=== PATIENT | male | born 1960 | race Caucasian/White ===

== ENCOUNTER → 2017-05-20 06:26 | Outpatient (CLI) | payer OTHER, SELFPAY ==
--- NOTE | 2017-05-20 11:21 | STRESSREP_ITS ---
Stress Test Report Exercise myocardial perfusion stress test. 56-year-old man with previous coronary artery disease from [place] [employer] physical. Medications simvastatin and aspirin. Stress test: Resting EKG demonstrates normal sinus rhythm with a rate of 72 bpm and premature ventricular complexes. Resting blood pressure is 140/88 mmHg. Patient exercised according to the regular Kit protocol total duration of 9 minutes completing stage III of the Kit protocol. The maximum heart rate attained was 137 bpm was 84% maximum predicted heart rate maximum workload attained was 10.1 metabolic equivalents. Patient maintained sinus rhythm throughout the recording with occasional premature atrial and ventricular complexes. There was one episode of ventricular couplet activity noted. At rest there were no ST or T-wave changes noted suggest ischemia at peak exercise upsloping ST changes only were noted with no meet the criteria for ischemia. The resting blood pressure was 140/88 with a peak blood pressure 164/78. No clinical angina was noted the test was terminated due to leg fatigue rate pressure product was 22,300. Myocardial perfusion protocol: 10.0 mCi of sestamibi was injected at rest. The patient exercised according to regular Kit protocol for 9 minutes attaining 84% of maximum predicted heart rate and a workload of 10.1 metabolic equivalents at peak exercise 35.0 mCi of technetium 99m sestamibi was injected stress images were obtained stress and rest images were reconstructed and compared in the short axis vertical long horizontal long axis. Gated images were not obtained. Perfusion SPECT analysis: Review of the stress images demonstrate a normal cardiac silhouette size. There is uniform uptake of tracer noted in all areas of the myocardium the septum anterior wall lateral inferior wall appeared to be well perfused. The resting images appear to demonstrate a similar patent. No obvious areas of reversibility are noted suggest ischemia. No clinical angina is noted. Conclusion: Normal exercise myocardial perfusion stress test at a high workload. No clinical angina noted. Good functional aerobic capacity.
== END ==
PROVIDERS: Family Provider Family Medicine; PCP Family Medicine; Visit Provider Internal Medicine Cardiovascular Disease
DX: I25.10 Atherosclerotic heart disease of native coronary artery without angina pectoris (principal); Z95.5 Presence of coronary angioplasty implant and graft
CPT/HCPCS: 78452; 93017; A9500; A4216

== ENCOUNTER → 2017-08-17 06:58 | Outpatient (CLI) | payer OTHER, SELFPAY ==
[2017-08-17 08:53] LABS: AST(SGOT) 23 U/L (15-37); Alanine Aminotransfer ALT/SGPT 37 U/L (16-61); Albumin, Serum 3.7 g/dL (3.2-5.0); Alkaline Phosphatase 78 U/L (45-117); Bilirubin, Direct 0.23 mg/dL (0.00-0.30); Cholesterol 142 mg/dL (200); Globulin 3.3 g/dL (2.2-4.2); High Density Lipoprotein 46 mg/dL; Triglycerides 115 mg/dL; Very Low Density Lipoprotein 23 mg/dL (5-40)
== END ==
PROVIDERS: Family Provider Family Medicine; PCP Family Medicine; Visit Provider Internal Medicine Cardiovascular Disease
DX: E78.5 Hyperlipidemia, unspecified (principal); I25.10 Atherosclerotic heart disease of native coronary artery without angina pectoris
CPT/HCPCS: 36415; 80061; 80076

== ENCOUNTER → 2018-07-26 11:30 | Outpatient (CLI) | payer OTHER, SELFPAY ==
[2017-08-13 15:56] VITALS: BMI 31.4
[2018-07-26 10:29] LABS: AST(SGOT) 27 U/L (15-37); Alanine Aminotransfer ALT/SGPT 41 U/L (16-61); Albumin, Serum 3.8 g/dL (3.2-5.0); Alkaline Phosphatase 85 U/L (45-117); Bilirubin, Direct 0.27 mg/dL (0.00-0.30); Cholesterol 148 mg/dL (200); Globulin 3.5 g/dL (2.2-4.2); High Density Lipoprotein 49 mg/dL; Protein, Total 7.3 g/dL (6.4-8.2); Triglycerides 95 mg/dL; Very Low Density Lipoprotein 19 mg/dL (5-40)
== END ==
PROVIDERS: Referring Provider Internal Medicine Cardiovascular Disease; Visit Provider Internal Medicine Cardiovascular Disease
DX: E78.5 Hyperlipidemia, unspecified (principal); I25.10 Atherosclerotic heart disease of native coronary artery without angina pectoris; Z98.61 Coronary angioplasty status
CPT/HCPCS: 36415; 80061; 80076

== ENCOUNTER → 2019-02-20 10:43 | Outpatient (CLI) | payer OTHER, SELFPAY ==
[2018-08-14 16:15] VITALS: BMI 30.9
--- NOTE | 2019-02-20 11:30 | MRI_ITS ---
PROCEDURE: MRI LOWER EXTREMITY RIGHT TIBIA/FIBULA REASON FOR EXAM: Medial mid calf pain status post injury. TECHNIQUE: Standardized fat and water weighted pulse sequences were obtained in all 3 orthogonal planes. COMPARISON: None. FINDINGS: Normal tibia and fibula, without a periosteal, cortical or cancellous marrow abnormality. There is a partial tear of the medial gastrocnemius musculotendinous junction (inversion recovery axial image 17) with mild adjacent fluid/hemorrhage and mild edema in the distal medial gastrocnemius muscle (inversion recovery coronal image 9). The distal Achilles tendon is intact (T2 sagittal images 10, 11). There is edema in the subcutis adipose space, greatest anteriorly. There is no solid, cystic or lipomatous mass lesion of the subcutis adipose space. MRI/Lower Ext/No Jt/w/o IMPRESSION: Partial tear of the medial gastrocnemius musculotendinous junction. Electronically Signed: Levar Mckeon MD at 12:50 EST Tel , Service support ,
--- NOTE | 2019-02-20 11:45 | RAD_ITS ---
STUDY: X-RAY - ORBITS REASON FOR EXAM: Male, 58 years old. History of metal in the eyes from previous work injury. TECHNIQUE: 2 view(s) of the orbits were obtained. COMPARISON: None. FINDINGS: Normal bilateral orbits without a metallic orbital foreign body. Normal visualized facial bones. Mucosal thickening of the left maxillary sinus. The soft tissue structures are unremarkable. RAD/Orbits for Foreign Body IMPRESSION: No demonstrated metallic orbital foreign body. The patient is cleared for an MRI examination. Electronically Signed: Douglas Ring, at 11:09 EST , Service support ,
== END ==
PROVIDERS: Family Provider Student in an Organized Health Care Education/Training Program; PCP Student in an Organized Health Care Education/Training Program; Referring Provider Emergency Medicine; Visit Provider Emergency Medicine
DX: S86.911A Strain of unspecified muscle(s) and tendon(s) at lower leg level, right leg, initial encounter (principal)
CPT/HCPCS: 70030; 73718

== ENCOUNTER → 2019-03-23 05:50 | Outpatient (CLI) | payer OTHER, SELFPAY ==
[2018-08-14 16:15] VITALS: BMI 30.9
--- NOTE | 2019-03-23 13:05 | STRESSREP ---
Stress Test Report Pharmacologic myocardial perfusion stress test. 58-year-old man with a history of previous right coronary angioplasty. Stress protocol: Resting EKG demonstrates normal sinus rhythm with a rate of 71 bpm occasional premature ventricular complex noted resting blood pressure is 136/86 mmHg. 0.4 mg of regadenoson was infused per usual protocol followed by Intravenous saline flush injection continuous EKG monitoring was performed. The maximum heart rate attained was 100 bpm which was 62% of maximum predicted heart rate the maximum workload was 1 metabolic equivalent. At rest there were no ST or T wave changes noted suggest abnormal flow reserve at peak infusion, nonspecific ST-T wave changes were noted with no meet the criteria for ischemia. The resting blood pressure was 136/86 with a final blood pressure 120/82. Myocardial perfusion protocol. 12.0 mCi of technetium 99m sestamibi was injected at rest. 0.4 mg of regadenoson was infused per usual protocol peak infusion 36.0 mCi of technetium 99m sestamibi was injected stress images were obtained stress and rest images were reconstructed and compared in the short axis vertical long horizontal long axis. Gated images was obtained PACS Perfusion SPECT analysis: Review of the stress images demonstrate a normal cardiac silhouette size. There is a small defect noted in the basal to mid inferior wall present on the stress and rest images to a similar extent. The above is suggestive of a basal inferior infarct noted no obvious areas of reversibility are noted. No ischemia is noted. Gated SPECT analysis: The gated ejection fraction is noted to be 67%. Conclusion: Normal pharmacologic myocardial perfusion stress test with evidence of basal inferior infarct. Preserved ejection fraction.
== END ==
PROVIDERS: Family Provider Student in an Organized Health Care Education/Training Program; PCP Student in an Organized Health Care Education/Training Program; Referring Provider Nurse Practitioner Family; Visit Provider Nurse Practitioner Family
DX: I25.10 Atherosclerotic heart disease of native coronary artery without angina pectoris (principal); E78.5 Hyperlipidemia, unspecified; Z98.61 Coronary angioplasty status
CPT/HCPCS: 78452; 93017; A9500; A4216; J2785

== ENCOUNTER 2019-11-13 03:54 | Emergency (ER) | payer BC, SELFPAY ==
[2019-08-20 14:52] VITALS: BMI 31.6
[2019-11-13 03:55] VITALS: BP 154/94; PULSE 61; RESP 18; TEMP 36.3; O2SAT 96; BMI 32.1
--- NOTE | 2019-11-13 04:05 | CT_ITS ---
STUDY: CT ABDOMEN AND PELVIS WITHOUT CONTRAST REASON FOR EXAM: Male, 59 years old patient with right-sided flank pain starting this morning. Past medical history of GERD, kidney stones and prior hernia repair. RADIATION DOSAGE (If Supplied By Facility): CTDIvol = ( 12.79 ) mGy, DLP = ( 690.23 ) mGycm TECHNIQUE: Transaxial images were obtained from the dome of the diaphragm to the symphysis pubis without oral contrast, and without intravenous contrast. Sagittal and coronal images were reconstructed. Individualized dose optimization techniques were used for this CT. COMPARISON: None. FINDINGS: There is a small calcified left lower lobe pulmonary nodule. Views of the bumpy pleural thickening at the right lung base and left lung base. No pleural effusions are visualized. The visualized portions of the heart are within normal limits. There is increased epicardial and pericardial fat. There are multiple calcified mediastinal and hilar lymph nodes. Normal liver. Normal gallbladder and extrahepatic biliary system. Normal spleen. Normal pancreas. Normal bilateral adrenal glands. There is mild right-sided hydronephrosis and hydroureter secondary to a distal ureteral calculus at the ureterovesical junction measuring up to 4 mm in greatest dimension. Normal left kidney. Normal visualized stomach. There is no evidence for dilated bowel, ascites or pneumoperitoneum. Small bowel has a grossly normal appearance. The descending colon is nondistended. Stool is visible in the ascending colon and transverse colon primarily. The appendix is visualized and appears normal. There is mild atherosclerotic calcification of the abdominal aorta and common iliac arteries, without a demonstrated aneurysm. Normal inferior vena cava. Normal retroperitoneum. Normal urinary bladder. Normal visualized prostate gland. There are multiple pelvic calcifications probably secondary to phleboliths. Normal abdominal wall. Normal osseous structures. CT/Abdomen/Pelvis without Cont IMPRESSION: Mild right-sided hydronephrosis and hydroureter secondary to distal ureteral calculus. Electronically Signed: Marlene Krueger MD at 6:27 EDT , Service support ,
[2019-11-13] MEDS: Ketorolac 30 MG/ML Syringe 15 MG IV (04:12)
[2019-11-13 04:13] LABS: Absolute Neutrophil Count 4.2 X10^3/uL (2.0-7.7); Basophil# 0.04 X10^3/uL; Basophil% 0.7 % (0-1); Eosinophil# 0.13 X10^3/uL; Eosinophils% 2.2 % (0-5); Hematocrit 47.8 % (40-54); Hemoglobin 15.6 g/dL (13.0-16.5); Lymphocyte % 18.5 % (19-41); Mean Corp Hgb Conc 32.6 g/dL (32-36); Mean Corpuscular Hgb 29.4 pg (27.0-32.0); Mean Corpuscular Volume 90.2 fL (80-94); Mean Platelet Vol. 9.3 fl (6.2-12.0); Monocyte# 0.44 X10^3/uL; Monocyte% 7.4 % (0-10); NRBC Flagged by Analyzer 0 % (0-5); Neutrophil # 4.22 X10^3/uL (2.7-7.7); Platelet Count 208 K/mm3 (150-450); RBC Distribution Width CV 13.7 % (11.6-14.6); RBC Distribution Width SD 44.7 fl (35.1-43.9); White Blood Count 5.9 K/mm3 (4.4-11.0)
[2019-11-13] MEDS: 0.9% Normal Saline 1,000 ML 125 ML IV (04:13)
--- NOTE | 2019-11-13 04:13 | ED.DCSUM_ITS ---
- ER Visit Summary Date of Service: 11/13/19 Chief Complaint: [Right flank pain] History of Present Illness: The patient is a 59 M [presents to the emergency department with right lower quadrant and flank pain that started around 1:30 AM. Patient states the pain initially was mild but then became severe and rated about a 9 out of 10 at its worst. Currently states his pain is down to about a 2 although he does feel some pressure in the lower abdomen. Patient states that about 30 years ago he had a kidney stone. He denies any fevers or recent illness. He did have some mild nausea associated with the pain. Patient did feel like he needed to urinate but then only was able to get a small amount of urine out. He denies any blood in his stool. Patient has history of coronary artery disease, high cholesterol, pulmonary fibrosis, asthma, and history of kidney stones. Patient has had prior hernia repair.] Physical Examination: [HEENT-PERRLA, EOMI. Cranial nerves II through XII grossly intact. TMs clear. Mucous membranes moist. No adenopathy. Cardiovascular-regular rate and rhythm without murmur or ectopy Lungs-clear to auscultation, chest wall stable without crepitus or subcu emphysema Abdomen-normoactive bowel sounds, soft. Patient has tenderness palpation over right lower quadrant with some guarding. There is no rebound, rigidity, or peritoneal signs. No CVA tenderness on exam. Extremities-intact ?4, normal range of motion, normal pulses, atraumatic] Test Results: [CBC with differential was unremarkable. Chemistries unremarkable. Urinalysis showed 10-25 RBCs without signs of infection. CT scan of the abdomen pelvis without contrast interpreted by myself as ureteral calcification at the right UVJ with mild hydroureter and hydronephrosis. Stone measures approximately 4.9 mm however official report from radiology pending.] Emergency Department Course and Treatment: [She was medicated with Toradol 15 mg IV. Patient continues to be quite comfortable.] Treatment Plan: [We will be given urine strainers. Patient given a prescription for [place] for pain.] Disposition: [Discharged home in stable condition. Patient advised to follow-up with urology within next 3 to 5 days. Patient advised to return if worsening pain, fever, vomiting, or condition should worsen anyway.] Impression: [Right-sided ureteral lithiasis with colic] This note was generated with [employer] dictation software. It may contain incorrect words, spelling, and punctuation that were not noted in review of the chart prior to signing ED Disposition - Plan for ED Patient: Referrals: Kal Vazquez DO [Primary Care Provider] -
[2019-11-13 04:18] LABS: Squamous Epithelial Cells - UA 0 SEEN /hpf (0-5)
[2019-11-13 04:19] LABS: Color, Urine Yellow (Yellow); Glucose, Dipstick Normal (Normal); Ketone-Dipstick 5 mg/dl (Negative); Leukocyte Esterase-Dipstick 25 /ul (Negative); Nitrite-Dipstick Negative (Negative); Occult Blood-Urine 250 /ul (Negative); Protein-Dipstick 30 mg/dl (Negative); Urine Bilirubin Dipstick Negative (Negative); Urine Clarity Sl. Cloudy (Clear); Urine Urobilinogen Normal (Normal)
[2019-11-13 04:23] LABS: Anion Gap 4 (5-15); BUN 13 mg/dL (7-18); BUN/Creat Ratio 12.6 RATIO (10-20); Calcium,Total 8.3 mg/dL (8.5-10.1); Chloride 108 mmol/L (98-107); Creatinine, Serum 1.03 mg/dL (0.70-1.30); EST Glomerular Filtration Rate 78 mL/min (>60); Est Glom Filt Rate - Afr Amer 95 mL/min (>60); Estimated Creatinine Clearance 66.34 ml/min; Glucose 131 mg/dL (74-106); Potassium 3.4 mmol/L (3.5-5.1); Sodium Level 140 mmol/L (136-145)
[2019-11-13 04:27] LABS: Red Blood Cells-Urine 10-25 SEEN /hpf (0-5)
[2019-11-13 04:28] LABS: Mucous, Urine RARE /hpf (<or=2+); White Blood Cells 0-5 SEEN /hpf (0-5)
[2019-11-13 04:29] LABS: Bacteria 1+ /hpf (None Seen)
--- NOTE | 2019-11-13 04:44 | ED.DEP ---
ED Disposition - Plan for ED Patient: Instructions: ED Renal Stone w Colic Prescriptions: Hydrocodone Bitart/Apap 5-325 [[place] 5MG-325MG] 1 tab PO Q4H PRN PRN 2 Days #14 tab PRN Reason: Pain Prescription Printed Ondansetron [Zofran Odt] 4 mg PO Q8H PRN PRN #10 tab PRN Reason: Nausea Prescription Printed Referrals: Kal Vazquez DO [Primary Care Provider] - Sergey Martin MD [STAFF PHYSICIAN] - 3-5 Days
[2019-11-13 06:26] VITALS: RESP 16
== END 2019-11-13 06:46 | disposition home or self-care (01) ==
LOC: ED 04:45
PROVIDERS: Emergency Provider Emergency Medicine; PCP Student in an Organized Health Care Education/Training Program
DX: N13.2 Hydronephrosis with renal and ureteral calculous obstruction (principal); I25.10 Atherosclerotic heart disease of native coronary artery without angina pectoris; E78.00 Pure hypercholesterolemia, unspecified; J45.909 Unspecified asthma, uncomplicated; K21.9 Gastro-esophageal reflux disease without esophagitis; Z87.442 Personal history of urinary calculi
CPT/HCPCS: 74176; 80048; 81001; 85025; 96361; 96374; 99283; J7030; A4216

== ENCOUNTER → 2021-03-23 06:11 | Outpatient (CLI) | payer BC, SELFPAY ==
--- NOTE | 2021-03-23 17:08 | STRESSREP ---
Stress Test Report Pharmacologic myocardial perfusion stress test. 60-year-old man with a history of known coronary artery disease status post stenting of the right coronary artery. Medications aspirin, simvastatin, omeprazole. Stress protocol: Resting EKG demonstrates sinus rhythm with a rate of 65 bpm with a blood pressure of 160/90 mmHg. 0.4 mg of regadenoson was infused per usual protocol followed by rapid intravenous saline flush injection continuous EKG monitoring was performed. Patient maintained sinus rhythm throughout the recording with occasional premature ventricular complexes some of which were interpolated. The maximum heart rate was 96 bpm which was 60% of maximum predicted heart rate and the maximum workload was 1 metabolic equivalent. The peak blood pressure was 160/[address] or T wave changes were noted to suggest abnormal flow reserve. Myocardial perfusion protocol. 14.1 mCi of technetium 99m sestamibi was injected at rest. 0.4 mg of regadenoson was infused per usual protocol. At peak infusion 43.8 mCi of technetium 99m sestamibi was injected stress images were obtained stress and rest images were reconstructed and compared in the short axis vertical long and horizontal long axis. Gated images were also obtained. Perfusion SPECT analysis: Review of the images demonstrate normal uptake of tracer noted in all areas except for the basal inferior wall. The resting images demonstrate a similar pattern. The rest of the cooper appear to be normally perfused. The above is suggestive of a previous basal inferior infarct with no ischemia noted. Gated SPECT analysis: The gated ejection fraction is 67%. Conclusion: Pharmacologic myocardial perfusion stress test with evidence of previous basal inferior infarct. Preserved ejection fraction.
== END ==
PROVIDERS: PCP Student in an Organized Health Care Education/Training Program; Referring Provider Internal Medicine Cardiovascular Disease; Visit Provider Internal Medicine Cardiovascular Disease
DX: I25.10 Atherosclerotic heart disease of native coronary artery without angina pectoris (principal); Z95.5 Presence of coronary angioplasty implant and graft
CPT/HCPCS: 78452; 93017; A9500; A4216; J2785

== ENCOUNTER → 2023-04-05 | Outpatient (CLI) | payer BC, SELFPAY ==
--- NOTE | 2023-04-05 15:14 | STRESSREP ---
Stress Test Report Pharmacologic myocardial perfusion stress test. 62-year-old man with a history of coronary artery disease. Stress test for [employer] physical. Resting EKG demonstrates sinus rhythm with a rate of 61 bpm. Resting blood pressure is 158/90 mmHg. 0.4 mg of regadenoson was infused per usual protocol followed by rapid intravenous saline flush injection. Continuous EKG monitoring was performed. The maximum heart rate was 89 bpm which was 56% of max impacted heart rate the maximum workload was 1 metabolic equivalent. Occasional premature ventricular complexes were noted. At rest there were no ST or T wave changes noted to suggest ischemia and at peak infusion nonspecific ST changes were noted which did not meet the criteria for ischemia. No clinical angina is noted. The final blood pressure was 134/70 mmHg. Myocardial perfusion protocol. 14.2 mCi of technetium 99m sestamibi was injected at rest. 0.4 mg of regadenoson was infused per usual protocol. At peak infusion 45.0 mCi of technetium 99m sestamibi was injected stress images were obtained stress and rest images were reconstructed and compared in the short axis vertical long and horizontal long axis. Gated images were also obtained. Perfusion SPECT analysis: Review of the stress images demonstrate normal uptake of tracer noted in all areas of the myocardium. There is a small area of basal inferior infarct present. The resting images similar demonstrated normal uptake of tracer noted in all areas of the myocardium. A small basal inferior infarct is present. No areas of reversibility are noted to suggest ischemia. Gated SPECT analysis: The gated ejection fraction is 57%. Conclusion: Normal pharmacologic myocardial perfusion stress test. Preserved ejection fraction.
== END | disposition home or self-care (01) ==
LOC: CVS 06:30
PROVIDERS: PCP Student in an Organized Health Care Education/Training Program; Referring Provider Internal Medicine Cardiovascular Disease; Visit Provider Internal Medicine Cardiovascular Disease
DX: I25.10 Atherosclerotic heart disease of native coronary artery without angina pectoris (principal); Z95.5 Presence of coronary angioplasty implant and graft
CPT/HCPCS: 78452; 93017; A9500; A4216; J2785

== ENCOUNTER 2024-04-24 16:21 | Emergency (ER) | payer BC, SELFPAY ==
[2024-04-24] VITALS (8 sets, daily range): BP systolic 136–163; BP diastolic 58–102; PULSE 68–96; RESP 18–24; TEMP 36.9–37; O2SAT 95–98; BMI 33.4
--- NOTE | 2024-04-24 16:25 | EKG12_ITS ---
Test Reason : ARRYTH Blood Pressure : */* mmHG Vent. Rate : 76 BPM Atrial Rate : 76 BPM P-R Int : 152 ms QRS Dur : 88 ms QT Int : 362 ms P-R-T Axes : * -7 -1 degrees QTcB Int : 407 ms Sinus rhythm with frequent Premature ventricular complexes in a pattern of bigeminy Inferior infarct (cited on or before 27-Jul-1999) Abnormal ECG Confirmed by Otilio Collado ([id number]), field map editor ELIOT RAZA ([id number]) on 04/27/2024 10:23:43 AM Referred By: MARION/SALVADOR Confirmed By: Otilio Collado
--- NOTE | 2024-04-24 16:39 | EX.ED.DYSGE1 ---
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 He is not sure why they did an EKG. He has no symptoms and denies chest pain, shortness of breath, palpitations, lightheadedness, syncope, nausea vomiting or abdominal pain. He had a heart attack around 1998 and had stents placed. He denies cardiac events since then. He is on aspirin and a statin. He is a patient of Dr. Oh and reports having a normal echocardiogram in February 2024. 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 HLD (hyperlipidemia) Home Medications ?Medication ?Instructions ?Recorded ?Last Taken ?Type ascorbic acid (vitamin C) 1,000 mg 1,000 mg PO DAILY 03/15/16 Unknown History tablet aspirin 81 mg tablet,delayed 81 mg PO DAILY 03/15/16 Unknown History release multivitamin with folic acid 400 1 tab PO DAILY 03/15/16 Unknown History mcg tablet omeprazole 20 mg capsule,delayed 20 mg PO DAILY 03/15/16 Unknown History release albuterol sulfate 90 mcg/actuation 2 puff inhalation Q2H PRN PRN 08/09/17 Unknown History aerosol inhaler Asthma 30 days ##9 montelukast 10 mg tablet 10 mg PO QDAY 08/09/17 Unknown History (Singulair) simvastatin 40 mg tablet 40 mg PO QHS #90 tabs 07/17/19 Unknown Rx nitroglycerin 0.4 mg sublingual 0.4 mg sublingual Q5-15M PRN chest 09/11/22 Unknown Rx tablet (Nitrostat) pain #25 tabs budesonide 180 mcg/actuation 2 inh inhalation BID 04/09/24 Unknown History breath activated powder inhaler (Pulmicort Flexhaler) cholecalciferol (vitamin D3) 25 1,000 unit PO DAILY 04/24/24 Unknown History mcg (1,000 unit) capsule (Vitamin D3) Allergy/AdvReac Type Severity Reaction Status Date / Time No Known Allergies Allergy Verified 04/24/24 16:22 Family History Father CAD (coronary artery disease) Mother Breast cancer Surgical History History of left heart catheterization (03/30/99) History of coronary artery stent placement (02/27/99) History of herniorrhaphy Social History Smoking Status: Never smoker alcohol intake: never substance use type: does not use caffeine: Yes Type: tea Number of servings: 1 what type of physical activity do you participate in: other seatbelt use: always do you feel safe at home: Yes ROS <ANTONIO May - Last Filed: 04/24/24 17:25> ROS ED ROS Narrative Constitutional: Negative for fever, chills, malaise. CVS: Negative for palpitations, chest pain, syncope. Respiratory: Negative for shortness of breath, cough. GI: Negative for abdominal pain, nausea, vomiting. EXAM <ANTONIO May - Last Filed: 04/24/24 17:25> Physical Exam Narrative Exam Narrative: CONST: Patient sitting in no acute distress. EYES: Normal inspection. NECK: Normal inspection. RESP: No respiratory distress, CTAB. CVS: Regular rate and rhythm, no murmur, no gallop. SKIN: Color normal, no rash, warm, dry, intact. EXTREMITIES: Normal appearance, no pedal edema. NEURO: Alert and answering questions appropriately. PSYCH: Normal affect. Const Vital Signs: 04/24/24 16:22 04/24/24 16:22 04/24/24 16:25 Temperature 98.4 F Temperature Source Oral Pulse Rate 83 73 Respiratory Rate 18 20 H Respiratory Effort Normal Blood Pressure 163/102 H 136/102 H Blood Pressure Mean 122 113 Pulse Ox 96 98 Oxygen Delivery Method Room Air Room Air 04/24/24 16:26 04/24/24 16:30 04/24/24 16:33 Temperature Temperature Source Pulse Rate 68 92 78 Respiratory Rate 19 H 24 H 20 H Respiratory Effort Blood Pressure 158/77 H 158/77 H Blood Pressure Mean 102 104 Pulse Ox 95 Oxygen Delivery Method Room Air 04/24/24 16:51 04/24/24 17:00 04/24/24 17:15 Temperature Temperature Source Pulse Rate 77 95 96 Respiratory Rate 21 H 21 H 24 H Respiratory Effort Blood Pressure 136/88 H Blood Pressure Mean 102 Pulse Ox 97 Oxygen Delivery Method Room Air <Toi Celeste MD - Last Filed: 04/24/24 17:27> Physical Exam Const Vital Signs: 04/24/24 16:22 04/24/24 16:22 04/24/24 16:25 Temperature 98.4 F Temperature Source Oral Pulse Rate 83 73 Respiratory Rate 18 20 H Respiratory Effort Normal Blood Pressure 163/102 H 136/102 H Blood Pressure Mean 122 113 Pulse Ox 96 98 Oxygen Delivery Method Room Air Room Air 04/24/24 16:26 04/24/24 16:30 04/24/24 16:33 Temperature Temperature Source Pulse Rate 68 92 78 Respiratory Rate 19 H 24 H 20 H Respiratory Effort Blood Pressure 158/77 H 158/77 H Blood Pressure Mean 102 104 Pulse Ox 95 Oxygen Delivery Method Room Air 04/24/24 16:51 04/24/24 17:00 04/24/24 17:15 Temperature Temperature Source Pulse Rate 77 95 96 Respiratory Rate 21 H 21 H 24 H Respiratory Effort Blood Pressure 136/88 H Blood Pressure Mean 102 Pulse Ox 97 Oxygen Delivery Method Room Air [facility] <ANTONIO May - Last Filed: 04/24/24 17:25> [facility] Narrative Medical decision making narrative: Consults: Cardiology Differential: Arrhythmia, electrolyte abnormality 63 male was sent in for an EKG showing PVCs in pattern of bigeminy. He is completely asymptomatic. He is hemodynamically stable. I consulted Dr. Collado in cardiology who recommended checking the patient's electrolytes and magnesium and replete them if needed. He states no medication is needed for his asymptomatic PVCs but did recommend the patient follow-up with the cardiology office as they may do an outpatient Holter monitor. Patient's blood work is all in the normal range and he was discharged in stable condition. Lab Data Attestation: I reviewed the patient's lab results. Labs: Laboratory Results - last 24 hr 04/24/24 16:44 WBC 8.3 RBC 5.34 Hgb 16.1 Hct 47.5 MCV 89.0 MCH 30.1 MCHC 33.9 RDW Std Deviation 43.0 RDW Coeff of Arian 13.3 Plt Count 242 MPV 9.4 Immature Gran % (Auto) 0.400 Neut % (Auto) 66.0 Lymph % (Auto) 21.4 [place] % (Auto) 8.2 Eos % (Auto) 3.4 Baso % (Auto) 0.6 Absolute Neuts (auto) 5.5 Absolute Lymphs (auto) 1.77 Nucleated RBC % 0 Sodium 140 Potassium 3.8 Chloride 110 H Carbon Dioxide 25.0 Anion Gap 4 L BUN 18 Creatinine 0.81 Estim Creat Clear Calc 95.57 Est GFR (MDRD) Af Amer 123 Est GFR (MDRD) Non-Af 102 BUN/Creatinine Ratio 22.2 H Glucose 97 Calcium 9.4 Magnesium 2.0 EKG Initial EKG: Attestation: I personally reviewed and interpreted this EKG as follows: Interpretation: Sinus Rhythm Comments: Sinus rhythm with PVCs and pattern of bigeminy, 76 bpm Normal intervals, no acute ischemic changes <Toi Celeste MD - Last Filed: 04/24/24 17:27> [facility] Lab Data Labs: Laboratory Results - last 24 hr 04/24/24 16:44 WBC 8.3 RBC 5.34 Hgb 16.1 Hct 47.5 MCV 89.0 MCH 30.1 MCHC 33.9 RDW Std Deviation 43.0 RDW Coeff of Arian 13.3 Plt Count 242 MPV 9.4 Immature Gran % (Auto) 0.400 Neut % (Auto) 66.0 Lymph % (Auto) 21.4 [place] % (Auto) 8.2 Eos % (Auto) 3.4 Baso % (Auto) 0.6 Absolute Neuts (auto) 5.5 Absolute Lymphs (auto) 1.77 Nucleated RBC % 0 Sodium 140 Potassium 3.8 Chloride 110 H Carbon Dioxide 25.0 Anion Gap 4 L BUN 18 Creatinine 0.81 Estim Creat Clear Calc 95.57 Est GFR (MDRD) Af Amer 123 Est GFR (MDRD) Non-Af 102 BUN/Creatinine Ratio 22.2 H Glucose 97 Calcium 9.4 Magnesium 2.0 Management Discussion w/another healthcare provider: [employer] (Dr. Otilio Collado, cardiology) Treatment and Re-Evaluation :: Dr. Celeste: I have personally performed a face to face assessment of the patient and have reviewed the BIGG Note. I performed a substantive portion of the visit including all aspects of the following. My serra findings include: History is patient was having his annual DOT examination. They performed EKG and noticed PVCs. He arrives via EMS for asymptomatic PVCs. Denies chest pain, shortness of breath, or other symptoms. Exam is GCS 15. ABCs intact. Cardiovascular examination reveals bigeminy. Lungs clear to auscultation bilaterally. Abdomen soft with positive bowel sounds. Medical Decision Making: Check EKG. EKG interpreted by myself independently shows bigeminy. Discussed with Dr. Collado. Check labs. I reviewed the CBC which is grossly unremarkable, potassium and magnesium normal. Patient will be discharged to follow-up with cardiology for possible Holter monitoring. Discharge. Other additions or changes: [None] Discharge Plan Triage Chief Complaint: Chest Other ED Midlevel Provider: Sally Villasenor ED Provider: Toi Celeste Dx/Rx/DC Orders Clinical Impression: Asymptomatic PVCs, Bigeminal rhythm Instructions: PVCs Prescriptions: No Action albuterol sulfate 90 mcg/actuation HFA aerosol inhaler 2 puff INHALATION Q2H PRN PRN (Reason: Asthma) 30 Days Qty: 9 Patient Comments: montelukast [Singulair] 10 mg tablet 10 mg PO QDAY nitroglycerin [Nitrostat] 0.4 mg tablet, sublingual 0.4 mg SUBLINGUAL Q5-15M PRN (Reason: chest pain) Qty: 25 6RF Pulmicort Flexhaler 180 mcg/actuation aerosol powdr breath activated 2 inh inhalation BID ascorbic acid (vitamin C) 1,000 MG tablet 1,000 mg PO DAILY aspirin 81 MG tablet,delayed release (DR/EC) 81 mg PO DAILY omeprazole 20 MG capsule 20 mg PO DAILY Patient Comments: REFLUX multivitamin with folic acid 1 TABLET tablet 1 tab PO DAILY cholecalciferol (vitamin D3) [Vitamin D3] 25 mcg (1,000 unit) capsule 1,000 unit PO DAILY simvastatin 40 mg tablet 40 mg PO QHS Qty: 90 3RF Primary Care Provider: Kal Vazquez Referrals: García Oh MD [Med Staff - Active Staff] - Kal Vazquez DO [Primary Care Provider] - Activity Restrictions/Additional Instructions: Follow up with cardiology as they may order a holter monitor. Print Language: Macedonian Disposition Disposition: Home, Self Care
[2024-04-24 17:00] LABS: Absolute Lymphocyte Count 1.77 X10^3/uL (0.83-4.51); Absolute Neutrophil Count 5.5 X10^3/uL (2.0-7.7); Basophil# 0.05 X10^3/uL; Basophil% 0.6 % (0-1); Eosinophil# 0.28 X10^3/uL; Eosinophils% 3.4 % (0-5); Hematocrit 47.5 % (40-54); Hemoglobin 16.1 g/dL (13.0-16.5); Lymphocyte # 1.77 X10^3/ul (0.83-4.51); Lymphocyte % 21.4 % (19-41); Mean Corp Hgb Conc 33.9 g/dL (32-36); Mean Corpuscular Hgb 30.1 pg (27.0-32.0); Mean Platelet Vol. 9.4 fl (6.2-12.0); Monocyte# 0.68 X10^3/uL; Monocyte% 8.2 % (0-10); NRBC Flagged by Analyzer 0 % (0-5); Neutrophil # 5.46 X10^3/uL (2.7-7.7); Platelet Count 242 K/mm3 (150-450); RBC Distribution Width CV 13.3 % (11.6-14.6); Red Blood Count 5.34 M/mm3 (4.6-6.2); White Blood Count 8.3 K/mm3 (4.4-11.0)
[2024-04-24 17:17] LABS: Anion Gap 4 (5-15); BUN 18 mg/dL (7-18); BUN/Creat Ratio 22.2 RATIO (10-20); Calcium,Total 9.4 mg/dL (8.5-10.1); Chloride 110 mmol/L (98-107); Creatinine, Serum 0.81 mg/dL (0.70-1.30); EST Glomerular Filtration Rate 102 mL/min (>60); Est Glom Filt Rate - Afr Amer 123 mL/min (>60); Estimated Creatinine Clearance 95.57 ml/min; Glucose 97 mg/dL (74-106); Potassium 3.8 mmol/L (3.5-5.1); Sodium Level 140 mmol/L (136-145)
== END 2024-04-24 17:30 | disposition home or self-care (01) ==
PROVIDERS: Physician Assistant; Emergency Provider Emergency Medicine; PCP Student in an Organized Health Care Education/Training Program; Visit Provider Emergency Medicine
DX: I49.3 Ventricular premature depolarization (principal); I25.10 Atherosclerotic heart disease of native coronary artery without angina pectoris; E78.5 Hyperlipidemia, unspecified; Z79.82 Long term (current) use of aspirin; I25.2 Old myocardial infarction; Z95.5 Presence of coronary angioplasty implant and graft; R00.8 Other abnormalities of heart beat
CPT/HCPCS: 80048; 83735; 85025; 93005; 99285; A4216

== ENCOUNTER → 2024-05-07 | Outpatient (CLI) | payer BC, SELFPAY ==
--- NOTE | 2024-05-07 17:33 | STRESSREP ---
Stress Test Report Exercise myocardial perfusion stress test. 63-year-old man with a history of premature ventricular complexes. Stress protocol: Resting EKG demonstrates sinus bradycardia with a rate of 54 bpm resting blood pressure is 130/90 mmHg. The patient exercised according to the regular Kit protocol for a total duration of 7 minutes and 30 seconds attaining a maximum heart rate of 133 bpm which was 85% of maximum predicted heart rate; the maximum workload was 10.1 metabolic equivalents. At rest there were no ST or T wave changes noted to suggest ischemia and at peak exercise upsloping ST changes only were noted which did not meet the criteria for ischemia. No clinical angina was noted the test was terminated due to the target heart rate being achieved/fatigue. The peak blood pressure was 174/94 mmHg. Rate-pressure product was 18,000. Myocardial perfusion protocol. 10.9 mCi of technetium 99m sestamibi was injected at rest. The patient exercised according to regular Kit protocol for total duration of 7-1/2 minutes and at peak exercise 34.7 mCi of technetium 99m sestamibi was injected stress images were obtained stress and rest images were reconstructed in comparing the short axis vertical long and horizontal long axis. Gated images were also obtained. Perfusion SPECT analysis: Review of the stress images demonstrate normal uptake of tracer noted in all areas of the myocardium. The resting images similarly demonstrate normal uptake of tracer noted in all areas of the myocardium. No areas of reversibility are noted to suggest ischemia no previous infarct was noted. Gated SPECT analysis: The gated ejection fraction is 58%. Conclusion: Normal exercise myocardial perfusion stress test at a high workload Preserved ejection fraction.
== END | disposition home or self-care (01) ==
LOC: CVS 06:19
PROVIDERS: PCP Student in an Organized Health Care Education/Training Program; Referring Provider Physician Assistant Medical; Visit Provider Physician Assistant Medical
DX: I49.3 Ventricular premature depolarization (principal); Z95.5 Presence of coronary angioplasty implant and graft
CPT/HCPCS: 78452; 93017; A9500; A4216

== ENCOUNTER → 2025-04-14 | Outpatient (CLI) | payer BC, SELFPAY ==
--- OUTSIDE RECORDS SUMMARY | 2025-04-14 09:11 | XMS RPT_ITS | CCD ---
Author Organization [facility] Care Team Providers Care Roto Mixer Operator Name Role Phone Kal Vazquez DO Primary Care Provider Dr. Kal Vazquez Primary Care Provider Dr. Kal Vazquez Referring Provider Liang LOPEZ, MED Sainz Attending Provider Dr. García Oh Attending Provider Dr. García Oh Referring Provider Dr. García Oh Other Provider Kal Vazquez DO Primary Care Provider Kal Vazquez DO Primary Care Provider Lackey RECORD CLERK.STENCIL TYPIST, Nani Ewing Unavailable [facility] RECORD CLERK.Yana JACOB Unavailable [facility] RECORD CLERK.Susan JACOB Unavailable Dr. Kal Vazquez DO Primary Care Physician Dr. Kal Vazquez DO Referring Provider Dr. America Agustin DC Attending Physician Kal Vazquez Referring Unavailable Kal Vazquez Primary Care Unavailable America Agustin Attending Unavailable Kal Vazquez Primary Care Unavailable Elena Mireles Attending Unavail able Kal Vazquez Referring Unavailable García Oh Attending Unavailable Kal Vazquez Primary Care Unavailable Kal Vazquez Referring Unavailable Toi Celeste Attending Unavailable Kal Vazquez Primary Care Unavailable Elena Mireles Attending Unavail able Elena Mireles Referring Unavail able Vazquez, Kal Primary Care Unavailable Vazquez, Kal Referring Unavailable Vazquez, Kal Primary Care Unavailable America Agustin Attending Unavailable García Oh Attending Unavailable Elena Mireles Consulting Unavail able Elena Mireles Referring Unavail able Vazquez, Kal Primary Care Unavailable VAZQUEZ, KAL L Primary Care Unavailable SILVIANO MEJIA Referring Unavailable VAZQUEZ, KAL L Primary Care Unavailable SILVIANO MEJIA Attending Unavailable VAZQUEZ, KAL L Referring Unavailable VAZQUEZ, KAL L Referring Unavailable VAZQUEZ, KAL L Primary Care Unavailable VAZQUEZ, KAL L Referring Unavailable VAZQUEZ, KAL L Primary Care Unavailable VAZQUEZ, KAL L Attending Unavailable VAZQUEZ, KAL L Primary Care Unavailable Medications Current Medications Medication Drug Class(es) Dates Sig (Normalized) Sig (Original) [id number] 200 actuat albuterol 0.09 mg/actuat metered dose inhaler (20 sources) beta2-Adrenergic Agonist Start: 08-17-2024 take 2 puff(s) by inhalation every four hours as needed albuterol HFA (PROAIR HFA) 90 mcg/actuation inhaler Inhale 2 puffs as instructed every 4 hours as needed. 18 g 5 08/17/2024 Active Start: 03-22-2021 End: 08-14-2024 take 2 puff(s) by inhalation every four hours as needed albuterol HFA (PROAIR HFA) 90 mcg/actuation inhaler Inhale 2 Puffs as instructed every 4 hours as needed. 18 g 5 08/08/2023 08/14/2024 Discontinued Start: 08-09-2017 Albuterol Sulf ate 90 mcg/actuation HFA aerosol inhaler Active 2 NMA INHALATION EVERY 2 HOURS NEEDED as needed for Asthma August 09, 2017 12:00am Complies with drug therapy Start: 08-09-2017 take 1 puff(s) by in halation every two hours as needed Albuterol Sulfate Active 2 PUFF INHALATION EVERY 2 HOURS NEEDED 01 12August 08, 2017 11:00pm Comment on above: Inhale 2 Puffs as in structed every 4 hours as needed. amoxicillin 875 mg / clavulanate 125 mg oral tablet (1 source) Penicillin-class Antibacterial Start: 3 End: 3 take 1 tablet by mouth twice daily amoxicillin-clavula luis eduardo acid (AUGMENTIN) 875-125 mg per tablet Indications: Acute upper respiratory infection , Other acute sinusitis Take 1 tablet by mouth twice daily for 10 days. 20 tablet 0 06/05/2022 06/15/2022 Active Comment on above: Take 1 tablet by mariaelena twice daily for 10 days. ascorbic acid 1000 mg oral tablet (20 sources) Vitamin C Start: 6 take 1 tablet by mouth once daily Ascorbic Acid (Vitamin C) 1,000 MG tablet Active 1000 mg PO DAILY March 15, 2016 1:00am Complies with drug therapy take 1 tablet by mouth once francisco y ascorbic acid (VITAMIN C) 500 mg tablet Take 500 mg by mouth once daily. Active Comment on above: Take 500 mg by mouth once daily. aspirin 81 mg delayed release oral tablet (20 sources) Platelet Aggregation Inhibitor, Nonsteroidal Anti-inflammatory Drug Start: 03-15-2016 take 1 tablet by mouth once daily Aspirin 81 MG tablet,delayed release (DR/EC) Active 81 mg PO DAILY March 15, 2016 1:00am Complies with drug therapy Aspirin 81 mg OR AL Tab Take 81 mg by mouth. Active Comment on above: Take 81 mg by mouth. Budesonide (20 sources) Corticosteroid Start: 4 take 180 ug by inhalation twice daily Budesonide (Pulmicort Flexhaler) 180 mcg/actuation aerosol powdr breath activated Active 2 NMA INHALATION TWICE A DAY April 09, 2024 1:00am Complies with drug therapy Start: 07-29-2023 End: 09-25-2024 take 2 puff(s) by inhalation twice daily budesonide (PULMICORT FLEXHALER) 180 mcg/actuation aepb Indications: Moderate persistent asthma without complication (HCC) Inhale 2 puffs as instructed two times a day. 3 each 3 09/25/2024 Active Start: 08-21-2022 End: 07-27-2023 take 2 puff(s) by inhalation twice daily budesonide (PULMICORT FLEXHALER) 180 mcg/actuation aepb Indications: Moderate persistent asthma without complication Inhale 2 Puffs as instructed two times a day. 3 Each 3 03/20/2023 07/27/2023 Discontinued Start: 09-16-2018 End: 08-21-2022 take 2 puff(s) by inhalation twice daily budesonide (PULMICORT FLEXHALER) 180 mcg/actuation aepb Inhale 2 Puffs as instructed twice daily. 3 Inhaler 2 09/16/2018 08/21/2022 Discontinued Start: 09-16-2018 take 2 puff(s) by in halation twice daily budesonide (PULMICORT FLEXHALER) 180 mcg/actuation aepb Inhale 2 Puffs as instructed twice daily. 3 Inhaler 2 09/16/2018 Active Start: 03-15-2016 End: 08-20-2019 Budesonide 1 PUFF inhaler Discontinued 2 NMA INHALATION TWICE A DAY March 15, 2016 1:00am August 20, 2019 4:10pm Start: 03-15-2016 End: 08-20-2019 take 1 puff(s) by inhalation twice daily Budesonide Discontinued 2 PUFF INHALATION TWICE A DAY March 15, 2016 12:00am August 20, 2019 3:10pm Comment on above: Inhale 2 Puffs as in structed twice daily. Inhale 2 Puffs as in structed two times a day. cholecalciferol 0.025 mg oral capsule (1 source) Vitamin D Start: 2024 take 1 capsule by mouth once daily Cholecalciferol (Vitamin D3) (Vitamin D3) 25 mcg (1,000 unit) capsule Active 1000 U PO DAILY April 24, 2024 1:00am Complies with drug therapy doxycycline hyclate 100 mg oral tablet (1 source) Tetracycline-class Drug Start: 2023 End: 2023 take 1 tablet by mouth twice daily doxycycline (VIBRA-TABS) 100 mg tablet Take 1 tablet by mouth two times a day for 7 days. 14 tablet 0 08/16/2023 08/23/2023 Active 120 actuat fluticasone propionate 0.22 mg/actuat metered dose inhaler (13 sources) Corticosteroid Start: 2021 End: 2022 take 1 puff(s) by inhalation twice daily fluticasone (FLOVENT HFA) 220 mcg/actuation inhaler Inhale 1 Puff as instructed twice daily. 3 Each 3 06/05/2022 09/03/2022 Active Start: 01-21-2022 take 1 puff(s) by in halation twice daily fluticasone (FLOVENT HFA) 220 mcg/actuation inhaler Inhale 1 Puff as instructed twice daily. 1 Inhaler 5 05/05/2021 Active Start: 08-20-2019 End: 04-09-2024 Fluticasone Propionate 220 mcg/actuation HFA aerosol inhaler Discontinued 1 NMA INHALATION TWICE A DAY August 20, 2019 12:00am April 09, 2024 2:54pm Start: 08-20-2019 Fluticasone Pr opionate Active 1 INH INHALATION TWICE A DAY August 19, 2019 11:00pm Comment on above: Inhale 1 Puff as ins tructed twice daily. montelukast 10 mg oral tablet (20 sources) Leukotriene Receptor Antagonist Start: 8 End: take 1 tablet by mouth once daily at bedtime montelukast (SINGULAIR) 10 mg tablet Indications: Moderate persistent asthma without complication (HCC) Take 1 tablet by mouth daily at bedtime. 90 tablet 3 04/27/2024 Active Comment on above: Take 1 tablet by mariaelena th daily at bedtime. MULTI-VITAMIN ORAL (20 sources) MULTI-VITAMIN OR AL Take by mouth. Active MULTI-VITAMIN OR AL Take by mouth. 0 Active Comment on above: Take by mouth. Multivitamin With Folic Acid (1 source) Start: 03-15-20 16 take 1 tablet by mouth once daily Multivitamin With Folic Acid Active 1 TABLET PO DAILY March 15, 2016 12:00am Multivitamin With Folic Acid 1 TABLET tablet (1 source) Start: 03-15-20 16 take 1 tablet by mouth once daily Multivitamin With Folic Acid 1 TABLET tablet Active 1 {tbl} PO DAILY March 15, 2016 1:00am Complies with drug therapy nitroglycerin 0.4 mg sublingual tablet (8 sources) Nitrate Vasodilator Start: 08-10-19 18 End: 09-12-19 Nitroglycerin (Nitrostat) 0.4 mg tablet, sublingual Active 0.4 mg SL every 5 to 15 minutes as needed for chest pain 07 10September 11, 2022 4:03pm Complies with drug therapy Start: 08-09-2017 End: 09-11-2022 Nitroglycerin (Nitrostat) 0. 4 mg tablet, sublingual Active 0.4 MG SL every 5 to 15 minutes September 11, 2022 3:03pm omeprazole 20 mg delayed release oral capsule (20 sources) Proton Pump Inhibitor Start: 11-05-2022 End: 01-21-2024 take 1 capsule by mouth once daily before breakfast omeprazole (PRILOSEC) 20 mg capsule Indications: Gastroesophageal reflux disease without esophagitis Take 1 capsule by mouth daily before breakfast. 1/2 hr before meal. 90 capsule 3 01/21/2024 Active Start: 03-15-2016 End: 07-30-2022 take 1 capsule by mouth once daily before breakfast omeprazole (PRILOSEC) 20 mg capsule Take 1 capsule by mouth daily before breakfast. 1/2 hr before meal. 90 capsule 0 08/01/2022 Active Comment on above: Take 1 capsule by mo uth daily before breakfast. 1/2 hr before meal. predniSONE 10 mg oral tablet (15 sources) Start: 08-16-2023 predniSONE (DELTASONE) 10 mg tablet Take 4 tabs daily for 3 days, then 2 tabs daily for 3 days, then 1 tab daily for 3 days with food. 21 tablet 08/16/2023 Active Completed/Discontinued Medications Medication Drug Class(es) Dates Sig (Normalized) Sig (Original) acetaminophen 325 mg / HYDROcodone bitartrate 5 mg oral tablet (4 sources) Opioid Agonist Start: 11-13-2019 End: 11-15-2019 Hydrocodone-Acetami nophen 1 TABLET tablet Discontinued 1 {tbl} PO EVERY 4 HOURS NEEDED as needed for Pain 14 2 0 November 13, 2019 November 14, 2019 12:00am November 15, 2019 12:03am Calculus of kidney Calculus of kidney Start: 11-13-2019 End: 11-15-2019 take 1 tablet by mouth every four hours as needed Hydrocodone-Acetaminophen Discontinued 1 TABLET PO EVERY 4 HOURS NEEDED 14 2 November 13, 2019 November 14, 2019 11:03pm Start: 03-22-2016 End: 08-13-2017 Hydrocodone-Acetaminophen 1 TABLET tablet Discontinued 1 {tbl} PO EVERY 6 HOURS NEEDED as needed for Pain 10 0 March 22, 2016 1:00am August 13, 2017 4:00pm Start: 03-22-2016 End: 08-13-2017 take 1 tablet by mouth every six hours as needed Hydrocodone-Acetaminophen Discontinued 1 TABLET PO EVERY 6 HOURS NEEDED March 22, 2016 12:00am August 13, 2017 3:00pm loratadine 10 mg oral tablet (5 sources) Start: 09-11-2022 End: 04-24-2024 take 1 tablet by mouth once daily as needed Loratadine (Claritin) 10 mg tablet Discontinued 10 mg PO DAILY as needed April 09, 2024 2:54pm April 24, 2024 5:30pm Start: 03-15-2016 End: 08-09-2017 take 1 tablet by mouth once daily Loratadine 10 MG tablet Discontinued 10 mg PO DAILY March 15, 2016 1:00am August 09, 2017 4:29pm ondansetron 4 mg disintegrating oral tablet (2 sources) Serotonin-3 Receptor Antagonist Start: 11-13-2019 End: 08-18-2020 take 1 tablet by mouth every eight hours as needed for nausea Ondansetron 4 MG tablet Discontinued 4 mg PO EVERY 8 HOURS NEEDED as needed for Nausea November 13, 2019 12:00am August 18, 2020 4:20pm simvastatin 40 mg oral tablet (20 sources) HMG-CoA Reductase Inhibitor Start: 03-15-2016 End: 01-30-2024 take 1 tablet by mouth at bedtime Simvastatin 40 mg tablet Discontinued 40 mg PO AT BEDTIME 90 3 2018 8:13am July 17, 2019 10:12am Comment on above: Take 1 tablet by mariaelena th daily at bedtime. Vitamin B Complex (B Complex-Vitamin B12) tablet (2 sources) Start: 08-09-2017 End: 08-20-2019 Vitamin B Complex (B Complex-Vitamin B12) tablet Discontinued 1 {tbl} PO daily August 09, 2017 12:00am August 20, 2019 4:11pm Start: 08-09-2017 End: 08-20-2019 take 1 tablet by mouth once daily Vitamin B Complex (B Complex-Vitamin B12) tablet Discontinued 1 TABLET PO daily August 08, 2017 11:00pm August 20, 2019 3:11pm Problems Active Problems Problem Classification Problem Date Documented Date Episodic/Chronic Asthma (20 sources) Asthma; Translations: [Unspecified asthma, uncomplicated] Onset: 07-04-2012 07-04-2012 Chronic Cardiac dysrhythmias (4 sources) Ventricular premature complex; Translations: [Ventricular premature depolarization] Onset: 05-28-2024 05-02-2024 Chronic Coronary atherosclerosis and other heart disease (20 sources) Coronary arteriosclerosis; Translations: [Atherosclerotic heart disease of eek coronary artery without angina pectoris] Onset: 02-27-1999 07-04-2012 Chronic Disorders of lipid metabolism (20 sources) Hyperlipidemia; Translations: [Hyperlipidemia, unspecified] Onset: 07-04-2012 07-04-2012 Chronic Esophageal disorders (20 sources) Gastroesophageal reflux disease; Translations: [Gastro-esophageal reflux disease without esophagitis] Onset: 07-04-2012 07-04-2012 Chronic Immunizations and screening for infectious disease (4 sources) Needs influenza immunization; Translations: [Encounter for immunization] Onset: 01-08-2025 Episodic Nutritional deficiencies (2 sources) Vitamin D deficiency; Translations: [Vitamin D deficiency, unspecified] Onset: 12-25-2024 12-23-2024 Chronic Osteoarthritis (2 sources) Osteoarthrosis of the carpometacarpal joint of the thumb; Translations: [Unilateral primary osteoarthritis of first carpometacarpal joint, left hand] Onset: 02-22-2025 Chronic Other and ill-defined heart disease (15 sources) Left ventricular hypertrophy; Translations: [Cardiomegaly] Onset: 02-12-2024 02-12-2024 Chronic Other and ill-defined heart disease (1 source) Cardiomegaly; Translations: [LVH (left ventricular hypertrophy)] Onset: 02-12-2024 Chronic Other bone disease and musculoskeletal deformities (10 sources) Segmental and somatic dysfunction; Translations: [Segmental and somatic dysfunction of lumbar region] 10-08-2022 Episodic Other bone disease and musculoskeletal deformities (1 source) Segmental and somatic dysfunction of pelvic region; Translations: [Segmental and somatic dysfunction of pelvic region] Onset: 02-09-2025 Episodic Other bone disease and musculoskeletal deformities (1 source) Segmental and somatic dysfunction of lumbar region; Translations: [Segmental and somatic dysfunction of lumbar region] Onset: 02-09-2025 Episodic Other bone disease and musculoskeletal deformities (1 source) Segmental and somatic dysfunction of cervical region; Translations: [Segmental and somatic dysfunction of cervical region] Onset: 02-09-2025 Episodic Other bone disease and musculoskeletal deformities (1 source) Segmental and somatic dysfunction of thoracic region; Translations: [Segmental and somatic dysfunction of thoracic region] Onset: 02-09-2025 Episodic Other connective tissue disease (1 source) Pain in right hand; Translations: [Bilateral hand pain] Onset: 02-22-2025 Episodic Other connective tissue disease (1 source) Pain in left hand; Translations: [Bilateral hand pain] Onset: 02-22-2025 Episodic Other connective tissue disease (1 source) Pain in right finger(s); Translations: [Chronic pain of both thumbs] Onset: 01-08-2025 Episodic Other connective tissue disease (1 source) Pain in left finger(s); Translations: [Chronic pain of both thumbs] Onset: 01-08-2025 Episodic Other lower respiratory disease (2 sources) Idiopathic pulmonary fibrosis; Translations: [Idiopathic pulmonary fibrosis] 08-09-2017 Chronic Other lower respiratory disease (1 source) Cough; Translations: [Acute cough] 08-16-2023 Episodic Other nervous system disorders (1 source) Other chronic pain; Translations: [Chronic pain of both thumbs] Onset: 01-08-2025 Chronic Other nutritional; endocrine; and metabolic disorders (20 sources) Obese class I; Translations: [Obesity, unspecified] Onset: 10-14-2018 10-14-2018 Chronic Other upper respiratory infections (1 source) Chronic sinusitis, unspecified; Translations: [Unspecified sinusitis (chronic)] 08-16-2023 Chronic Other upper respiratory infections (2 sources) Acute upper respiratory infection; Translations: [Acute upper respiratory infection, unspecified] Episodic Spondylosis; intervertebral disc disorders; other back problems (5 sources) Backache; Translations: [Dorsalgia, unspecified] Onset: 02-09-2025 10-08-2022 Episodic Past or Other Problems Problem Classification Problem Date Documented Da te Episodic/Chronic Abdominal hernia (20 sources) Umbilical hernia; Translations: [Umbilical hernia without obstruction or gangrene] Onset: 06-21-2015 06-21-2015 Episodic Coronary atherosclerosis and other heart disease (3 sources) Presence of coronary angioplasty implant and graft; Translations: [Percutaneous transluminal coronary angioplasty status] Onset: 02-27-1999 03-13-2023 Episodic Neoplasms of unspecified nature or uncertain behavior (20 sources) Skin lesion; Translations: [Neoplasm of unspecified behavior of bone, soft tissue, and skin] Onset: 08-21-2022 Episodic Other connective tissue disease (20 sources) Chronic pain of left upper limb; Translations: [Pain in left finger(s)] Onset: 01-19-2022 Episodic Other screening for suspected conditions (not mental disorders or infectious disease) (9 sources) Patient encounter status; Translations: [Encounter for screening for malignant neoplasm of colon] Onset: 10-14-2018 03-20-2023 Episodic Other skin disorders (20 sources) Actinic keratosis; Translations: [Actinic keratosis] Onset: 01-19-2022 Episodic Results Test Name Value Interpretation Reference Range Facility Chiropractic Reporton 2024 Chiropractic Report [facility] [address] [place] [address] OFFICE VISIT Date of Service: 02/09/25 MR#: [id number] Acct: [id number] Name: TEODORO RIZZO Rep #: [id number] 3 : 1960 Provider: DERICK Bass Age/Sex: 64/M Location: [facility] [place] Status: Signed Intake Vital Signs 01/18/25 09:46 Height 5 ft 5 in BP 146/84 H Intake Visit Reasons: BACK PAIN Chief Complaint: neck and low Back Pain Evaluation Specialist Required: No Accompanied by: Self Is patient in pain?: Yes (neck and low back ) Pain scale (1-10): 3 Allergies No Known Allergies Allergy (Verified 02/09/25 13:03) Medications ???Medication ???Instructions ???Recorded ???Confirmed ???Type ascorbic acid (vitamin C) 1,000 mg 1,000 mg PO DAILY 03/15/1602/09 History tablet aspirin 81 mg tablet,delayed 81 mg PO DAILY 03/15/16 02/09/25 H istory release multivitamin with folic acid 400 1 tab PO DAILY 03/15/16 02/09/25 H istory mcg tablet omeprazole 20 mg capsule,delayed 20 mg PO DAILY 03/15/16 02/09/25 H istory release albuterol sulfate 90 mcg/actuation 2 puff inhalation Q2H PRN PRN 02/09/25 History aerosol inhaler Asthma 30 days ##9 montelukast 10 mg tablet 10 mg PO QDAY 08/09/17 02/09/25 Hi story (Singulair) simvastatin 40 mg tablet 40 mg PO QHS #90 tabs 07/17/19 Rx nitroglycerin 0.4 mg sublingual 0.4 mg sublingual Q5-15M PRN chest 09/11/22 02/09/25 Rx tablet (Nitrostat) pain #25 tabs budesonide 180 mcg/actuation 2 inh inhalation BID 04/09/2401/14 History breath activated powder inhaler (Pulmicort Flexhaler) cholecalciferol (vitamin D3) 25 1,000 unit PO DAILY 04/24/2402/09 History mcg (1,000 unit) capsule (Vitamin D3) Have you fallen in the past year?: No PFSH Medical History Back pain Segmental and somatic dysfunction of thoracic region Obesity (BMI 30.0-34.9) 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) Asthma, moderate persistent 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 HLD (hyperlipidemia) Surgical History History of left heart catheterization (03/30/99) History of coronary artery stent placement (02/27/99) History of herniorrhaphy Family History Father CAD (coronary artery disease) Mother Breast cancer Social History Smoking Status: Never smoker alcohol intake: never substance use type: does not use caffeine: Yes Type: tea Number of servings: 1 what type of physical activity do you participate in: other seatbelt use: always do you feel safe at home: Yes HPI BACK PAIN Chief Complaint: neck, low back pain Visit Number: 2 Details: Teodoro is a 64 y/o male here for persistent neck and back pain. Moderate improvement after last chiropractic visit lasting for a few days. Reports left neck and left low back pain rated 3 out of 10 today. 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 He c/o low back and bilateral hip pain, left>right. He states he also experiences bilateral hip and quad numbness and tingling at times. Location: neck, low back/ hips Duration: frequent Aggravating or associated factors: walking, driving, ROM Relieving factors: chiro Pain Quality: aching, dull, radiating and other (numbness) Exam Musc General: Yes normal gait, joint tenderness and decreased range of motion; No normal posture or muscle weakness Cervical Spine: Yes loss of normal cervical lordosis, Yes cervical muscular tenderness left greater than right lower , Yes cervical spasm left greater than right lower trapezius and paracervical muscles and Yes misalignment misalignment: C5, C6 and C7 Thoracic/Lumber: No thoracic and lumbar spine normal to inspection (anterior head carriage), Yes paraspinal tenderness on the left greater than right (trap, lumbopelvic), Yes thoraco-lumbar spasm on the left greater than right (trap,QL, ITB) and Yes misalignment T1, T2, L2, L3, L4 and LIL Sacroiliac joints: on the left tender to palpation Office Procedures Procedures - Chiropractic Procedures Manipulation: Cervical C6, Lumbar L3, Thoracic T2 and Pelvis LIL Manipulation: 3-4 regions Electronic Stimulation: Yes Electrical Stimulation: Cervical (Left) 15 mins (22) mA and Lumbar 15 mins (22) mA Therapy Performed by:: Pam Braswell, Mechanical: Yes Hot and/or cold packs: Yes Patient Response: positive Assessment and Plan Assessment and Plan (1) Segmental and somatic dysfunction of thoracic region: Status: Acute (2) Segmental (more content not included)... Normal [facility] Chiropractic Reporton 2024 Chiropractic Report [facility] [address] [place] [id number] OFFICE VISIT Date of Service: 01/18/25 MR#: [id number] Acct: [id number] Name: TEODORO RIZZO Rep #: [id number] 3 : 1960 Provider: DERICK Bass Age/Sex: 64/M Location: [facility] [place] Status: Signed Intake Vital Signs 04/28/24 11:19 01/18/25 09:46 Height 5 ft 5 in 5 ft 5 in Weight: 197 lb BMI 32.8 BP 129/75 H 146/84 H Blood Pressure Location Lt brachial Position Sitting Respiration 18 Pulse 51 L Pulse Source Monitor Pulse Oximetry (%) 97 Intake Visit Reasons: REEVAL Chief Complaint: neck and low Back Pain Is patient in pain?: Yes (neck and low back ) Pain scale (1-10): 3 Allergies No Known Allergies Allergy (Verified 01/18/25 09:29) Medications ???Medication ???Instructions ???Recorded ???Confirmed ???Type ascorbic acid (vitamin C) 1,000 mg 1,000 mg PO DAILY 03/15/1601/18 History tablet aspirin 81 mg tablet,delayed 81 mg PO DAILY 03/15/16 01/18/25 H istory release multivitamin with folic acid 400 1 tab PO DAILY 03/15/16 01/18/25 H istory mcg tablet omeprazole 20 mg capsule,delayed 20 mg PO DAILY 03/15/16 01/18/25 H istory release albuterol sulfate 90 mcg/actuation 2 puff inhalation Q2H PRN PRN 01/18/25 History aerosol inhaler Asthma 30 days ##9 montelukast 10 mg tablet 10 mg PO QDAY 08/09/17 01/18/25 Hi story (Singulair) simvastatin 40 mg tablet 40 mg PO QHS #90 tabs 07/17/1910/07 Rx nitroglycerin 0.4 mg sublingual 0.4 mg sublingual Q5-15M PRN chest 09/11/22 01/18/25 Rx tablet (Nitrostat) pain #25 tabs budesonide 180 mcg/actuation 2 inh inhalation BID 04/09/2410/07 History breath activated powder inhaler (Pulmicort Flexhaler) cholecalciferol (vitamin D3) 25 1,000 unit PO DAILY 04/24/2401/18 History mcg (1,000 unit) capsule (Vitamin D3) Have you fallen in the past year?: No PFSH Medical History (Updated 01/18/25 @ 10:[address] 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 HLD (hyperlipidemia) Surgical History History of left heart catheterization (03/30/99) History of coronary artery stent placement (02/27/99) History of herniorrhaphy Family History Father CAD (coronary artery disease) Mother Breast cancer Social History Smoking Status: Never smoker alcohol intake: never substance use type: does not use caffeine: Yes Type: tea Number of servings: 1 what type of physical activity do you participate in: other seatbelt use: always do you feel safe at home: Yes HPI REEVAL Chief Complaint: neck and low back pain Visit Number: 1 Details: Teodoro is a 64 y/o male here for a re-evaluation of neck and back pain. Pt. has not been in for an adjustment for over 2 years. 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 He c/o low back and bilateral hip pain, left>right. He states he also experiences bilateral hip and quad numbness and tingling at times. He states he noticed the flare up in September after taking a long road trip to see his son in [place]. He was sitting the the car for long periods of time which he believes was the cause of his pain. He would like his hips checked for alignment. He also complains of L sided lower neck/upper back pain. He denies known injury.The pain has been persistent since the trip. He treats pain at time with Motrin as needed. He states chiropractic adjustments have been helpful in the past. Location: neck, low back/ hips Duration: frequent Aggravating or associated factors: walking, driving,ROM Relieving factors: none Pain Quality: aching, dull, radiating and other (numbness) Exam Musc General: Yes normal gait, joint tenderness and decreased range of motion; No normal posture or muscle weakness Cervical Spine: Yes loss of normal cervical lordosis, Yes cervical muscular tenderness left lower , Yes pain with cervical ROM (L sided pain) with lateral flexion to right, with lateral flexion to left, with rotation to left, with rotation to right, with anterior flexion and with extension, Yes cervical spasm left greater than right lower trapezius and paracervical muscles and Yes misalignment misalignment: C5, C6 and C7 Thoracic/Lumber: No thoracic and lumbar spine normal to inspection (anterior head carriage), Yes Lasegue's sign positive on the left, Yes pain with thoraco-lumbar ROM with forward f (more content not included)... [facility] Office Visit ([facility] ) TEODORO RIZZO ([id number]) 1960 M Date Time Provider Department 01/08/25 8:40 AM [facility] During your visit today, we recorded the following information about you: Temperature Pulse Respiration Blood pressure 97 degrees 60/minute 16/minute 140/86 Weight Height 90.3 kg 1.64 m Kal Vazquez DO 01/08/2025 9:27 AM Signed CC: Teodoro Rizzo is a 64 year old male who presents to the office for physical HPI: Overall he is doing well CAD, HTN, HPL, taking zocor medication as prescribed. BLOOD PRESSURE has been well controlled, no CP or dyspnea or dizziness/Lh. 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 Oh. 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 Hylton CAD (coronary artery disease) Dr. Oh Cat allergies GERD (gastroesophageal reflux disease) Hyperlipidemia Kidney stones Umbilical hernia without obstruction and without gangrene PAST SURGICAL HISTORY Procedure Laterality Date COLONOSCOPY FLX DX W/COLLJ SPEC WHEN PFRMD 08/28/2012 Colonoscopy ESOPHAGOGASTRODUODENOSCOPY TRANSORAL DIAGNOSTIC 08/28/2012 EGD LAP HERNIA REPAIR W/MESH 03/22/2016 ventral and umb LAPS REPAIR HERNIA EXCEPT INCAL/INGUN REDUCIBLE 03/22/2016 PAST SURGICAL HISTORY OF 1998 [facility] Social History: SOCIAL HISTORY[1] FAMILY HISTORY Problem Relation Age of Onset Hypertension Mother Lipids Mother Breast Cancer Mother Coronary Artery Disease Mother atrial fibrillation, 4v CABG age 76 Emphysema Father Coronary Artery Disease Father other (parkinsons's disease) Maternal Grandfather Colon Cancer Paternal Uncle Current Outpatient prescriptions: simvastatin (ZOCOR) 40 mg tablet Take 1 tablet by mouth daily at bedtime. omeprazole (PRILOSEC) 20 mg capsule Take 1 capsule by mouth daily before breakfast. 1/2 hr before meal. montelukast (SINGULAIR) 10 mg tablet Take 1 tablet by mouth daily at bedtime. budesonide (PULMICORT FLEXHALER) 180 mcg/actuation aepb Inhale 2 puffs as instructed two times a day. albuterol HFA (PROAIR HFA) 90 mcg/actuation inhaler Inhale 2 puffs as instructed every 4 hours as needed. predniSONE (DELTASONE) 10 mg tablet Take 4 tabs daily for 3 days, then 2 tabs daily for 3 days, then 1 tab daily for 3 days with food. MULTI-VITAMIN ORAL Take by mouth. ascorbic acid (VITAMIN C) 500 mg tablet Take 500 mg by mouth once daily. Aspirin 81 mg ORAL Tab Take 81 mg by mouth. Allergies: ALLERGIES No Known Allergies ROS: See HPI PE: 01/08/25 0826 BP: 140/86 Pulse: 60 Resp: 16 Temp: 36.1 ?C (97 ?F) TempSrc: Right Tympanic Weight: 90.3 kg (199 lb) Height: 164 cm (5' 4.57) Gen: AANDO, NAD, non-toxic appearing, Pleasant, cooperative HEENT: NT/AC, PERRLA, EOMs intact b/l, nares clear and patent b/l, pharynx without erythema, exudate or lesions. Uvula midline. MMM, EACs without erythema or debris. TMs pearly lo with intact landmarks b/l. Neck: supple, No cervical LAD, no thyromegaly, no carotid bruits CV: RRR, normal S1 and S2, no murmurs, no gallops, no rubs, Pulses 2+ and symmetric in UE and LE b/l Lungs: normal respiratory effort, CTA b/l, no wheezing or rhonchi or rales Abd: soft, NT, ND, +BS, no hepatosplenomegaly MS: pain bilateral carpal metacarpal joints Neuro: CN II-XII intact b/l, strength 5/5 b/l UE and LE, DTRs 2/4 UE and LE, sensation intact. Skin: warm, dry, intact ASSESSMENT/PLAN: 1. Well adult exam - ICD9: V70.0, ICD10: Z00.00 (primary diagnosis) - Counseled on healthy diet and regular exercise - Discussed need for and benefit of weight loss. BMI 33.56 kg/(m2) - Risks/benefits of prostate cancer screening discussed. screening PSA ordered and is normal 2. Hyperlipidemia, unspecified hyperlipidemia type - ICD9: 272.4, ICD10: E78.5 - Controlled - Continue current medications - Counseled on healthy diet and regular exercise - Discussed need for and benefit of weight loss. BMI 33.56 kg/(m2) - SIMVASTATIN 40 MG TABLET 3. Gastroesophageal reflux disease without esophagitis - ICD9: 530.81, ICD10: K21.9 - Discussed lifestyle modifications including losing weight, limiting caffeine, no meals three hours before sleep, and head of bed elevation - OMEPRAZOLE 20 MG CAPSULE,DELAYED RELEASE 4. Moderate persistent asthma without complication (HCC) - ICD9: 493.90, ICD10: J45.40 - Moderate persistent asthma stable - Continue current medications - Avoidance of triggers recommended - MONTELUKAST 10 MG TABLET 5. Need for influenza vaccination - ICD9: V04.81, ICD10: Z23 - INFLUENZA VACCINE (more content not included)... Normal [facility] 25(OH)D3 [facility] 25-hydroxyvitamin D3 [Mass/Vol] 108.0 ng/mL High 31.0-80.0 [facility] Comment on above: Order Comment: Speci men Type: BLOOD SPECIMEN Ordering Facility: [facility] Address: [facility] [place] [address] Result Comment: Clas sification of 25 [place] Vitamin D status: Deficiency/Insufficiency: < or = 30 ng/ml. Sufficiency/Optimal Levels: 31-80 ng/mL Toxicity: > 100 ng/mL. Test performed by chemiluminescent immunoassay. Performed By: #### 1 989-3 #### [facility] CLIA [id number] [address] [place] [address] [place] CBC W Auto Differential pane l (Bld)on 12-25-2024 Basophils (Bld) [#/Vol] 0.04 10*3/uL Normal <0.11 [facility] Comment on above: Order Comment: Speci men Type: BLOOD SPECIMEN Ordering Facility: [facility] Address: [address] [place] [address] Performed By: #### 5 7021-8 #### [facility] CLIA [id number] [address] [place] [address] [place] Basophils/100 WBC (Bld) 0.7 % Normal [facility] Comment on above: Order Comment: Speci men Type: BLOOD SPECIMEN Ordering Facility: [facility] Address: [address] [place] [address] Performed By: #### 5 7021-8 #### [facility] CLIA [id number] [address] [place] [address] [place] Differential cell count method Nom (Bld) Auto Normal [facility] Comment on above: Order Comment: Speci men Type: BLOOD SPECIMEN Ordering Facility: [facility] Address: [address] [place] [address] Performed By: #### 5 7021-8 #### [facility] CLIA [id number] [address] [place] [address] [place] Eosinophils (Bld) [#/Vol] 0.29 10*3/uL Normal <0.46 [facility] Comment on above: Order Comment: Speci men Type: BLOOD SPECIMEN Ordering Facility: [facility] Address: [address] [place] [address] Performed By: #### 5 7021-8 #### [facility] CLIA [id number] [address] [place] [address] [place] Eosinophils/100 WBC (Bld) 5.2 % Normal [facility] Comment on above: Order Comment: Speci men Type: BLOOD SPECIMEN Ordering Facility: [facility] Address: [address] [place] [address] Performed By: #### 5 7021-8 #### [facility] CLIA [id number] [address] [place] [address] [place] Erythrocyte distribution width (RBC) [Ratio] 13.1 % Normal 11.5-15.0 [facility] Comment on above: Order Comment: Speci men Type: BLOOD SPECIMEN Ordering Facility: [facility] Address: [address] [place] [address] Performed By: #### 5 7021-8 #### [facility] CLIA [id number] [address] [place] [address] [place] Hematocrit (Bld) [Volume fraction] 48.1 % Normal 39.0-51.0 [facility] Comment on above: Order Comment: Speci men Type: BLOOD SPECIMEN Ordering Facility: [facility] Address: [address] [place] [address] Performed By: #### 5 7021-8 #### [facility] CLIA [id number] [address] [place] [address] [place] Hemoglobin (Bld) [Mass/Vol] 15.5 g/dL Normal 13.0-17.0 [facility] Comment on above: Order Comment: Speci men Type: BLOOD SPECIMEN Ordering Facility: [facility] Address: [address] [place] [address] Performed By: #### 5 7021-8 #### [facility] CLIA [id number] [address] [place] [address] [place] Immature granulocytes (Bld) [#/Vol] 10*3/uL Normal <0.10 [facility] Comment on above: Order Comment: Speci men Type: BLOOD SPECIMEN Ordering Facility: [facility] Address: [address] [place] [address] Performed By: #### 5 7021-8 #### [facility] CLIA [id number] [address] [place] [address] [place] Immature granulocytes/100 WBC (Bld) 0.4 % Normal [facility] Comment on above: Order Comment: Speci men Type: BLOOD SPECIMEN Ordering Facility: [facility] Address: [address] [place] [address] Performed By: #### 5 7021-8 #### [facility] CLIA [id number] [address] [place] [address] [place] Lymphocytes (Bld) [#/Vol] 1.50 10*3/uL Normal 1.00-4.00 [facility] Comment on above: Order Comment: Speci men Type: BLOOD SPECIMEN Ordering Facility: [facility] Address: [address] [place] [address] Performed By: #### 5 7021-8 #### [facility] CLIA [id number] [address] [place] [address] [place] Lymphocytes/100 WBC (Bld) 27.1 % Normal [facility] Comment on above: Order Comment: Speci men Type: BLOOD SPECIMEN Ordering Facility: [facility] Address: [address] [place] [address] Performed By: #### 5 7021-8 #### [facility] IA [id number] [address] [place] [address] [place] MCH (RBC) [Entitic mass] 30.0 pg Normal 26.0-34.0 [facility] Comment on above: Order Comment: Speci men Type: BLOOD SPECIMEN Ordering Facility: [facility] Address: [address] [place] [address] Performed By: #### 5 7021-8 #### [facility] CLIA [id number] [address] [place] [address] [place] MCHC (RBC) [Mass/Vol] 32.2 g/dL Normal 30.5-36.0 [facility] Comment on above: Order Comment: Speci men Type: BLOOD SPECIMEN Ordering Facility: [facility] Address: [address] [place] [address] Performed By: #### 5 7021-8 #### [facility] CLIA [id number] [address] [place] [address] [place] MCV (RBC) [Entitic vol] 93.0 fL Normal 80.0-100.0 [facility] Comment on above: Order Comment: Speci men Type: BLOOD SPECIMEN Ordering Facility: [facility] Address: [address] [place] [address] Performed By: #### 5 7021-8 #### [facility] CLIA [id number] [address] [place] [address] [place] Monocytes (Bld) [#/Vol] 0.49 10*3/uL Normal <0.87 [facility] Comment on above: Order Comment: Speci men Type: BLOOD SPECIMEN Ordering Facility: [facility] Address: [address] [place] [address] Performed By: #### 5 7021-8 #### [facility] CLIA [id number] [address] [place] [address] [place] Monocytes/100 WBC (Bld) 8.9 % Normal [facility] Comment on above: Order Comment: Speci men Type: BLOOD SPECIMEN Ordering Facility: [facility] Address: [address] [place] [address] Performed By: #### 5 7021-8 #### [facility] CLIA [id number] [address] [place] [address] [place] Neutrophils (Bld) [#/Vol] 3.19 10*3/uL Normal 1.45-7.50 [facility] Comment on above: Order Comment: Speci men Type: BLOOD SPECIMEN Ordering Facility: [facility] Address: [address] [place] [address] Performed By: #### 5 7021-8 #### [facility] CLIA [id number] [address] [place] [address] [place] Neutrophils/100 WBC (Bld) 57.7 % Normal [facility] Comment on above: Order Comment: Speci men Type: BLOOD SPECIMEN Ordering Facility: [facility] Address: [address] [place] [address] Performed By: #### 5 7021-8 #### [facility] CLIA [id number] [address] [place] [address] [place] Nucleated RBC (Bld) [#/Vol] 10*3/uL Normal <0.01 [facility] Comment on above: Order Comment: Speci men Type: BLOOD SPECIMEN Ordering Facility: [facility] Address: [address] [place] [address] Performed By: #### 5 7021-8 #### [facility] CLIA [id number] [address] [place] [address] [place] Nucleated RBC/100 WBC (Bld) [Ratio] 0.0 /100 WBC Normal [facility] Comment on above: Order Comment: Speci men Type: BLOOD SPECIMEN Ordering Facility: [facility] Address: [address] [place] [address] Performed By: #### 5 7021-8 #### [facility] CLIA [id number] [address] [place] [address] [place] Platelet mean volume (Bld) [Entitic vol] 9.9 fL Normal 9.0-12.7 [facility] Comment on above: Order Comment: Speci men Type: BLOOD SPECIMEN Ordering Facility: [facility] Address: [address] [place] [address] Performed By: #### 5 7021-8 #### [facility] CLIA [id number] [address] [id number] [address] [place] Platelets (Bld) [#/Vol] 233 10*3/uL Normal 150-400 [facility] Comment on above: Order Comment: Speci men Type: BLOOD SPECIMEN Ordering Facility: [facility] Address: [address] [place] [address] Performed By: #### 5 7021-8 #### [facility] CLIA [id number] [address] [place] [address] [place] RBC (Bld) [#/Vol] 5.17 10*6/uL Normal 4.20-6.00 [facility] Comment on above: Order Comment: Speci men Type: BLOOD SPECIMEN Ordering Facility: [facility] Address: [address] [place] [address] Performed By: #### 5 7021-8 #### [facility] CLIA [id number] [address] [place] [address] [place] WBC (Bld) [#/Vol] 5.53 10*3/uL Normal 3.70-11.00 [facility] Comment on above: Order Comment: Speci men Type: BLOOD SPECIMEN Ordering Facility: [facility] Address: [address] [place] [address] Performed By: #### 5 7021-8 #### [facility] CLIA [id number] [address] [place] [address] [place] Comprehensive metabolic 2000 panelon 12-25-2024 Albumin [Mass/Vol] 4.2 g/dL Normal 3.9-4.9 [facility] Comment on above: Order Comment: Speci men Type: BLOOD SPECIMEN Ordering Facility: [facility] Address: [address] [place] [address] Performed By: #### 2 132-9, 39286-6, 3016-3, 38558-2 #### [facility] CLIA [id number] [address] [place] [address] [place] ALP [Catalytic activity/Vol] 75 U/L Normal 38-113 [facility] Comment on above: Order Comment: Speci men Type: BLOOD SPECIMEN Ordering Facility: [facility] Address: [address] [place] [address] Performed By: #### 2 132-9, 69028-6, 6-3, 00119-6 #### [facility] CLIA [id number] [address] [place] [address] [place] ALT [Catalytic activity/Vol] 28 U/L Normal 10-54 [facility] Comment on above: Order Comment: Speci men Type: BLOOD SPECIMEN Ordering Facility: [facility] Address: [address] [place] [address] Performed By: #### 2 132-9, 17121-5, 3015-3, 99782-5 #### [facility] CLIA [id number] [address] [place] [address] [place] Anion gap [Moles/Vol] 12 mmol/L Normal 8-15 [facility] Comment on above: Order Comment: Speci men Type: BLOOD SPECIMEN Ordering Facility: [facility] Address: [address] [place] [address] Performed By: #### 2 132-9, 54319-6, 3015-3, 86361-2 #### [facility] CLIA [id number] [address] [place] [address] [place] AST [Catalytic activity/Vol] 28 U/L Normal 14-40 [facility] Comment on above: Order Comment: Speci men Type: BLOOD SPECIMEN Ordering Facility: [facility] Address: [address] [place] [address] Performed By: #### 2 132-9, 90721-3, 3015-3, 26324-3 #### [facility] CLIA [id number] [address] [place], [place] [address] [place] Bilirubin [Mass/Vol] 0.8 mg/dL Normal 0.2-1.3 [facility] Comment on above: Order Comment: Speci men Type: BLOOD SPECIMEN Ordering Facility: [facility] Address: [address] [place] [address] Performed By: #### 2 132-9, 56801-7, 3015-3, 85272-9 #### [facility] CLIA [id number] [address] [place] [address] [place] Calcium [Mass/Vol] 9.5 mg/dL Normal 8.5-10.2 [facility] Comment on above: Order Comment: Speci men Type: BLOOD SPECIMEN Ordering Facility: [facility] Address: [address] [place] [address] Performed By: #### 2 132-9, 90380-4, 3015-3, 00719-0 #### [facility] CLIA [id number] [address] [place], [place] [address] [place] Chloride [Moles/Vol] 106 mmol/L Normal 98-107 [facility] Comment on above: Order Comment: Speci men Type: BLOOD SPECIMEN Ordering Facility: [facility] Address: [address] [place], [place] [address] Performed By: #### 2 132-9, 54924-1, 3015-3, 12507-0 #### [facility] CLIA [id number] [address] [place], [place] [address] [place] CO2 [Moles/Vol] 26 mmol/L Normal 22-30 [facility] Comment on above: Order Comment: Speci men Type: BLOOD SPECIMEN Ordering Facility: [facility] Address: [address] [place] [address] Performed By: #### 2 132-9, 55297-1, 3015-3, 84702-7 #### [facility] CLIA [id number] [address] [place] [address] [place] Creatinine [Mass/Vol] 0.89 mg/dL Normal 0.73-1.22 [facility] Comment on above: Order Comment: Speci men Type: BLOOD SPECIMEN Ordering Facility: [facility] Address: [address] [place] [address] Performed By: #### 2 132-9, 43308-8, 3016-3, 57337-5 #### [facility] CLIA [id number] [address] [place] [address] [place] eGFRcr SerPlBld CKD-EPI 2020 95 mL/min/1.73m??? Normal >=60 [facility] Comment on above: Order Comment: Miguel Angel casper Type: BLOOD SPECIMEN Ordering Facility: [facility] Address: [address] [place] [address] Result Comment: Ivy mated Glomerular Filtration Rate (eGFR) is calculated using the 2020 CKD-EPI creatinine equation. This equation utilizes serum creatinine, sex, and age as parameters. The creatinine assay has traceable calibration to isotope dilution-mass spectrometry. Refer to KDIGO guidelines for clinical interpretation. In patients with unstable renal function, e.g. those with acute kidney injury, the eGFR may not accurately reflect actual GFR. Performed By: #### 2 132-9, 31402-5, 3016-3, 36426-8 #### [facility] CLIA [id number] [address] [place] [address] [place] Glucose [Mass/Vol] 84 mg/dL Normal 74-99 [facility] Comment on above: Order Comment: Miguel Angel casper Type: BLOOD SPECIMEN Ordering Facility: [facility] Address: [address] [place] [address] Result Comment: The [place] Diabetes Association (ADA) provides guidance for cutoff values for fasting glucose and random glucose. The ADA defines fasting as no caloric intake for at least 8 hours. Fasting plasma glucose results between 100 to 125 mg/dL indicate increased risk for diabetes (prediabetes). Fasting plasma glucose results greater than or equal to 126 mg/dL meet the criteria for diagnosis of diabetes. In the absence of unequivocal hyperglycemia, results should be confirmed by repeat testing. In a patient with classic symptoms of hyperglycemia or hyperglycemic crisis, random plasma glucose results greater than or equal to 200 mg/dL meet the criteria for diagnosis of diabetes. Reference: Standards of Medical Care in Diabetes 2016, [place] Diabetes Association. Diabetes Care. 2016.39(Suppl 1). Performed By: #### 2 132-9, 24008-2, 3016-3, 26151-9 #### [facility] CLIA [id number] [address] [place], [place] [address] [place] Potassium [Moles/Vol] 4.4 mmol/L Normal 3.7-5.1 [facility] Comment on above: Order Comment: Speci men Type: BLOOD SPECIMEN Ordering Facility: [facility] Address: [address] [place] [address] Performed By: #### 2 132-9, 68515-4, 6-3, 03449-5 #### [facility] CLIA [id number] [address] [place] [address] [place] Protein [Mass/Vol] 6.7 g/dL Normal 6.3-8.0 [facility] Comment on above: Order Comment: Speci men Type: BLOOD SPECIMEN Ordering Facility: [facility] Address: [address] [place] [address] Performed By: #### 2 132-9, 93104-2, 3015-3, 80889-6 #### [facility] CLIA [id number] [address] [place], [place] [address] [place] Sodium [Moles/Vol] 144 mmol/L Normal 136-144 [facility] Comment on above: Order Comment: Speci men Type: BLOOD SPECIMEN Ordering Facility: [facility] Address: [address] [place] [address] Performed By: #### 2 132-9, 53941-9, 6-3, 32221-3 #### [facility] CLIA [id number] [address] [place], [place] [address] [place] Urea nitrogen [Mass/Vol] 12 mg/dL Normal 9-24 [facility] Comment on above: Order Comment: Speci men Type: BLOOD SPECIMEN Ordering Facility: [facility] Address: [address] [place] [address] Performed By: #### 2 132-9, 20516-3, 3016-3, 46536-2 #### [facility] CLIA [id number] [address] [place] [address] [place] [facility] [place] HbA1c (Bld)on 12-25-2024 Average glucose Estimated from glycated hemoglobin (Bld) [Mass/Vol] 103 mg/dL Normal [facility] Comment on above: Order Comment: Specdavid men Type: BLOOD SPECIMEN Ordering Facility: [facility] Address: [address] [place] [address] Result Comment: eAG: (Estimated average glucose) is a calculated value from HgbA1c and is independent sales representative of the average blood glucose level in the last 2-3 month period. Performed By: #### 5 5454-3 #### [facility] CLIA [id number] [address] [place] [address] [place] HbA1c (Bld) [Mass fraction] 5.2 % Normal 4.3-5.6 [facility] Comment on above: Order Comment: Miguel Angel casper Type: BLOOD SPECIMEN Ordering Facility: [facility] Address: [address] [place] [address] Result Comment: Amer ican Diabetes Association guidelines indicate that patients with HgbA1c in the range 5.7-6.4% are at increased risk for development of diabetes, and intervention by lifestyle modification may be beneficial. HgbA1c greater or equal to 6.5% is considered diagnostic of diabetes. Performed By: #### 5 5454-3 #### [facility] CLIA [id number] [address] [place] [address] [place] Lipid 1996 panelon Cholesterol [Mass/Vol] 150 mg/dL Normal <200 [facility] Comment on above: Order Comment: Miguel Angel casper Type: BLOOD SPECIMEN Ordering Facility: [facility] Address: [address] [place] [address] Result Comment: <200 mg/dL, Desirable 200-239 mg/dL, Borderline high >239 mg/dL, High Performed By: #### 2 132-9, 07533-4, 3016-3, 35524-6 #### [facility] CLIA [id number] [address] [place] [address] [place] Cholesterol in HDL [Mass/Vol] 47 mg/dL Normal >39 [facility] Comment on above: Order Comment: Speci men Type: BLOOD SPECIMEN Ordering Facility: [facility] Address: [address] [place] [address] Result Comment: 40-5 9 mg/dL, Acceptable >59 mg/dL, High: Negative risk factor for coronary heart disease <40 mg/dL, Low: Positive risk factor for coronary heart disease Performed By: #### 2 132-9, 95929-4, 6-3, 58345-4 #### [facility] CLIA [id number] [address] [place] [address] [place] Cholesterol in LDL [Mass/Vol] 83 mg/dL Normal <100 [facility] Comment on above: Order Comment: Melindai men Type: BLOOD SPECIMEN Ordering Facility: [facility] Address: [address] [place] [address] Result Comment: <100 mg/dL, Optimal 100-129 mg/dL, Near optimal/above optimal 130-159 mg/dL, Borderline high 160-189 mg/dL, High >189 mg/dL, Very high Secondary prevention optimal LDL Cholesterol levels are recommended to be <70 mg/dL LDL cholesterol is calculated using the Rodgers-NIH equation. Performed By: #### 2 132-9, 67272-4, 6-3, 03710-5 #### [facility] CLIA [id number] [address] [place] [address] [place] Cholesterol in LDL/Cholesterol in HDL [Mass ratio] 1.77 {ratio} Normal <2.54 [facility] Comment on above: Order Comment: Melindai men Type: BLOOD SPECIMEN Ordering Facility: [facility] Address: [address] [place] [address] Result Comment: Shereen peres: 1. National Cholesterol Education Program ATP III Guideline At-A-Glance Quick Desk Reference: National Heart, Lung, and Blood Rogers. National Institutes of Health. 2001: NIH Publication No. 01-3305. 2. An International Atherosclerosis Society position paper: global recommendations for the management of dyslipidemia: executive summary, Atherosclerosis. 2014: 232(2):410-413. Performed By: #### 2 132-9, 86412-5, 3016-3, 33574-1 #### [facility] CLIA [id number] [address] [place] [address] [place] Cholesterol in VLDL [Mass/Vol] 17 mg/dL Normal <30 [facility] Comment on above: Order Comment: Miguel Angel casper Type: BLOOD SPECIMEN Ordering Facility: [facility] Address: [address] [place] [address] Performed By: #### 2 132-9, 89968-4, 6-3, 75551-0 #### [facility] CLIA [id number] [address] [place] [address] [place] Cholesterol non HDL [Mass/Vol] 103 mg/dL Normal <130 [facility] Comment on above: Order Comment: Miguel Angel casper Type: BLOOD SPECIMEN Ordering Facility: [facility] Address: [address] [place] [address] Result Comment: <130 mg/dL, Optimal 130-159 mg/dL, Near optimal/above optimal 160-189 mg/dL, Borderline high 190-219 mg/dL, High >219 mg/dL, Very high Secondary prevention optimal non HDL Cholesterol levels are recommended to be <100 mg/dL Performed By: #### 2 132-9, 60131-8, 3016-3, 99268-5 #### [facility] CLIA [id number] [address] [place] [address] [place] Cholesterol.total/C holesterol in HDL [Mass ratio] 3.19 {ratio} Normal <5.10 [facility] Comment on above: Order Comment: Miguel Angel casper Type: BLOOD SPECIMEN Ordering Facility: [facility] Address: [address] [place] [address] Performed By: #### 2 132-9, 12945-2, 3016-3, 86416-6 #### [facility] CLIA [id number] [address] [place] [address] [place] FASTING TIME 12 hrs Normal [facility] Comment on above: Order Comment: Speci men Type: BLOOD SPECIMEN Ordering Facility: [facility] Address: [address] [place] [address] Performed By: #### 2 132-9, 44553-3, 3016-3, 97312-7 #### [facility] CLIA [id number] [address] [place] [address] [place] Triglyceride [Mass/Vol] 107 mg/dL Normal <150 [facility] Comment on above: Order Comment: Speci men Type: BLOOD SPECIMEN Ordering Facility: [facility] Address: [address] [place] [address] Result Comment: <150 mg/dL, Normal 150-199 mg/dL, Borderline high 200-499 mg/dL, High >499 mg/dL, Very high Performed By: #### 2 132-9, 76152-2, 3016-3, 72053-0 #### [facility] CLIA [id number] [address] [place] [address] [place] PSA/PROSTATE SPECIFIC ANTIGE N SCREENINGon 12-25-2024 Prostate specific Ag [Mass/Vol] 0.95 ng/mL Normal <2.60 [facility] Comment on above: Order Comment: Speci men Type: BLOOD SPECIMEN Ordering Facility: [facility] Address: [address] [place] [address] Result Comment: Tota l PSA test methodology used is the Electrochemiluminescence Immunoassay by [employer]. Total PSA values by differing methodologies cannot be interchanged. Performed By: #### P SAS1 #### [facility] CLIA [id number] [address] [place] [address] [place] TSH SerPl-aCncon 12-25-2024 TSH Qn 1.970 m[IU]/L Normal 0.270-4.200 [facility] Comment on above: Order Comment: Speci men Type: BLOOD SPECIMEN Ordering Facility: [facility] Address: [address] [place] [address] Performed By: #### 2 132-9, 33262-3, 3016-3, 38560-8 #### [facility] CLIA [id number] [address] [place] [address] [place] Urinalysis complete panel (U )on 12-25-2024 Bacteria LM.HPF (Urine sed) [#/Area] Negative Normal Negative [facility] Comment on above: Order Comment: Speci men Type: URINE SPECIMEN Ordering Facility: [facility] Address: [address] [place] [address] Performed By: #### 2 4356-8 #### [facility] CLIA [id number] [address] [place] [address] [place] Bilirubin Ql (U) Negative Normal Negative [facility] Comment on above: Order Comment: Speci men Type: URINE SPECIMEN Ordering Facility: [facility] Address: [address] [place] [address] Performed By: #### 2 4356-8 #### [facility] CLIA [id number] [address] [place] [address] [place] CALCIUM OXALATE CRYSTALS (UA) Few Abnormal None Seen [facility] Comment on above: Order Comment: Speci men Type: URINE SPECIMEN Ordering Facility: [facility] Address: [address] [place] [address] Performed By: #### 2 4356-8 #### [facility] CLIA [id number] [address] [place] [address] [place] Clarity (Unsp spec) Clear Normal Clear [facility] Comment on above: Order Comment: Speci men Type: URINE SPECIMEN Ordering Facility: [facility] Address: [address] [place] [address] Performed By: #### 2 4356-8 #### [facility] CLIA [id number] [address] [place] [address] [place] [facility] Color (U) Yellow Normal Yellow [facility] Comment on above: Order Comment: Speci men Type: URINE SPECIMEN Ordering Facility: [facility] Address: [address] [place] [address] Performed By: #### 2 4356-8 #### [facility] CLIA [id number] [address] [place] [address] [place] Epithelial cells LM.HPF (Urine sed) [#/Area] None Seen Normal [facility] Comment on above: Order Comment: Speci men Type: URINE SPECIMEN Ordering Facility: [facility] Address: [address] [place] [address] Performed By: #### 2 4356-8 #### [facility] CLIA [id number] [address] [place] [address] [place] Glucose Test strip (U) [Mass/Vol] Negative Normal Negative [facility] Comment on above: Order Comment: Speci men Type: URINE SPECIMEN Ordering Facility: [facility] Address: [address] [place] [address] Performed By: #### 2 4356-8 #### [facility] CLIA [id number] [address] [place] [address] [place] Hemoglobin Ql (U) Negative Normal Negative [facility] Comment on above: Order Comment: Speci men Type: URINE SPECIMEN Ordering Facility: [facility] Address: [address] [place] [address] Performed By: #### 2 4356-8 #### [facility] CLIA [id number] [address] [place], [place] [address] [place] Hyaline casts (Urine sed) [#/Area] 0 /[LPF] Normal 0 /LPF [facility] Comment on above: Order Comment: Speci men Type: URINE SPECIMEN Ordering Facility: [facility] Address: [address] [place], [place] [address] Performed By: #### 2 4356-8 #### [facility] CLIA [id number] [address] [place], [place] [address] [place] Ketones Ql (U) Negative Normal Negative [facility] Comment on above: Order Comment: Speci men Type: URINE SPECIMEN Ordering Facility: [facility] Address: [address] [place] [address] Performed By: #### 2 4356-8 #### [facility] CLIA [id number] [address] [place] [address] [place] Leukocyte esterase Test strip Ql (U) Negative Normal Negative [facility] Comment on above: Order Comment: Speci men Type: URINE SPECIMEN Ordering Facility: [facility] Address: [address] [place] [address] Performed By: #### 2 4356-8 #### [facility] CLIA [id number] [address] [place] [address] [place] Nitrite Ql (U) Negative Normal Negative [facility] Comment on above: Order Comment: Speci men Type: URINE SPECIMEN Ordering Facility: [facility] Address: [address] [place], [place] [address] Performed By: #### 2 4356-8 #### [facility] CLIA [id number] [address] [place], [place] [address] [place] pH (U) 6.0 [pH] Normal 5.0-8.0 [facility] Comment on above: Order Comment: Speci men Type: URINE SPECIMEN Ordering Facility: [facility] Address: [address] [place], [place] [address] Performed By: #### 2 4356-8 #### [facility] CLIA [id number] [address] [place] [address] [place] Protein (U) [Mass/Vol] Negative Normal Negative [facility] Comment on above: Order Comment: Speci men Type: URINE SPECIMEN Ordering Facility: [facility] Address: [address] [place] [address] Performed By: #### 2 4356-8 #### [facility] CLIA [id number] [address] [place] [address] [place] RBC LM.HPF (Urine sed) [#/Area] 0-2 /HPF Normal 0-2 /HPF [facility] Comment on above: Order Comment: Speci men Type: URINE SPECIMEN Ordering Facility: [facility] Address: [address] [place] [address] Performed By: #### 2 4356-8 #### [facility] CLIA [id number] [address] [place] [address] [place] Specific gravity (U) [Rel density] 1.021 Normal 1.005-1.030 [facility] Comment on above: Order Comment: Speci men Type: URINE SPECIMEN Ordering Facility: [facility] Address: [address] [place] [address] Performed By: #### 2 4356-8 #### [facility] CLIA [id number] [address] [place] [address] [place] Urobilinogen Ql (U) 0.2 EU/dL Normal 0.2-1.0 EU/dL [facility] Comment on above: Order Comment: Speci men Type: URINE SPECIMEN Ordering Facility: [facility] Address: [address] [place] [address] Performed By: #### 2 4356-8 #### [facility] CLIA [id number] [address] [place] [address] [place] WBC LM.HPF (Urine sed) [#/Area] 0-5 /HPF Normal 0-5 /HPF [facility] Comment on above: Order Comment: Speci men Type: URINE SPECIMEN Ordering Facility: [facility] Address: [address] [place] [address] Performed By: #### 2 4356-8 #### [facility] CLIA [id number] [address] [place] [address] [place] Vit B12 SerPl-mCncon 025 Cobalamin (Vitamin B12) [Mass/Vol] 693 pg/mL Normal 232-1245 [facility] Comment on above: Order Comment: Speci men Type: BLOOD SPECIMEN Ordering Facility: [facility] Address: [address] [place] [address] Performed By: #### 2 132-9, 68169-3, 3016-3, 18880-6 #### [facility] CLIA [id number] [address] [place] [address] [place] CNPRoselyn 12-23-2024 [facility] Telephone (FAMPWS) TEODORO RIZZO ([id number]) 1960 M Date Time Provider Department 12/23/24 [facility] During your visit today, we recorded the following information about you: Anneliese Vela MA 12/23/2024 11:42 AM Signed Pt sends [employer] message below: Will you be ordering labs before my upcoming wellness physical(01/08) as has been customary in the past? Asking so that I am aware to be on the lookout for the order...Thank you! Kal Vazquez DO 12/23/2024 7:48 PM Signed Please let him know that labs and UA are ordered fasting DO Peggy Joyce Susan LPN 12/23/2024 7:57 PM Signed Pt. informed via My Chart. Allergies As of Date: 12/23/2024 (No Known Allergies) Date Reviewed: 02/12/2024 Reviewed by: Anna Rogers LPN - Fully Assessed Primary Visit Diagnosis:Well adult exam [Z00.00] Other Visit Diagnoses:LVH (left ventricular hypertrophy) [I51.7] Hyperlipidemia, unspecified hyperlipidemia type [E78.5] Coronary artery disease due to lipid rich plaque [I25.10, I25.83] Vitamin D deficiency [E55.9] Order(s):VITAMIN D 25 HYDROXY [SQVITD] Order #: [id number] FUTURE COMPLETE BLOOD COUNT AND DIFFERENTIAL [SQCBCDIF] Order #: [id number] FUTURE COMPREHENSIVE METABOLIC PANEL [SQCMP] Order #: [id number] FUTURE LIPID PANEL, FASTING [SQLIPB] Order #: [id number] FUTURE HEMOGLOBIN A1C [ULQUR0T] Order #: [id number] FUTURE THYROID STIMULATING HORMONE [SQTSH] Order #: [id number] FUTURE PSA/PROSTATE SPECIFIC ANTIGEN SCREENING [SQPSAS1] Order #: [id number] FUTURE URINALYSIS, WITH MICROSCOPIC [SQUAWMIC] Order #: [id number] FUTURE VITAMIN B12 [SQB12] Order #: [id number] FUTURE Prescriptions as of 12/23/2024 - budesonide (PULMICORT FLEXHALER) 180 mcg/actuation aepb Inhale 2 puffs as instructed two times a day. - albuterol HFA (PROAIR HFA) 90 mcg/actuation inhaler Inhale 2 puffs as instructed every 4 hours as needed. - montelukast (SINGULAIR) 10 mg tablet Take 1 tablet by mouth daily at bedtime. - simvastatin (ZOCOR) 40 mg tablet Take 1 tablet by mouth daily at bedtime. - omeprazole (PRILOSEC) 20 mg capsule Take 1 capsule by mouth daily before breakfast. 1/2 hr before meal. - predniSONE (DELTASONE) 10 mg tablet Take 4 tabs daily for 3 days, then 2 tabs daily for 3 days, then 1 tab daily for 3 days with food. - MULTI-VITAMIN ORAL Take by mouth. - ascorbic acid (VITAMIN C) 500 mg tablet Take 500 mg by mouth once daily. - Aspirin 81 mg ORAL Tab Take 81 mg by mouth. Problem List As Of Date 12/23/2024 Noted Resolved CAD (coronary artery disease) [I25.10] 07/04/2012 Hyperlipidemia [E78.5] 07/04/2012 Asthma [J45.909] 07/04/2012 GERD (gastroesophageal reflux disease) [K21.9] 07/04/2012 Umbilical hernia without obstruction and withou*06/21/2015 Coronary artery disease due to lipid rich plaqu*10/14/2018 Well adult exam [Z00.00] 10/14/2018 Gastroesophageal reflux disease without esophag*10/14/2018 Obesity, Class I, BMI 30-34.9 [E66.811] 10/14/2018 Actinic keratosis [L57.0] 01/19/2022 Chronic pain of left thumb [M79.645, G89.29] 01/19/2022 Atypical squamoproliferative skin lesion [D49.2]08/21/2022 LVH (left ventricular hypertrophy) [I51.7] 02/12/2024 Encounter Status:Closed by ANNA ROGERS LPN on 12/23/24 [facility] TEODORO RIZZO ([id number]) 1960 M Date Time Provider Department 09/25/24 [facility] During your visit today, we recorded the following information about you: Kal Vazquez DO 09/25/2024 10:06 AM Signed rx sent for pulrenny Vazquez DO Allergies As of Date: 09/25/2024 (No Known Allergies) Date Reviewed: 02/12/2024 Reviewed by: Anna Rogers LPN - Fully Assessed Prescriptions as of 10/08/2024 - budesonide (PULMICORT FLEXHALER) 180 mcg/actuation aepb Inhale 2 puffs as instructed two times a day. - albuterol HFA (PROAIR HFA) 90 mcg/actuation inhaler Inhale 2 puffs as instructed every 4 hours as needed. - montelukast (SINGULAIR) 10 mg tablet Take 1 tablet by mouth daily at bedtime. - simvastatin (ZOCOR) 40 mg tablet Take 1 tablet by mouth daily at bedtime. - omeprazole (PRILOSEC) 20 mg capsule Take 1 capsule by mouth daily before breakfast. 1/2 hr before meal. - predniSONE (DELTASONE) 10 mg tablet Take 4 tabs daily for 3 days, then 2 tabs daily for 3 days, then 1 tab daily for 3 days with food. - MULTI-VITAMIN ORAL Take by mouth. - ascorbic acid (VITAMIN C) 500 mg tablet Take 500 mg by mouth once daily. - Aspirin 81 mg ORAL Tab Take 81 mg by mouth. Problem List As Of Date 09/25/2024 Noted Resolved CAD (coronary artery disease) [I25.10] 07/04/2012 Hyperlipidemia [E78.5] 07/04/2012 Asthma [J45.909] 07/04/2012 GERD (gastroesophageal reflux disease) [K21.9] 07/04/2012 Umbilical hernia without obstruction and withou*06/21/2015 Coronary artery disease due to lipid rich plaqu*10/14/2018 Well adult exam [Z00.00] 10/14/2018 Gastroesophageal reflux disease without esophag*10/14/2018 Obesity, Class I, BMI 30-34.9 [E66.811] 10/14/2018 Actinic keratosis [L57.0] 01/19/2022 Chronic pain of left thumb [M79.645, G89.29] 01/19/2022 Atypical squamoproliferative skin lesion [D49.2]08/21/2022 LVH (left ventricular hypertrophy) [I51.7] 02/12/2024 Encounter Status:Closed by ORQUIDEA LITTLE on 10/08/24 [facility] Stress Reporton 05-07-2024 Stress Report [facility] [address] [place] [address] MR#: [id number] Acct: [id number] Name: TEODORO RIZZO Rep #: [id number] : 1960 63 From: García Oh MD Primary Care: Dr. Kal Vazquez DO Status: REG CLI Referring Dr: Elena Craft Sex: M C Stress Test Report Exercise myocardial perfusion stress test. 63-year-old man with a history of premature ventricular complexes. Stress protocol: Resting EKG demonstrates sinus bradycardia with a rate of 54 bpm resting blood pressure is 130/90 mmHg. The patient exercised according to the regular Kit protocol for a total duration of 7 minutes and 30 seconds attaining a maximum heart rate of 133 bpm which was 85% of maximum predicted heart rate; the maximum workload was 10.1 metabolic equivalents. At rest there were no ST or T wave changes noted to suggest ischemia and at peak exercise upsloping ST changes only were noted which did not meet the criteria for ischemia. No clinical angina was noted the test was terminated due to the target heart rate being achieved/fatigue. The peak blood pressure was 174/94 mmHg. Rate- pressure product was 18,000. Myocardial perfusion protocol. 10.9 mCi of technetium 99m sestamibi was injected at rest. The patient exercised according to regular Kit protocol for total duration of 7-1/2 minutes and at peak exercise 34.7 mCi of technetium 99m sestamibi was injected stress images were obtained stress and rest images were reconstructed in comparing the short axis vertical long and horizontal long axis. Gated images were also obtained. Perfusion SPECT analysis: Review of the stress images demonstrate normal uptake of tracer noted in all areas of the myocardium. The resting images similarly demonstrate normal uptake of tracer noted in all areas of the myocardium. No areas of reversibility are noted to suggest ischemia no previous infarct was noted. Gated SPECT analysis: The gated ejection fraction is 58%. Conclusion: Normal exercise myocardial perfusion stress test at a high workload Preserved ejection fraction. 05/07/24 1738 Date García Oh MD CC: Dr. 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 [place] [address] OFFICE VISIT Date of Service: 04/28/24 MR#: [id number] Acct: [id number] Name: TEODORO RIZZO Rep #: [id number] : 1960 Provider: ANTONIO Morales Age/Sex: 63/M Location: [facility] Status: Signed HPI HPI History of Present Illness Details: TEODORO RIZZO, is a 63 y/o gentleman who presents here for a cardiovascular follow-up visit. He has a history of coronary artery disease status post angioplasty and stenting of the right coronary artery remotely in 1988 as well as a history of hyperlipidemia.??? 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 Patient was not symptomatic with this. He did have a stress test in 2022 that was negative for ischemia. This was a pharmacologic stress test. He had an echocardiogram which demonstrated an EF of 60% and February 2024. From a cardiac standpoint patient does not have any symptoms. He is not aware of his PVCs. Intake Vital Signs 04/24/24 16:22 04/28/24 11:19 Height 5 ft 5 in 5 ft 5 in Weight: 197 lb BMI 32.8 BP 129/75 H Blood Pressure Location Lt brachial Position Sitting Respiration 18 Pulse 51 L Pulse Source Monitor Pulse Oximetry (%) 97 Intake Visit Reasons: S/P [facility] 04/27 (SEE NOTE) Evaluation Specialist Required: No Is patient in pain?: No Allergies No Known Allergies Allergy (Verified 04/28/24 11:19) Medications ???Medication ???Instructions ???Recorded ???Confirmed ???Type ascorbic acid (vitamin C) 1,000 mg 1,000 mg PO DAILY 03/15/16 04/28/24 History tablet aspirin 81 mg tablet,delayed 81 mg PO DAILY 03/15/16 04/28/24 History release multivitamin with folic acid 400 1 tab PO DAILY 03/15/16 04/28/24 History mcg tablet omeprazole 20 mg capsule,delayed 20 mg PO DAILY 03/15/16 04/28/24 History release albuterol sulfate 90 mcg/actuation 2 puff inhalation Q2H PRN PRN 08/09/17 04/28/24 History aerosol inhaler Asthma 30 days ##9 montelukast 10 mg tablet 10 mg PO QDAY 08/09/17 04/28/24 History (Singulair) simvastatin 40 mg tablet 40 mg PO QHS #90 tabs 07/17/19 04/28/24 Rx nitroglycerin 0.4 mg sublingual 0.4 mg sublingual Q5-15M PRN chest 09/11/22 04/28/24 Rx tablet (Nitrostat) pain #25 tabs budesonide 180 mcg/actuation 2 inh inhalation BID 04/09/24 04/28/24 History breath activated powder inhaler (Pulmicort Flexhaler) cholecalciferol (vitamin D3) 25 1,000 unit PO DAILY 04/24/24 04/28/24 History mcg (1,000 unit) capsule (Vitamin D3) PFSH Medical History Back pain Segmental and somatic dysfunction of thoracic region Obesity (BMI 30.0-34.9) 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) Asthma, moderate persistent 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 HLD (hyperlipidemia) Surgical History History of left heart catheterization (03/30/99) History of coronary artery stent placement (02/27/99) History of herniorrhaphy Family History Father CAD (coronary artery disease) Mother Breast cancer Social History Smoking Status: Never smoker alcohol intake: never substance use type: does not use caffeine: Yes Type: tea Number of servings: 1 what type of physical activity do you participate in: other seatbelt use: always do you feel safe at home: Yes ROS Const Const: Negative for fatigue, weakness, fever(s) or headache(s) Eyes Eyes: Negative for blind spots, loss of peripheral vision or transient loss of vision ENT ENT: Negative for headache(s), dizziness, tinnitus, Nosebleed/epistaxis or balance problems Cardio Chest Pain: No Palpitations: No Edema: None Muscle aches with walking: None Resp Respiratory: Negative for SOB with activity, SOB at rest, SOB orthopnea SOB lying down or Cough GI GI: Negative nausea, vomiting, heartburn or vomiting blood/hematemesis : Negative for hematuria Musc Musc: Negative for muscle aches/ myalgia, muscle weakness, joint pain or balance problems Neuro Neuro: Negative for dizziness, lightheadedness, near syncope, syncope, orthostatic symptoms, headache(s) or weakness Pradip Hematologic/Lymphatic: Negative for easy bleeding Endo Endo: Negative for fatigue Cardiology Exam Const Appearance: cooperative, healthy appearing, comfortable, no acute distress and well developed Orientation: alert, awake and oriented x3 Head Head: normal to inspection Ears: hearing grossly normal bilaterally Nose: external nose normal Face and (more content not included)... Normal [facility] 12 Lead EKGon 04-24-2024 12 Lead EKG [facility] Cardiovascular Services [address] [place] [address] 12 Lead EKG 04/24/24 1625 MR#: [id number] Acct: [id number] Name: TEODORO RIZZO Rep #: [id number] : 1960 63 From: Otilio Collado MD Attending Dr: Status: DEP ER Ordering Dr: Sally Villasenor Date: 04/24/24 Location: ED Sex: M C Admitted: Test Reason : ARRYTH Blood Pressure : */* mmHG Vent. Rate : 76 BPM Atrial Rate : 76 BPM P-R Int : 152 ms QRS Dur : 88 ms QT Int : 362 ms P-R-T Axes : * -7 -1 degrees QTcB Int : 407 ms Sinus rhythm with frequent Premature ventricular complexes in a pattern of bigeminy Inferior infarct (cited on or before 27-Jul-1999) Abnormal ECG Confirmed by Otilio Collado ([id number]), associate editor ELIOT RAZA ([id number]) on 04/27/2024 10:23:43 AM Referred By: MARION/SALVADOR Confirmed By: Otilio Collado 04/27/24 1023 Date Otilio Collado MD CC: Dr. Toi Celeste MD; Dr. Kal Vazquez DO; ANTONIO May Signed Normal [facility] Basic Metabolic Profile (BMP )on 04-24-2024 BUN/CRE 22.2 RATIO High 10-20 [facility] Comment on above: Performed By: #### L 500.2500, L100.0100, L501.5200 #### [facility] [address] [place], [address] CA,Total 9.4 mg/dL Normal 8.5-10.1 [facility] Comment on above: Performed By: #### L 500.2500, L100.0100, L501.5200 #### [facility] [address] [place], [address] Chloride [Moles/Vol] 110 mmol/L High 98-107 [facility] Comment on above: Performed By: #### L 500.2500, L100.0100, L501.5200 #### [facility] [address] [place], [address] CO2 [Moles/Vol] 25.0 mmol/L Normal 21.0-32.0 [facility] Comment on above: Performed By: #### L 500.2500, L100.0100, L501.5200 #### [facility] [address] [place], [address] Creatinine [Mass/Vol] 0.81 mg/dL Normal 0.70-1.30 [facility] Comment on above: Result Comment: The validity of the calculated GFR GFRAA in patients over 70 years has not been determined. Clinical correlation is essential. Performed By: #### L 500.2500, L100.0100, L501.5200 #### [facility] [address] [place], [address] ECRCL 95.57 ml/min Normal [facility] Comment on above: Performed By: #### L 500.2500, L100.0100, L501.5200 #### [facility] [address] [place], [address] EST GFR - AA 123 mL/min Normal >60 [facility] Comment on above: Result Comment: Afri can Japanese GFR Calc Performed By: #### L 500.2500, L100.0100, L501.5200 #### [facility] [address] [place], [address] GAP 4 Low 5-15 [facility] Comment on above: Performed By: #### L 500.2500, L100.0100, L501.5200 #### [facility] [address] [place], [address] GFR/1.73 sq M.predicted among non-blacks MDRD (S/P/Bld) [Vol rate/Area] 102 mL/min/{1.73_m2} Normal >60 [facility] Comment on above: Result Comment: Non- GFR Calc Performed By: #### L 500.2500, L100.0100, L501.5200 #### [facility] [address] [place], [address] Glucose [Mass/Vol] 97 mg/dL Normal 74-106 [facility] Comment on above: Performed By: #### L 500.2500, L100.0100, L501.5200 #### [facility] [address] [place], [address] Potassium [Moles/Vol] 3.8 mmol/L Normal 3.5-5.1 [facility] Comment on above: Performed By: #### L 500.2500, L100.0100, L501.5200 #### [facility] [address] [place], [address] Sodium [Moles/Vol] 140 mmol/L Normal 136-145 [facility] Comment on above: Performed By: #### L 500.2500, L100.0100, L501.5200 #### [facility] [address] [place], [address] Urea nitrogen [Mass/Vol] 18 mg/dL Normal 7-18 [facility] Comment on above: Performed By: #### L 500.2500, L100.0100, L501.5200 #### [facility] [address] [place], [address] CBC W/Diff, Automatedon 04-15 0-2024 Absolute Lymph 1.77 X10 3/uL Normal 0.83-4.51 [facility] Comment on above: Performed By: #### L 500.2500, L100.0100, L501.5200 #### [facility] [address] [place], [address] Absolute Neut 5.5 X10 3/uL Normal 2.0-7.7 [facility] Comment on above: Performed By: #### L 500.2500, L100.0100, L501.5200 #### [facility] [address] [place], [address] Basophils/100 WBC (Bld) 0.6 % Normal 0-1 [facility] Comment on above: Performed By: #### L 500.2500, L100.0100, L501.5200 #### [facility] [address] [place], [address] Eosinophils/100 WBC (Bld) 3.4 % Normal 0-5 [facility] Comment on above: Performed By: #### L 500.2500, L100.0100, L501.5200 #### [facility] [address] [place], [address] Erythrocyte distribution width (RBC) [Ratio] 13.3 % Normal 11.6-14.6 [facility] Comment on above: Performed By: #### L 500.2500, L100.0100, L501.5200 #### [facility] [address] [place], [address] Hematocrit (Bld) [Volume fraction] 47.5 % Normal 40-54 [facility] Comment on above: Performed By: #### L 500.2500, L100.0100, L501.5200 #### [facility] [address] [place], [address] Hemoglobin (Bld) [Mass/Vol] 16.1 g/dL Normal 13.0-16.5 [facility] Comment on above: Performed By: #### L 500.2500, L100.0100, L501.5200 #### [facility] [address] [place], [address] IG% 0.400 Normal 0.0-0.9 [facility] Comment on above: Result Comment: IG% - Immature Granulocytes (promyelocytes, myelocytes and metamyelocytes) > 1% indicates that a LEFT SHIFT is Present. Performed By: #### L 500.2500, L100.0100, L501.5200 #### [facility] [address] [place], [address] Lymphocytes/100 WBC (Bld) 21.4 % Normal 19-41 [facility] Comment on above: Performed By: #### L 500.2500, L100.0100, L501.5200 #### [facility] [address] [place], [address] MCH (RBC) [Entitic mass] 30.1 pg Normal 27.0-32.0 [facility] Comment on above: Performed By: #### L 500.2500, L100.0100, L501.5200 #### [facility] [address] [place], [address] MCHC (RBC) [Mass/Vol] 33.9 g/dL Normal 32-36 [facility] Comment on above: Performed By: #### L 500.2500, L100.0100, L501.5200 #### [facility] [address] [place], [address] MCV (RBC) [Entitic vol] 89.0 fL Normal 80-94 [facility] Comment on above: Performed By: #### L 500.2500, L100.0100, L501.5200 #### [facility] [address] [place], [address] Monocytes/100 WBC (Bld) 8.2 % Normal 0-10 [facility] Comment on above: Performed By: #### L 500.2500, L100.0100, L501.5200 #### [facility] [address] [place], [address] Neutrophils/100 WBC (Bld) 66.0 % Normal 47-70 [facility] Comment on above: Performed By: #### L 500.2500, L100.0100, L501.5200 #### [facility] [address] [place], [address] Nucleated RBC (Bld) [#/Vol] 0 10*3/uL Normal 0-5 [facility] Comment on above: Performed By: #### L 500.2500, L100.0100, L501.5200 #### [facility] [address] [place], [address] Platelet mean volume (Bld) [Entitic vol] 9.4 fL Normal 6.2-12.0 [facility] Comment on above: Performed By: #### L 500.2500, L100.0100, L501.5200 #### [facility] [address] [place], [address] Platelets (Bld) [#/Vol] 242 10*3/uL Normal 150-450 [facility] Comment on above: Performed By: #### L 500.2500, L100.0100, L501.5200 #### [facility] [address] [place], [address] RBC (Bld) [#/Vol] 5.34 10*6/uL Normal 4.6-6.2 [facility] Comment on above: Performed By: #### L 500.2500, L100.0100, L501.5200 #### [facility] [address] [place], [address] RDW SD 43.0 fl Normal 35.1-43.9 [facility] Comment on above: Performed By: #### L 500.2500, L100.0100, L501.5200 #### [facility] [address] [place], [address] WBC (Bld) [#/Vol] 8.3 10*3/uL Normal 4.4-11.0 [facility] Comment on above: Performed By: #### L 500.2500, L100.0100, L501.5200 #### [facility] [address] [place], [address] Emergency Department Summary on 04-24-2024 Emergency Department Summary [facility] Medical Records Department [address] [place] [address] Emergency Department Summary 04/24/24 MR#: [id number] Acct: [id number] Name: TEODORO RIZZO Rep #: [id number] : 1960 63 From: Toi Celeste MD PCP: Dr. 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 He is not sure why they did an EKG. He has no symptoms and denies chest pain, shortness of breath, palpitations, lightheadedness, syncope, nausea vomiting or abdominal pain. He had a heart attack around 1998 and had stents placed. He denies cardiac events since then. He is on aspirin and a statin. He is a patient of Dr. Oh and reports having a normal echocardiogram in February 2024. 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 HLD (hyperlipidemia) Home Medications ???Medication ???Instructions ???Recorded ???Last Taken ???Type ascorbic acid (vitamin C) 1,000 mg 1,000 mg PO DAILY 03/15/16 Unknown History tablet aspirin 81 mg tablet,delayed 81 mg PO DAILY 03/15/16 Unknown History release multivitamin with folic acid 400 1 tab PO DAILY 03/15/16 Unknown History mcg tablet omeprazole 20 mg capsule,delayed 20 mg PO DAILY 03/15/16 Unknown History release albuterol sulfate 90 mcg/actuation 2 puff inhalation Q2H PRN PRN 08/09/17 Unknown History aerosol inhaler Asthma 30 days ##9 montelukast 10 mg tablet 10 mg PO QDAY 08/09/17 Unknown History (Singulair) simvastatin 40 mg tablet 40 mg PO QHS #90 tabs 07/17/19 Unknown Rx nitroglycerin 0.4 mg sublingual 0.4 mg sublingual Q5-15M PRN chest 09/11/22 Unknown Rx tablet (Nitrostat) pain #25 tabs budesonide 180 mcg/actuation 2 inh inhalation BID 04/09/24 Unknown History breath activated powder inhaler (Pulmicort Flexhaler) cholecalciferol (vitamin D3) 25 1,000 unit PO DAILY 04/24/24 Unknown History mcg (1,000 unit) capsule (Vitamin D3) Allergy/AdvReac Type Severity Reaction Status Date / Time No Known Allergies Allergy Verified 04/24/24 16:22 Family History Father CAD (coronary artery disease) Mother Breast cancer Surgical History History of left heart catheterization (03/30/99) History of coronary artery stent placement (02/27/99) History of herniorrhaphy Social History Smoking Status: Never smoker alcohol intake: never substance use type: does not use caffeine: Yes Type: tea Number of servings: 1 what type of physical activity do you participate in: other seatbelt use: always do you feel safe at home: Yes ROS ROS ED ROS Narrative Constitutional: Negative for fever, chills, malaise. CVS: Negative for palpitations, chest pain, syncope. Respiratory: Negative for shortness of breath, cough. GI: Negative for abdominal pain, nausea, vomiting. EXAM Physical Exam Narrative Exam Narrative: CONST: Patient sitting in no acute distress. EYES: Normal inspection. NECK: Normal inspection. RESP: No respiratory distress, CTAB. CVS: Regular rate and rhythm, no murmur, no gallop. SKIN: Color normal, no rash, warm, dry, intact. EXTREMITIES: Normal appearance, no pedal edema. NEURO: Alert and answering questions appropriately. PSYCH: Normal affect. Const Vital Signs: 04/24/24 16:22 04/24/24 16:22 04/24/24 16:25 Temperature 98.4 F Temperature Source Oral Pulse Rate 83 73 Respiratory Rate 18 20 H Respiratory Effort Normal Blood Pressure 163/102 H 136/102 H Blood Pressure Mean 122 113 Pulse Ox 96 98 Oxygen Delivery Method Room Air Room Air 04/24/24 16:26 04/24/24 16:30 04/24/24 16:33 Temperature Temperature Source Pulse Rate 68 92 78 Respiratory Rate 19 H 24 H 20 H Respiratory Effort Blood Pressure 158/77 H 158/77 H Blood Pressure Mean 102 104 Pulse Ox 95 Oxygen Delivery Method Room Air 04/24/24 16:51 04/24/24 17:00 04/24/24 17:15 Temperature Temperature Source Pulse Rate 77 95 96 Respiratory Rate 21 H 21 H 24 H Respiratory Effort Blood Pressure 136/88 H Blood Pressure Mean 102 Pulse Ox 97 Oxygen Delivery Method Room Air Physical Exam Const Vital Si (more content not included)... Normal [facility] Magnesiumon 01-10-2025 Magnesium [Mass/Vol] 2.0 mg/dL Normal 1.6-2.6 [facility] Comment on above: Performed By: #### L 500.2500, L100.0100, L501.5200 #### [facility] [address] [place], [address] Cardiology Visit Reporton Cardiology Visit Report [facility] [address] [place] [address] OFFICE VISIT Date of Service: 04/09/24 MR#: [id number] Acct: [id number] Name: TEODORO RIZZO Rep #: [id number] : 1960 Provider: Dr. García Oh MD Age/Sex: 63/M Location: [facility] Status: Signed HPI HPI History of Present Illness Details: TEODORO RIZZO, is a 63 y/o gentleman who presents here for a cardiovascular follow-up visit. He has a history of coronary artery disease status post angioplasty and stenting of the right coronary artery remotely in 1988 as well as a history of hyperlipidemia.??? In March 2023 he underwent a pharmacologic myocardial perfusion stress test which demonstrated no evidence of ischemia the gated ejection fraction was noted to be normal.??? He also had an echocardiogram performed in February 2024 demonstrating ejection fraction of 60%. From a cardiac standpoint, the patient is doing well. He denies any palpitations, chest pain, pressure or heaviness. He denies SOB, Orthopnea, and PND. He does not have bleeding issues; no blood in urine, stool or nosebleeds. He denies any decrease in energy level, myalgias, or claudication. He does not have edema, or sudden weight gain. He denies dizziness, lightheadedness, syncopal or near syncopal episodes, and headaches. He states that he is planning on snf pretty soon. Intake Vital Signs 03/13/23 15:25 04/09/24 13:51 Height 5 ft 5 in 5 ft 5 in Weight: 194 lb BMI 32.3 BP 144/85 H Blood Pressure Location Lt brachial Position Sitting Respiration 16 Pulse 56 L Pulse Source Monitor Intake Visit Reasons: 1 Y FU Evaluation Specialist Required: No Accompanied by: Self Is patient in pain?: No Allergies No Known Allergies Allergy (Verified 04/09/24 13:53) Medications ???Medication ???Instructions ???Recorded ???Confirmed ???Type ascorbic acid (vitamin C) 1,000 mg 1,000 mg PO DAILY 03/15/16 04/09/24 History tablet aspirin 81 mg tablet,delayed 81 mg PO DAILY 03/15/16 04/09/24 History release multivitamin with folic acid 400 1 tab PO DAILY 03/15/16 04/09/24 History mcg tablet omeprazole 20 mg capsule,delayed 20 mg PO DAILY 03/15/16 04/09/24 History release albuterol sulfate 90 mcg/actuation 2 puff inhalation Q2H PRN PRN 08/09/17 04/09/24 History aerosol inhaler Asthma 30 days ##9 montelukast 10 mg tablet 10 mg PO QDAY 08/09/17 04/09/24 History (Singulair) simvastatin 40 mg tablet 40 mg PO QHS #90 tabs 07/17/19 04/09/24 Rx nitroglycerin 0.4 mg sublingual 0.4 mg sublingual Q5-15M PRN chest 09/11/22 04/09/24 Rx tablet (Nitrostat) pain #25 tabs budesonide 180 mcg/actuation 2 inh inhalation BID 04/09/24 04/09/24 History breath activated powder inhaler (Pulmicort Flexhaler) loratadine 10 mg tablet (Claritin) 10 mg PO DAILY PRN 04/09/24 04/09/24 History Have you fallen in the past year?: No PFSH Medical History Back pain Segmental and somatic dysfunction of thoracic region Obesity (BMI 30.0-34.9) 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) Asthma, moderate persistent 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 HLD (hyperlipidemia) Surgical History History of left heart catheterization (03/30/99) History of coronary artery stent placement (02/27/99) History of herniorrhaphy Family History Father CAD (coronary artery disease) Mother Breast cancer Social History Smoking Status: Never smoker alcohol intake: never substance use type: does not use caffeine: Yes Type: tea Number of servings: 1 what type of physical activity do you participate in: other seatbelt use: always do you feel safe at home: Yes ROS Const Const: Negative for fatigue, weakness, headache(s), daytime sleepiness or difficulty sleeping ENT ENT: Negative for headache(s), dizziness or Nosebleed/epistaxis Cardio Chest Pain: No Palpitations: No Edema: None Resp Respiratory: Negative for SOB with activity, SOB at rest, SOB orthopnea SOB lying down or Cough GI GI: Negative nausea, vomiting or heartburn Neuro Neuro: Negative for dizziness, lightheadedness, near syncope, headache(s) or weakness Endo Endo: Negative for fatigue Cardiology Exam Const Appearance: cooperative, healthy appearing, no acute distress, well developed and well groomed Nutritional Appearance: average body habitus, well nourished and obese Orientation: alert, awake and oriented x3 Head Head: normal to inspection, normocephalic and atraumatic Ears: hearing grossly normal (more content not included)... Normal [facility] [place] 02-26-2024 [facility] Telephone (FAMWS) TEODORO RIZZO ([id number]) 1960 M Date Time Provider Department 02/26/24 KAL VAZQUEZ [facility] During your visit today, we recorded the following information about you: Kal Vazquez DO 02/26/2024 9:22 AM Signed Please inform patient that his ECHO is normal/stable and unchanged from prior testing DO Kathy Joyce Sue E, LPN 02/26/2024 9:28 AM Signed Patient aware of results. 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 Amber Dawkins LPN Allergies As of Date: 02/26/2024 (No Known Allergies) Date Reviewed: 02/12/2024 Reviewed by: Anna Rogers LPN - Fully Assessed Prescriptions as of 02/26/2024 - simvastatin (ZOCOR) 40 mg tablet Take 1 tablet by mouth daily at bedtime. - omeprazole (PRILOSEC) 20 mg capsule Take 1 capsule by mouth daily before breakfast. 1/2 hr before meal. - predniSONE (DELTASONE) 10 mg tablet Take 4 tabs daily for 3 days, then 2 tabs daily for 3 days, then 1 tab daily for 3 days with food. - albuterol HFA (PROAIR HFA) 90 mcg/actuation inhaler Inhale 2 Puffs as instructed every 4 hours as needed. - budesonide (PULMICORT FLEXHALER) 180 mcg/actuation aepb Inhale 2 Puffs as instructed two times a day. - montelukast (SINGULAIR) 10 mg tablet Take 1 tablet by mouth daily at bedtime. - MULTI-VITAMIN ORAL Take by mouth. - ascorbic acid (VITAMIN C) 500 mg tablet Take 500 mg by mouth once daily. - Aspirin 81 mg ORAL Tab Take 81 mg by mouth. Problem List As Of Date 02/26/2024 Noted Resolved CAD (coronary artery disease) [I25.10] 07/04/2012 Hyperlipidemia [E78.5] 07/04/2012 Asthma [J45.909] 07/04/2012 GERD (gastroesophageal reflux disease) [K21.9] 07/04/2012 Umbilical hernia without obstruction and withou*06/21/2015 Coronary artery disease due to lipid rich plaqu*10/14/2018 Well adult exam [Z00.00] 10/14/2018 Gastroesophageal reflux disease without esophag*10/14/2018 Obesity, Class I, BMI 30-34.9 [E66.811] 10/14/2018 Actinic keratosis [L57.0] 01/19/2022 Chronic pain of left thumb [M79.645, G89.29] 01/19/2022 Atypical squamoproliferative skin lesion [D49.2]08/21/2022 LVH (left ventricular hypertrophy) [I51.7] 02/12/2024 Encounter Status:Closed by KATHY, SUE Bhavesh on 02/26/24 Normal [facility] ECHOon 02-25-2024 Echocardiography Echocardiography Rep ort: Transthoracic Echo [facility] Date of service: 02/25/2024 2:28:[address] [employer] Ordering physician: KAL VAZQUEZ Indication: CAD Technologist: Xin Vigil [facility] Interpreting physician: Stephen Villatoro DO PATIENT: Name: MR. TEODORO RIZZO : 1960 Age: 63 years Gender: M History of coronary artery disease and dyslipidemia. Previous cardiovascular interventions: PCI (O/H) (1998) Primary rhythm: sinus. Secondary rhythm: PVC. Height: 161.00 cm BSA: 1.98 m Weight: 87.54 kg BMI: 33.8 kg/m Heart rate 92 bpm Blood pressure 150/86 mmHg Technically difficult exam due to body habitus. Color Doppler was utilized to interrogate the cardiac valves assessed and spectral Doppler was utilized to determine the flow velocities and pressure gradients reported in this exam. MEASUREMENTS: Value Indexed Normal Max aortic dimension 3.3 cm Ao < 3.8 Left atrial volume 47 ml (biplane A-L) 24 ml/m [employer] <= 34 LV ID (diastole) 4.3 cm (2D) 2.19 cm/m LV ID (systole) 3.0 cm (2D) 1.53 cm/m IVS, leaflet tips 1.1 cm (2D) Posterior wall thickness 1.1 cm (2D) Left ventricular mass 172 g (2D) 87 g/m LV stroke volume 58 ml (2D biplane) LV end diastolic volume 97 ml (2D biplane) 49.2 ml/m 34<=EDVi<75 LV end systolic volume 39 ml (2D biplane) 19.9 ml/m Ejection Fraction 60 % (2D biplane) EF > 52 FINDINGS: LEFT VENTRICLE The left ventricle is normal in size. Left ventricular systolic function is normal. Indeterminate left ventricular diastolic function. Wall Motion: All scored segments are normal. RIGHT VENTRICLE The right ventricle is normal in size. Right ventricular systolic function is normal. RV systolic tissue Doppler velocity is 12.0 cm/s. Tricuspid annular displacement is 2.3 cm. Estimated right ventricular systolic pressure is not reported due to an insufficient tricuspid regurgitation signal. Estimated right atrial pressure is 3 mmHg (although IVC not seen). LEFT ATRIUM The left atrial cavity is normal in size. RIGHT ATRIUM The right atrial cavity is normal in size. Inferior Vena Cava: The inferior vena cava appears normal measuring 1.5 cm. MITRAL VALVE The mitral valve leaflets are structurally normal. There is no mitral valve regurgitation. TRICUSPID VALVE The tricuspid valve leaflets are structurally normal. There is trace tricuspid valve regurgitation. AORTIC VALVE The aortic valve cusps are structurally normal. There is no aortic valve regurgitation. The peak gradient is 11 mmHg (peak velocity = 162.0 cm/s). PULMONIC VALVE The pulmonic valve cusps are structurally normal. There is no pulmonic valve regurgitation. AORTA The visualized aorta is normal in size. Measurements - Mid ascending aorta 3.3 cm. INTERVENTRICULAR SEPTUM There is abnormal motion of the interventricular septum secondary to abnormal conduction. PERICARDIUM There is no pericardial effusion. There is an epicardial fat pad. CONCLUSIONS: - Technically difficult exam due to body habitus. - Exam indication: CAD - The left ventricle is normal in size. Left ventricular systolic function is normal. EF = 60 5% (2D biplane) Indeterminate left ventricular diastolic function. - The right ventricle is normal in size. Right ventricular systolic function is normal. - There are no significant valvular abnormalities. - Exam was compared with the prior echocardiographic exam performed on 06/27/2015, no significant change. * * * Final * * * [employer] : [id number] Normal [facility] C-REACTIVE PROTEIN (CRP)on 1 05-17-2022 CRP [Mass/Vol] 1.0 mg/dL High NINF - 0.9 mg/dL [facility] CBC W Auto Differential pane l (Bld)on 03-16-2023 Basophils (Bld) [#/Vol] 0.04 10*3/uL NINF [facility] Basophils/100 WBC (Bld) 0.6 % [facility] Differential cell count method Nom (Bld) Auto [facility] Eosinophils (Bld) [#/Vol] 0.22 10*3/uL [facility] Eosinophils/100 WBC (Bld) 3.0 % [facility] Erythrocyte distribution width (RBC) [Ratio] 13.0 % 11.5 - 15.0 % [facility] Hematocrit (Bld) [Volume fraction] 48.6 % 39.0 - 51.0 % [facility] Hemoglobin (Bld) [Mass/Vol] 16.2 g/dL 13.0 - 17.0 g/dL [facility] Immature granulocytes (Bld) [#/Vol] [facility] Immature granulocytes/100 WBC (Bld) 0.3 % [facility] Lymphocytes (Bld) [#/Vol] 1.39 10*3/uL [facility] Lymphocytes/100 WBC (Bld) 19.2 % [facility] MCH (RBC) [Entitic mass] 30.2 pg 26.0 - 34.0 pg [facility] MCHC (RBC) [Mass/Vol] 33.3 g/dL 30.5 - 36.0 g/dL [facility] MCV (RBC) [Entitic vol] 90.5 fL 80.0 - 100.0 fL [facility] Monocytes (Bld) [#/Vol] 0.62 10*3/uL [facility] Monocytes/100 WBC (Bld) 8.6 % [facility] Neutrophils (Bld) [#/Vol] 4.96 10*3/uL [facility] Neutrophils/100 WBC (Bld) 68.3 % [facility] Nucleated RBC (Bld) [#/Vol] [facility] Nucleated RBC/100 WBC (Bld) [Ratio] 0.0 % /100 WBC [facility] Platelet mean volume (Bld) [Entitic vol] 9.8 fL 9.0 - 12.7 fL [facility] Platelets (Bld) [#/Vol] 250 10*3/uL [facility] RBC (Bld) [#/Vol] 5.37 10*6/uL 4.20 - 6.0 0 m/uL [facility] WBC (Bld) [#/Vol] 7.25 10*3/uL [facility] Comprehensive metabolic 2000 panelon 03-16-2023 Albumin [Mass/Vol] 4.2 g/dL 3.9 - 4.9 g/dL [facility] ALP [Catalytic activity/Vol] 77 U/L 38 - 113 U/L [facility] ALT [Catalytic activity/Vol] 24 U/L 10 - 54 U/L [facility] Anion gap [Moles/Vol] 12 mmol/L 9 - 18 mmol/L [facility] AST [Catalytic activity/Vol] 23 U/L 14 - 40 U/L [facility] Bilirubin [Mass/Vol] 0.9 mg/dL 0.2 - 1.3 mg/dL [facility] Calcium [Mass/Vol] 9.2 mg/dL 8.5 - 10. 2 mg/dL [facility] Chloride [Moles/Vol] 107 mmol/L High 97 - 105 mmol/L [facility] CO2 [Moles/Vol] 22 mmol/L 22 - 30 mmol/L [facility] Creatinine [Mass/Vol] 0.90 mg/dL 0.73 - 1.22 mg/dL [facility] GFR/1.73 sq M.predicted among non-blacks MDRD (S/P/Bld) [Vol rate/Area] 96 mL/min/{1.73_m2} - PINF [facility] Comment on above: Estimated Glomerular Filtration Rate (eGFR) is calculated using the 2020 CKD-EPI creatinine equation. This equation utilizes serum creatinine, sex, and age as parameters. The creatinine assay has traceable calibration to isotope dilution-mass spectrometry. Refer to KDIGO guidelines for clinical interpretation. In patients with unstable renal function, e.g. those with acute kidney injury, the eGFR may not accurately reflect actual GFR. Glucose [Mass/Vol] 92 mg/dL 74 - 99 mg/dL [facility] Comment on above: The [place] Diabete s Association (ADA) provides guidance for cutoff values for fasting glucose and random glucose. The ADA defines fasting as no caloric intake for at least 8 hours. Fasting plasma glucose results between 100 to 125 mg/dL indicate increased risk for diabetes (prediabetes). Fasting plasma glucose results greater than or equal to 126 mg/dL meet the criteria for diagnosis of diabetes. In the absence of unequivocal hyperglycemia, results should be confirmed by repeat testing. In a patient with classic symptoms of hyperglycemia or hyperglycemic crisis, random plasma glucose results greater than or equal to 200 mg/dL meet the criteria for diagnosis of diabetes. Reference: Standards of Medical Care in Diabetes 2016, [place] Diabetes Association. Diabetes Care. 2016.39(Suppl 1). Potassium [Moles/Vol] 4.0 mmol/L 3.7 - 5.1 mmol/L [facility] Protein [Mass/Vol] 6.6 g/dL 6.3 - 8.0 g/dL [facility] Sodium [Moles/Vol] 141 mmol/L 136 - 144 mmol/L [facility] Urea nitrogen [Mass/Vol] 14 mg/dL 9 - 24 mg/dL [facility] HbA1c (Bld)on 03-16-2023 Average glucose Estimated from glycated hemoglobin (Bld) [Mass/Vol] 97 mg/dL [facility] Comment on above: eAG: (Estimated aver age glucose) is a calculated value from HgbA1c and is independent sales representative of the average blood glucose level in the last 2-3 month period. HbA1c (Bld) [Mass fraction] 5.0 % 4.3 - 5.6 % [facility] Comment on above: [place] Diabetes As sociation guidelines indicate that patients with HgbA1c in the range 5.7-6.4% are at increased risk for development of diabetes, and intervention by lifestyle modification may be beneficial. HgbA1c greater or equal to 6.5% is considered diagnostic of diabetes. [facility] Lipid 1996 panelon 3 Cholesterol [Mass/Vol] 143 mg/dL NINF - 200 mg/dL [facility] Comment on above: <200 mg/dL, Desirabl e 200-239 mg/dL, Borderline high >239 mg/dL, High Cholesterol in HDL [Mass/Vol] 48 mg/dL 39 - PINF mg/dL [facility] Comment on above: 40-59 mg/dL, Accepta ble >59 mg/dL, High: Negative risk factor for coronary heart disease <40 mg/dL, Low: Positive risk factor for coronary heart disease Cholesterol in LDL [Mass/Vol] 77 mg/dL NINF - 100 mg/dL [facility] Comment on above: <100 mg/dL, Optimal 100-129 mg/dL, Near optimal/above optimal 130-159 mg/dL, Borderline high 160-189 mg/dL, High >189 mg/dL, Very high Secondary prevention optimal LDL Cholesterol levels are recommended to be < 70 mg/dL Cholesterol in LDL/Cholesterol in HDL [Mass ratio] 1.60 {ratio} NINF - 2.54 [facility] Comment on above: Reference: 1. National Cholesterol Education Program ATP III Guideline At-A-Glance Quick Desk Reference: National Heart, Lung, and Blood Rogers. National Institutes of Health. 2001: NIH Publication No. 01-3305. 2. An International Atherosclerosis Society position paper: global recommendations for the management of dyslipidemia: executive summary, Atherosclerosis. 2014: 232(2):410-413. Cholesterol in VLDL [Mass/Vol] 18 mg/dL NINF - 30 mg/dL [facility] Cholesterol non HDL [Mass/Vol] 95 mg/dL NINF - 130 mg/dL [facility] Comment on above: <130 mg/dL, Optimal 130-159 mg/dL, Near optimal/above optimal 160-189 mg/dL, Borderline high 190-219 mg/dL, High >219 mg/dL, Very high Secondary prevention optimal non HDL Cholesterol levels are recommended to be <100 mg/dL Cholesterol.total/C holesterol in HDL [Mass ratio] 2.98 {ratio} NINF - 5.10 [facility] Fasting Time 12 hrs [facility] Triglyceride [Mass/Vol] 90 mg/dL NINF - 150 mg/dL [facility] Comment on above: <150 mg/dL, Normal 150-199 mg/dL, Borderline high 200-499 mg/dL, High >499 mg/dL, Very high No Panel Informationon 03-16 Interpretation and review of laboratory results Abnormal [facility] PSA/PROSTSPECAG SCRNon 03-16 Interpretation and review of laboratory results Normal [facility] Prostate specific Ag [Mass/Vol] 0.71 ng/mL NINF - 2.60 ng/mL [facility] Comment on above: Total PSA test metho dology used is the Electrochemiluminescence Immunoassay by [employer]. Total PSA values by differing methodologies cannot be interchanged. [facility] Vital Signs Date Time Vital Sign Value Performing Clinician Facility 01-18-2025 09:46-0400 Body height 165.[address] Kal Vazquez DO Work Phone: [facility] 01-18-2025 09:46-0400 Diastolic blood pressure 84 mm[Hg] Dr. Kal Vazquez DO Work Phone: [facility] 01-18-2025 09:46-0400 Systolic blood pressure 146 mm[Hg] Dr. Kal Vazquez DO Work Phone: [facility] 02-12-2024 15:50-0400 Body height 161 cm Kal Vazquez DO Work Phone: [facility] 02-12-2024 15:50-0400 Body mass index (BMI) [Ratio] 33.77 kg/m2 Kal Vazquez DO Work Phone: [facility] 02-12-2024 15:50-0400 Body temperature 97.11 [degF] Kal Vazquez DO Work Phone: [facility] 02-12-2024 15:50-0400 Body weight 87.54 kg Kal Vazquez DO Work Phone: [facility] 02-12-2024 15:50-0400 Diastolic blood pressure 80 mm[Hg] Kal Vazquez DO Work Phone: [facility] 02-12-2024 15:50-0400 Heart rate 64 /min Kal Vazquez DO Work Phone: [facility] 02-12-2024 15:50-0400 Respiratory rate 20 /min Kal Vazquez DO Work Phone: [facility] 02-12-2024 15:50-0400 Systolic blood pressure 122 mm[Hg] Kal Vazquez DO Work Phone: [facility] 08-16-2023 16:38-0400 Body mass index (BMI) [Ratio] 32.53 kg/m2 Padmini Lauren RECORD CLERK.STENCIL TYPIST Work Phone: [facility] 08-16-2023 16:38-0400 Body temperature 98.1 [degF] Padmini Lauren RECORD CLERK.STENCIL TYPIST Work Phone: [facility] 08-16-2023 16:38-0400 Body weight 87.5 kg Padmini Lauren RECORD CLERK.STENCIL TYPIST Work Phone: [facility] 08-16-2023 16:38-0400 Diastolic blood pressure 66 mm[Hg] Padmini Lauren RECORD CLERK.STENCIL TYPIST Work Phone: [facility] 08-16-2023 16:38-0400 Heart rate 68 /min Padmini Lauren RECORD CLERK.STENCIL TYPIST Work Phone: [facility] 08-16-2023 16:38-0400 Respiratory rate 16 /min Padmini Lauren RECORD CLERK.STENCIL TYPIST Work Phone: [facility] 08-16-2023 16:38-0400 SaO2% (BldA) [Mass fraction] 97 % Padmini Lauren RECORD CLERK.STENCIL TYPIST Work Phone: [facility] 08-16-2023 16:38-0400 Systolic blood pressure 126 mm[Hg] Padmini Lauren RECORD CLERK.STENCIL TYPIST Work Phone: [facility] 07-31-2023 16:08-0400 Body height 164 cm Nani Lackey RECORD CLERK.STENCIL TYPIST Work Phone: [facility] 07-31-2023 16:08-0400 Body weight 86.64 kg Nani Lackey RECORD CLERK.STENCIL TYPIST Work Phone: [facility] 07-31-2023 16:08-0400 Diastolic blood pressure 60 mm[Hg] Nani Lackey RECORD CLERK.STENCIL TYPIST Work Phone: [facility] 07-31-2023 16:08-0400 Heart rate 58 /min Nani Lackey RECORD CLERK.STENCIL TYPIST Work Phone: [facility] 07-31-2023 16:08-0400 Respiratory rate 14 /min Nani Lackey RECORD CLERK.STENCIL TYPIST Work Phone: [facility] 07-31-2023 16:08-0400 SaO2% (BldA) [Mass fraction] 98 % Nani Lackey RECORD CLERK.STENCIL TYPIST Work Phone: [facility] 07-31-2023 16:08-0400 Systolic blood pressure 114 mm[Hg] Nani Lackey RECORD CLERK.STENCIL TYPIST Work Phone: [facility] 03-20-2023 14:57-0500 Body height 164 cm Kal Vazquez DO Work Phone: [facility] 03-20-2023 14:57-0500 Body temperature 97 [degF] Kal Vazquez DO Work Phone: [facility] 03-20-2023 14:57-0500 Body weight 88.45 kg Kal Vazquez DO Work Phone: [facility] 03-20-2023 14:57-0500 Diastolic blood pressure 80 mm[Hg] Kal Vazquez DO Work Phone: [facility] 03-20-2023 14:57-0500 Heart rate 64 /min Kal Vazquez DO Work Phone: [facility] 03-20-2023 14:57-0500 Respiratory rate 16 /min Kal Vazquez DO Work Phone: [facility] 03-20-2023 14:57-0500 Systolic blood pressure 120 mm[Hg] Kal Chaparison DO Work Phone: 8(038)[phone] [place] [address] 03-13-2023 15:25-0500 Body height 165.[address] Kal Vazquez Work Phone: 7(507)[phone] [place] [address] 03-13-2023 15:23-0500 Body mass index (BMI) [Ratio] 32.3 kg/m2 Dr. Kal Vazquez Work Phone: 9(589)[phone] [place] [address] 03-13-2023 15:23-0500 Body weight 87.[address] Kal Vazquez Work Phone: 3(133)[phone] [place] [address] 03-13-2023 15:23-0500 Diastolic blood pressure 89 mm[Hg] Dr. Kal Vazquez Work Phone: 4(000)[phone] [place] [address] 03-13-2023 15:23-0500 Heart rate 59 /min Dr. Kal Vazquez Work Phone: 6(501)[phone] [place] [address] 03-13-2023 15:23-0500 Respiratory rate 18 /min Dr. Kal Vazquez Work Phone: 9(854)[phone] [place] [address] 03-13-2023 15:23-0500 SaO2% (BldA) [Mass fraction] 95 % Dr. Kal Vazquez Work Phone: [facility] 03-13-2023 15:23-0500 Systolic blood pressure 135 mm[Hg] Dr. Kal Vazquez Work Phone: [facility] 08-21-2022 13:29-0400 Body temperature 96.6 [degF] Kal Vazquez DO Work Phone: [facility] 08-21-2022 13:29-0400 Body weight 87.54 kg Kal Vazquez DO Work Phone: [facility] 08-21-2022 13:29-0400 Diastolic blood pressure 80 mm[Hg] Kal Vazquez DO Work Phone: [facility] 08-21-2022 13:29-0400 Heart rate 64 /min Kal Vazquez DO Work Phone: [facility] 08-21-2022 13:29-0400 Respiratory rate 16 /min Kal Vazquez DO Work Phone: [facility] 08-21-2022 13:29-0400 Systolic blood pressure 120 mm[Hg] Kal Vazquez DO Work Phone: [facility] 06-05-2022 14:37-0500 Body temperature 97 [degF] Kal Vazquez DO Work Phone: [facility] 06-05-2022 14:37-0500 Body weight 87.54 kg Kal Vazquez DO Work Phone: [facility] 06-05-2022 14:37-0500 Diastolic blood pressure 84 mm[Hg] Kal Vazquez DO Work Phone: [facility] 06-05-2022 14:37-0500 Heart rate 64 /min Kal Vazquez DO Work Phone: [facility] 06-05-2022 14:37-0500 Respiratory rate 16 /min Kal Vazquez DO Work Phone: [facility] 06-05-2022 14:37-0500 Systolic blood pressure 124 mm[Hg] Kal Vazquez DO Work Phone: [facility] 01-19-2022 14:43-0400 Body height 163.8 cm Kal Vazquez DO Work Phone: [facility] 01-19-2022 14:43-0400 Body weight 86.64 kg Kal Vazquez DO Work Phone: [facility] 01-19-2022 14:43-0400 Diastolic blood pressure 78 mm[Hg] Kal Vazquez DO Work Phone: [facility] 01-19-2022 14:43-0400 Heart rate 68 /min Kal Vazquez DO Work Phone: [facility] 01-19-2022 14:43-0400 Respiratory rate 16 /min Kal Vazquez DO Work Phone: [facility] 01-19-2022 14:43-0400 Systolic blood pressure 128 mm[Hg] Kal Vazquez DO Work Phone: [facility] Encounters Encounter Date Encounter Type Care Provider Facility Start: 02-22-2025 End: 02-23-2025 ambulatory KAL L VAZQUEZ Facility:[facility] Start: 02-09-2025 End: 02-09-2025 ambulatory Kal Vazquez Facility:[facility] Start: 01-18-2025 End: 01-18-[address] America Agustin [place] [facility] Work Phone: Start: 01-18-2025 End: 01-18-[address] Kal Vazquez DO Work Phone: [facility] Start: 01-08-2025 End: 01-08-2025 ambulatory KAL L VAZQUEZ Facility:[facility] Start: 12-25-2024 End: 12-25-2024 ambulatory KAL L KAYLIE Facility:[facility] Start: 12-23-2024 End: 12-23-2024 ambulatory Kal L [facility]quez DO [facility] Phone[facility] Comment on above: Labs for my upcoming wellness physical Start: 12-23-2024 End: 12-23-2024 Patient encounter status Kal Chaparison DO Work Phone: [facility] Work Phone: Start: 12-23-2024 End: 12-23-2024 Telephone encounter Kal Chaparison DO Work Phone: [facility] Start: 09-25-2024 End: 10-08-2024 Refill Kal Chaparison DO Work Phone: [facility] Comment on above: Refill Request Start: 08-25-2024 End: 08-25-2024 Refill Kal Chaparison DO Work Phone: [facility] Comment on above: Refill Request Start: 08-24-2024 End: 08-25-2024 ambulatory Kal Chaparison DO Work Phone: [facility] Comment on above: Medication Start: 08-17-2024 End: 08-17-2024 Refill Kal Chaparison DO Work Phone: [facility] Comment on above: Refill Request Start: 08-14-2024 End: 08-17-2024 Refill Hailey Benitez APRN.STENCIL TYPIST Work Phone: [facility] Comment on above: Refill Request Start: 05-07-2024 ambulatory García Oh Facility:[facility] Start: 05-07-2024 End: 05-07-2024 ambulatory Elena ALVAREZ Facility:[facility] Start: 04-28-2024 End: 04-28-2024 ambulatory Kal Vazquez Facility:[facility] Start: 04-26-2024 End: 04-27-2024 Refill Kal Mora Vazquez DO Work Phone: [facility] Comment on above: Refill Request Start: 04-24-2024 End: 04-24-2024 Emergency department patient visit Toi Celeste Facility:[facility] Start: 04-09-2024 End: 04-09-2024 ambulatory García Oh Facility:[facility] Start: 02-26-2024 End: 02-26-2024 Telephone encounter Kal Vazquez DO Work Phone: [facility] [place] Start: 02-25-2024 End: 02-25-2024 ambulatory KAL VAZQUEZ Facility:[facility] Start: 02-19-2024 End: 02-20-2024 Telephone encounter Kal Vazquez DO Work Phone: [facility] [place] Start: 02-12-2024 Encounter for lissy mora adult medical examination without abnormal findings KAL VAZQUEZ [facility] Start: 02-12-2024 End: 02-12-2024 Patient encounter procedure Kal Vazquez DO Work Phone: [facility] Comment on above: Well adult exam (Susana juliane Dx); Need for influenza vaccination; LVH (left ventricular hypertrophy); Actinic keratosis; Gastroesophageal reflux disease without esophagitis; Coronary artery disease due to lipid rich plaque; Hyperlipidemia, unspecified hyperlipidemia type; Moderate persistent asthma without complication Start: 02-12-2024 End: 02-12-2024 Patient encounter status Kal Vazquez DO Work Phone: [facility] Start: 01-30-2024 End: 01-30-2024 Refill Kal Vazquez DO Work Phone: [facility] Comment on above: Refill Request Start: 01-21-2024 End: 01-21-2024 Refill Kal Vazquez DO Work Phone: [facility] Comment on above: Refill Request Start: 08-16-2023 End: 08-16-2023 Patient encounter procedure Padmini Lauren RECORD CLERK.STENCIL TYPIST Work Phone: [facility] Comment on above: Rhinosinusitis (Prim vianney Dx); Acute cough Start: 08-08-2023 Refill Rivas Chance MD Work Phone: [facility] Comment on above: Refill Request Start: 07-31-2023 End: 07-31-2023 Patient encounter procedure Nani Lackey RECORD CLERK.STENCIL TYPIST Work Phone: [facility] Comment on above: Moderate persistent asthma without complication (Primary Dx) Start: 07-27-2023 Refill Kal Greer son DO Work Phone: [facility] Comment on above: Refill Request Start: 04-18-2023 End: 02-18-2024 Telephone encounter Heavencarlo Copebhavesh Zamora PA-C Work Phone: [facility] Comment on above: [facility] Start: 04-05-2023 Non-patient / Non-visit Dr. Tori Vazquez Work Phone: [facility] Start: 04-05-2023 End: 04-05-[address] Kal Vazquez Work Phone: [facility] Work Phone: Start: 04-05-2023 End: 04-05-[address] Kal Vazquez Work Phone: [facility] Work Phone: Start: 03-20-2023 End: 03-20-2023 Patient encounter procedure Kal Vazquez DO Work Phone: [facility] Comment on above: Well adult exam ([facility] juliane Dx); Screening for colon cancer; Hyperlipidemia, unspecified hyperlipidemia type; Moderate persistent asthma without complication; Coronary artery disease due to lipid rich plaque; Gastroesophageal reflux disease without esophagitis Start: 03-20-2023 End: 03-20-2023 Patient encounter status Kal Vazquez DO Work Phone: [facility] Work Phone: Start: 03-13-2023 End: 03-13-[address] Kal Vazquez Work Phone: [facility] Work Phone: Start: 03-11-2023 ambulatory Kal hernandez DO Work Phone: [facility] Comment on above: My up coming [facility] Start: 03-11-2023 Patient encounter status Naga Vazquez DO Work Phone: [facility] Work Phone: Start: 03-11-2023 Telephone encounter Kal bunn DO Work Phone: [facility] Comment on above: Orders Start: 02-01-2023 Refill Kal hernandez DO Work Phone: [facility] Comment on above: Refill Request Start: 01-19-2023 Refill Nani Lackey RECORD CLERK.STENCIL TYPIST Work Phone: [facility] Comment on above: Refill Request Start: 01-12-2023 End: 01-12-2023 ambulatory [facility] [place] Work Phone: [facility] Start: 08-21-2022 End: 08-21-2022 Patient encounter procedure Kal Vazquez DO Work Phone: [facility] [facility] [place] Comment on above: Atypical squamoproli ferative skin lesion (Primary Dx); Moderate persistent asthma without complication Start: 07-30-2022 Refill Nani Lackey RECORD CLERK.STENCIL TYPIST Work Phone: [facility] [place] Comment on above: Refill Request Start: 06-05-2022 End: 06-05-2022 Patient encounter procedure Kal Vazquez DO Work Phone: [facility] [place] Comment on above: Atypical squamoproli ferative skin lesion (Primary Dx); Acute upper respiratory infection; Other acute sinusitis; Acute non-recurrent sinusitis of other sinus Start: 03-05-2022 End: 03-05-2022 Patient encounter procedure Silviano Mejia MD Work Phone: Orthopaedics Comment on above: Primary osteoarthrit is of first carpometacarpal joint of left hand (Primary Dx); Chronic pain of left thumb Start: 02-09-2022 [facility] Start: 02-05-2022 ambulatory Kal hernandez DO Work Phone: [facility] [place] Comment on above: xray Start: 02-05-2022 E-mail encounter fro m caregiver Kal Vazquez DO Work Phone: [facility] [place] Start: 02-02-2022 End: 02-02-2022 Subsequent hospital visit by physician Leslie [facility] [place] [facility] Work Phone: Radiology Comment on above: Chronic pain of left thumb [M79.645, G89.29] Start: 01-19-2022 End: 01-19-2022 Patient encounter procedure Kal Mora Vazquez DO Work Phone: [facility] [place] Comment on above: Well adult exam (Susana juliane Dx); Need for influenza vaccination; Need for pneumococcal vaccination; Chronic pain of left thumb; Hyperlipidemia, unspecified hyperlipidemia type; Coronary artery disease due to lipid rich plaque; Actinic keratosis Start: 01-19-2022 End: 01-19-2022 Patient encounter status Kal Rohan Vazquez DO Work Phone: Family [facility] [place] Start: 11-09-2021 Refill Kal hernandez DO Work Phone: [facility] [place] Comment on above: Refill Request Start: 07-10-2021 Refill Kal hernandez DO Work Phone: [facility] [place] Comment on above: Refill Request Start: 10-14-2018 Patient encounter status Naga Vazquez DO Work Phone: [facility] Work Phone: Procedures Date Procedure Procedure Detail Performing Clinician Start: 02-14-2024 Lipid 1996 panel - S connie or Plasma Heaven Zamora PA-C Work Phone: Start: 05-02-2023 Colonoscopy Kal perez DO Work Phone: Start: 04-05-2023 Cardiovascular stres s test using pharmacologic stress agent Dr. Kal Vazquez Work Phone: Start: 03-16-2023 Lipid 1996 panel - S connie or Plasma Kal Vazquez DO Work Phone: Start: 01-12-2023 INFLUENZA VACCINE, A GE 6 MO - 64 YR, QUADRIVALENT (AFLURIA, FLULAVAL, FLUZONE) Lev Munoz MD Work Phone: Start: 01-19-2022 INFLUENZA VACCINE QUADRIVALENT 6 MO - 64 YRS IM Kal Vazquez DO Work Phone: Start: 01-13-2022 Lipid 1996 panel - S connie or Plasma Immun[facility] [place] Work Phone: Start: 01-09-2021 Adult depression screening assessment Kal Vazquez DO Work Phone: Start: 08-28-2012 Colonoscopy Kal perez DO Work Phone: Start: 02-27-1999 History of placement of stent for coronary artery disease History of coronary artery stent placement Dr. Kal Vazquez Work Phone: Comment on above: [id number]-SEL-Fpqo RCA w/ 3.0 x 28 mm Duet Stent Plan of Treatment Date Care Activity Detail Author Start: 05-02-2033 Screening for malign ant neoplasm of colon [facility] Start: 09-27-2029 Urine microalbumin profile [facility] Start: 02-13-2029 Lipid panel Lipid Screening [facility] Start: 02-13-2029 Prostate specific an tigen measurement Prostate Cancer Screening Discussion [facility] Start: 03-16-2028 Lipid 1996 panel - S connie or Plasma Lipid Screening [facility] Start: 03-16-2028 Lipid panel Lipid Screening [facility] Start: 03-16-2028 Prostate Cancer Scre ening Discussion Prostate Cancer Screening Discussion [facility] Start: 03-16-2028 Prostate specific an tigen measurement Prostate Cancer Screening Discussion [facility] Start: 02-13-2027 Diabetes Screening Diabetes Screenin g [facility] Start: 01-13-2027 Lipid 1996 panel - S connie or Plasma Lipid Screening [facility] Start: 01-13-2027 LIPID SCREEN LIPID SCREEN [facility] Start: 01-13-2027 PROSTATE CANCER SCRE ENING DISCUSSION PROSTATE CANCER SCREENING DISCUSSION [facility] Start: 03-16-2026 Diabetes Screening Diabetes Screenin g [facility] Start: 01-14-2026 LIPID SCREEN LIPID SCREEN [facility] Start: 02-13-2025 Hepatitis B surface antibody level LDL Cholesterol [facility] Start: 02-11-2025 Annual PCP Team Assembly Line Supervisor luis eduardo Disease Visit Annual PCP Team Chronic Disease Visit [facility] Start: 02-11-2025 Covid-19 Vaccine ( season) Covid-19 Vaccine () [facility] Comment on above: Postponed from 12/14 (Declined at this time) Start: 01-13-2025 DIABETES SCREEN [facility]CREEN [facility] Start: 01-13-2025 Diabetes Screening Diabetes Screenin g [facility] Start: 01-08-2025 PROSTATE CANCER SCRE ENING DISCUSSION PROSTATE CANCER SCREENING DISCUSSION [facility] Start: 01-08-2025 End: 01-08-2025 Patient encounter procedure 01/08/2025 8:40 AM EDT Office Visit Family Baljit [facility] [address] [place], [place] [id number] Kal Vazquez DO [address] [facility] [place], [place] [id number] wellness exam and order labs prior to this visit [facility] [place] Comment on above: wellness exam and or chrystal labs prior to this visit Start: 12-23-2024 End: 03-24-2025 25-hydroxyvitamin D3 [Mass/volume] in Serum or Plasma VITAMIN D 25 HYDROXY Lab Routine Well adult exam Vitamin D deficiency Expected: 12/23/2024, Expires: 03/24/2025 [facility] Work Phone: Comment on above: Expected: 12/23/2024 , Expires: 03/24/2025 Start: 12-23-2024 End: 03-24-2025 CBC W Auto Differential panel - Blood COMPLETE BLOOD COUNT AND DIFFERENTIAL Lab Routine Well adult exam Hyperlipidemia, unspecified hyperlipidemia type Expected: 12/23/2024, Expires: 03/24/2025 [facility] Comment on above: Expected: 12/23/2024 , Expires: 03/24/2025 Start: 12-23-2024 End: 03-24-2025 Cobalamin (Vitamin B12) [Mass/volume] in Serum or Plasma VITAMIN B12 Lab Routine Well adult exam Expected: 12/23/2024, Expires: 03/24/2025 [facility] Comment on above: Expected: 12/23/2024 , Expires: 03/24/2025 Start: 12-23-2024 End: 03-24-2025 Comprehensive metabolic 2000 panel - Serum or Plasma COMPREHENSIVE METABOLIC PANEL Lab Routine Well adult exam Hyperlipidemia, unspecified hyperlipidemia type Expected: 12/23/2024, Expires: 03/24/2025 [facility] Comment on above: Expected: 12/23/2024 , Expires: 03/24/2025 Start: 12-23-2024 End: 03-24-2025 Hemoglobin A1c in Blood HEMOGLOBIN A1C Lab Routine Well adult exam Expected: 12/23/2024, Expires: 03/24/2025 [facility] Comment on above: Expected: 12/23/2024 , Expires: 03/24/2025 Start: 12-23-2024 End: 03-24-2025 Lipid 1996 panel - Serum or Plasma LIPID PANEL, FASTING Lab Routine Well adult exam Hyperlipidemia, unspecified hyperlipidemia type Expected: 12/23/2024, Expires: 03/24/2025 [facility] Comment on above: Expected: 12/23/2024 , Expires: 03/24/2025 Start: 12-23-2024 End: 03-24-2025 PSA/PROSTATE SPECIFIC ANTIGEN SCREENING PSA/PROSTATE SPECIFIC ANTIGEN SCREENING Lab Routine Well adult exam Expected: 12/23/2024, Expires: 03/24/2025 [facility] Comment on above: Expected: 12/23/2024 , Expires: 03/24/2025 Start: 12-23-2024 End: 03-24-2025 Thyrotropin [Units/volume] in Serum or Plasma THYROID STIMULATING HORMONE Lab Routine Well adult exam Expected: 12/23/2024, Expires: 03/24/2025 [facility] Comment on above: Expected: 12/23/2024 , Expires: 03/24/2025 Start: 12-23-2024 End: 03-24-2025 Urinalysis complete panel - Urine URINALYSIS, WITH MICROSCOPIC Lab Routine Well adult exam Expected: 12/23/2024, Expires: 03/24/2025 [facility] Comment on above: Expected: 12/23/2024 , Expires: 03/24/2025 Start: 12-14-2024 Influenza vaccination Influenza Vacc ine (#1) [facility] Start: 07-30-2024 Annual PCP Team Assembly Line Supervisor luis eduardo Disease Visit Annual PCP Team Chronic Disease Visit [facility] Start: 07-24-2024 Advance Directive Discussion Advance Directive Discussion [facility] Start: 03-20-2024 Annual PCP Team Assembly Line Supervisor luis eduardo Disease Visit Annual PCP Team Chronic Disease Visit [facility] Start: 03-20-2024 Covid-19 Vaccine ( season) Covid-19 Vaccine () [facility] Comment on above: Postponed from 12/14 (Declined at this time) Start: 03-16-2024 Hepatitis B surface antibody level LDL Cholesterol [facility] Start: 02-25-2024 End: 02-25-2024 Patient encounter procedure 02/25/2024 2:40 PM EST Office Visit Cardiology [address] [place] [address] LVH (left ventricular hypertrophy) [I51.7] Cardiology Comment on above: LVH (left ventricula r hypertrophy) [I51.7] Start: 02-14-2024 End: 02-14-2024 ambulatory 02/14/2024 9:15 AM EDT Results Only [facility] [address] [place] [address] [facility] Start: 02-12-2024 End: 02-12-2024 Patient encounter procedure 02/12/2024 4:00 PM EDT Office Visit Family Baljit [place] [address] [place] [address] Kal Vazquez, [address] [place] [address] Annual Physical Wellness check up Family [facility] [place] Comment on above: Annual Physical Well ness check up Start: 02-12-2024 End: 05-13-2024 25-hydroxyvitamin D3 [Mass/volume] in Serum or Plasma VITAMIN D 25 HYDROXY Lab Routine Well adult exam Expected: 02/12/2024, Expires: 05/13/2024 [facility] Comment on above: Expected: 02/12/2024 , Expires: 05/13/2024 Start: 02-12-2024 End: 05-13-2024 CBC W Auto Differential panel - Blood COMPLETE BLOOD COUNT AND DIFFERENTIAL Lab Routine Well adult exam Expected: 02/12/2024, Expires: 05/13/2024 [facility] Comment on above: Expected: 02/12/2024 , Expires: 05/13/2024 Start: 02-12-2024 End: 05-13-2024 Cobalamin (Vitamin B12) [Mass/volume] in Serum or Plasma VITAMIN B12 Lab Routine Well adult exam Expected: 02/12/2024, Expires: 05/13/2024 [facility] Comment on above: Expected: 02/12/2024 , Expires: 05/13/2024 Start: 02-12-2024 End: 05-13-2024 Comprehensive metabolic 2000 panel - Serum or Plasma COMPREHENSIVE METABOLIC PANEL Lab Routine Well adult exam Expected: 02/12/2024, Expires: 05/13/2024 [facility] Work Phone: Comment on above: Expected: 02/12/2024 , Expires: 05/13/2024 Start: 02-12-2024 End: 05-13-2024 Hemoglobin A1c in Blood HEMOGLOBIN A1C Lab Routine Well adult exam Expected: 02/12/2024, Expires: 05/13/2024 [facility] Comment on above: Expected: 02/12/2024 , Expires: 05/13/2024 Start: 02-12-2024 End: 05-13-2024 Lipid 1996 panel - Serum or Plasma LIPID PANEL BASIC Lab Routine Well adult exam Expected: 02/12/2024, Expires: 05/13/2024 [facility] Comment on above: Expected: 02/12/2024 , Expires: 05/13/2024 Start: 02-12-2024 End: 05-13-2024 Magnesium [Mass/volume] in Serum or Plasma MAGNESIUM Lab Routine Well adult exam Expected: 02/12/2024, Expires: 05/13/2024 [facility] Comment on above: Expected: 02/12/2024 , Expires: 05/13/2024 Start: 02-12-2024 End: 05-13-2024 PSA/PROSTATE SPECIFIC ANTIGEN SCREENING PSA/PROSTATE SPECIFIC ANTIGEN SCREENING Lab Routine Well adult exam Expected: 02/12/2024, Expires: 05/13/2024 [facility] Comment on above: Expected: 02/12/2024 , Expires: 05/13/2024 Start: 02-12-2024 End: 05-13-2024 Thyrotropin [Units/volume] in Serum or Plasma THYROID STIMULATING HORMONE Lab Routine Well adult exam Expected: 02/12/2024, Expires: 05/13/2024 [facility] Comment on above: Expected: 02/12/2024 , Expires: 05/13/2024 Start: 01-15-2024 DIABETES SCREEN DIABETES SCREEN [facility] Start: 12-15-2023 Covid-19 Vaccine ( season) Covid-19 Vaccine () [facility] Start: 12-15-2023 Influenza vaccination Influenza Vacc ine (#1) [facility] Start: 09-06-2023 Annual PCP Team Assembly Line Supervisor luis eduardo Disease Visit Annual PCP Team Chronic Disease Visit [facility] Start: 08-22-2023 ANNUAL PCP TEAM BATCH OPERATOR LUIS EDUARDO DISEASE VISIT ANNUAL PCP TEAM CHRONIC DISEASE VISIT [facility] Start: 06-05-2023 ANNUAL PCP TEAM BATCH OPERATOR LUIS EDUARDO DISEASE VISIT ANNUAL PCP TEAM CHRONIC DISEASE VISIT [facility] Start: 04-15-2023 Behavioral Health Screening Behavioral Health Screening [facility] Start: 01-19-2023 ANNUAL PCP TEAM BATCH OPERATOR LUIS EDUARDO DISEASE VISIT ANNUAL PCP TEAM CHRONIC DISEASE VISIT [facility] Start: 01-13-2023 Hepatitis B surface antibody level LDL CHOLESTEROL [facility] Start: 12-14-2022 Covid-19 Vaccine ( season) Covid-19 Vaccine () [facility] Start: 08-28-2022 Colonoscopy COLONOSCOPY [facility] Start: 08-28-2022 COLORECTAL CANCER SCREENING COLORECTAL CANCER SCREENING [facility] Start: 01-14-2022 Hepatitis B surface antibody level LDL CHOLESTEROL [facility] Start: 01-11-2022 ANNUAL PCP TEAM BATCH OPERATOR LUIS EDUARDO DISEASE VISIT ANNUAL PCP TEAM CHRONIC DISEASE VISIT [facility] Start: 01-09-2022 Adult depression scr eening assessment DEPRESSION SCREENING [facility] Start: 12-14-2021 Influenza vaccination INFLUENZA (#1) [facility] Start: 12-01-2020 COVID-19 VACCINE (2 - Booster for Frantz series) COVID-19 VACCINE (2 - Booster for Frantz series) [facility] Start: 2019 RSV Vaccine (1 - 1-d ose 60+ series) RSV Vaccine (1 - 1-dose 60+ series) [facility] Start: 2019 RSV Vaccine (1 - Ris k 60-74 years 1-dose series) RSV Vaccine (1 - Risk 60-74 years 1-dose series) [facility] Start: 12-25-2013 PNEUMOCOCCAL (2 - PCV) PNEUMOCOCCAL (2 - PCV) [facility] Start: 07-24-2004 COLOGUARD (FIT-DNA) COLOGUARD (FIT-D NA) [facility] Start: 07-24-[address] COLONOGRAPHY [facility] Start: 07-24-2004 FECAL OCCULT BLOOD FECAL OCCULT BLOO D [facility] Start: 07-24-2004 Screening for malign ant neoplasm of colon [facility] Start: 07-24-2004 SIGMOIDOSCOPY SIGMOIDOSCOPY [facility] Start: 07-24-1977 Anxiety Screening Anxiety Screening [facility] Start: 07-24-1977 Depression Screening Depression Scre ening [facility] Start: 07-24-1977 HIV SCREENING HIV SCREENING [facility] Start: 07-24-1977 HIV screening HIV Screening [facility] Start: 07-24-1977 SPIROMETRY SPIROMETRY [facility] End: 02-11-2025 Echocardiography ECHO Cardiology Routine LVH (left ventricular hypertrophy) 1 Occurrences starting 02/12/2024 until 02/11/2025 [facility] Comment on above: 1 Occurrences starti ng 02/12/2024 until 02/11/2025 End: 03-20-2024 Screening colonoscopy COLONOSCOPY SCREENING Endoscopy Routine Screening for colon cancer 1 Occurrences starting 03/20/2023 until 03/20/2024 [facility] Work Phone: Comment on above: 1 Occurrences starti ng 03/20/2023 until 03/20/2024 End: 02-18-2023 XR HAND GENERAL 3V PA/LAT/OBL LEFT XR HAND GENERAL 3V PA/LAT/OBL LEFT Radiology Routine Chronic pain of left thumb 1 Occurrences starting 01/19/2022 until 02/18/2023 [facility] Work Phone: Comment on above: 1 Occurrences starti ng 01/19/2022 until 02/18/2023 End: 02-02-2022 XR HAND GENERAL 3V PA/LAT/OBL LEFT [facility] Work Phone: Comment on above: 1 Occurrences starti ng 02/02/2022 until 02/02/2022 [facility] Immunizations Immunization Date Immunization Notes Care Provider John nguyen 02-12-2024 influenza, seasonal, injectable Kal Vazquez DO Work Phone: [facility] 02-12-2024 influenza virus vaccine, unspecified formulation Kal Vazquez DO Work Phone: [facility] 01-12-2023 influenza, injectabl e, quadrivalent, contains preservative Immunization [place] Work Phone: [facility] 01-12-2023 influenza virus vaccine, unspecified formulation Kal Vazquez DO Work Phone: [facility] 01-19-2022 pneumococcal Conjuga te, unspecified formulation Kal Vazquez DO Work Phone: [facility] Work Phone: 01-19-2022 influenza, injectabl e, quadrivalent, contains preservative Kal Vazquez DO Work Phone: [facility] 01-19-2022 pneumococcal (PCV20) vaccine, 20 valent (PREVNAR 20) Kal Vazquez DO Work Phone: [facility] 04-10-2021 zoster vaccine recombinant Kal Vazquez DO Work Phone: [facility] Work Phone: 01-11-2021 influenza, injectabl e, quadrivalent, contains preservative Kal Vazquez DO Work Phone: [facility] Work Phone: 01-11-2021 zoster vaccine recombinant Kal Vazquez DO Work Phone: [facility] Work Phone: 01-06-2020 influenza, injectabl e, quadrivalent, contains preservative Kal Vazquez DO Work Phone: [facility] Work Phone: 09-28-2019 tetanus toxoid, redu frank diphtheria toxoid, and acellular pertussis vaccine, adsorbed Kal Vazquez DO Work Phone: [facility] Work Phone: 01-28-2016 influenza, injectabl e, quadrivalent, contains preservative Kal Chaparison DO Work Phone: [facility] Work Phone: 01-14-2016 influenza, injectabl e, quadrivalent, preservative free Dr. Kal Vazquez Work Phone: [facility] 03-05-2015 influenza, seasonal, injectable Kal Vazquez DO Work Phone: [facility] 02-15-2014 influenza, seasonal, injectable Kal Vazquez DO Work Phone: [facility] 01-17-2013 influenza virus vaccine, unspecified formulation Kal Vazquez DO Work Phone: [facility] Work Phone: 12-25-2012 pneumococcal polysaccharide vaccine, 23 valent Kal Vazquez DO Work Phone: [facility] 12-25-2012 tetanus toxoid, redu frank diphtheria toxoid, and acellular pertussis vaccine, adsorbed Kal Vazquez DO Work Phone: [facility] Payers Date Payer Category Payer Medicare [id number] 2024 Self-pay [id number] 2019 [facility] PPO [id number] 2019 Unknown [employer] PPO [id number] 2019-Present [phone] [address] [place] [address] PPO [id number] 2019 Unknown [employer] PPO [id number] 2019-Present [phone] [address] [place] [address] PPO [id number] 2019 Unknown [id number] 2015 Unknown [id number] 2015 Unknown [id number] Private Health Insurance [facility]LY [facility] [id number] Unknown MED [employer] TPA [id number] Unknown [id number] Unknown [id number] Unknown [id number] Unknown [id number] Unknown [id number] Unknown [id number] Unknown [id number] Social History Date Type Detail Facility Start: 07-09-2011 End: 04-24-2024 Tobacco smoking status NHIS Never smoked tobacco [facility] Work Phone: Start: 07-09-2011 End: 01-19-2022 Tobacco use and exposure Smokeless tobacco non-user [facility] Work Phone: Start: 04-21-2021 End: 02-12-2024 Alcohol intake Current drinker of alcohol (finding) [facility] Start: 01-10-2021 End: 06-05-2022 History SDOH Alcohol Frequency 2 [facility] Start: 01-10-2021 End: 06-05-2022 History SDOH Alcohol Std Drinks 1 [facility] Start: 04-27-2016 History SDOH Alcohol Comment occasional [facility] Start: 01-10-2021 End: 06-05-2022 History SDOH Social Connections Phone 5 [facility] Start: 01-10-2021 End: 06-05-2022 History SDOH Social Connections Living 3 [facility] Start: 01-10-2021 End: 01-16-2022 History SDOH Physical Activity MPS 6 [facility] Start: 01-09-2021 Education 12 [facility] Start: 1960 Sex Assigned At Not on file C [facility] Start: 01-16-2022 End: 06-05-2022 History SDOH Social Connections Phone 4 [facility] Start: 01-09-2022 End: 03-05-2022 Exposure to SARS-CoV-2 (event) Not sure [facility] Start: 06-05-2022 History SDOH Social Connections [employer] 98 [facility] Start: 06-04-2022 End: 08-21-2022 History of Social function [facility] Start: 06-04-2022 End: 08-21-2022 Social connection and isolation panel [facility] Start: 03-16-2012 How often do you att end jainism or yarsanism services? Patient refused [facility] Do you belong to any clubs or organizations such as jainism groups, unions, fraternal or athletic groups, or school groups? No [facility] Are you now , , , , never or living with a partner? [facility] How often to you hav e a drink containing alcohol? 2-4 times a month [facility] How many standard dr inks containing alcohol do you have on a typical day? 1 or 2 [facility] How often do you hav e 6 or more drinks on 1 occasion? Less than monthly [facility] Do you feel stress - tense, restless, nervous, or anxious, or unable to sleep at night because your mind is troubled all the time - these days [OSQ] Not at all [facility] (I/We) worried wheth er (my/our) food would run out before (I/we) got money to buy more. Never true [facility] Start: 03-13-2023 [facility] Start: 08-18-2020 None [facility] Start: 1960 Sex Assigned At Male [facility] How often to you hav e a drink containing alcohol? Monthly or less [facility] How often do you hav e 6 or more drinks on 1 occasion? Never [facility] Goals Date Patient Goal Desired Activity /State Clinical Notes 02-27-1999 to 02-22-2025 Telephone Encounter - Anna Rogers [employer]TAIN [employer] - 12/23/2024 7:56 PM EDTTelephone Encounter - Anna Rogers [employer] - 12/23/2024 7:56 PM EDKal Boyer DO - 02/12/2024 5:56 PM EDT Note Date & Type Note Facility 02-22-2025 Note HNO ID: [id number] Author: CATARINA LAMAS RT([place]) Service: ? Author Type: Curer Acid Drum Type: Progress Notes Filed: 02/22/2025 14:48 Note Text: Radiology Service Progress Note PATIENT NAME: Teodoro Rizzo DATE OF SERVICE: February 22, 2025 TIME: 2:47 PM PATIENT IDENTITY VERIFICATION COMPLETED USING TWO (2) IDENTIFIERS: Name and Date of confirmed by patient verbally. FALL SCREENING: Has the patient had 2 falls in the last year or 1 fall with injury or currently using an Ambulatory Assistive Device (Walker, Cane, Wheelchair, Crutches, etc.)? No PATIENT GENDER DATA: Assigned male at PATIENT RELEVANT IMPLANT DATA REVIEWED: Not Applicable PATIENT PRESENTS WITH AN IMPLANTABLE OR ATTACHED FILTER TIP CATCHER: No RADIOLOGY DEPARTMENT: General X-ray: Exam(s) Completed: Upper Extremity X-Ray(s): Hand, bilateral PERIPHERAL IV DATA: Not applicable SIGNED BY: Catarina Lamas, RT(R) February 22, 2025 2:47 PM [facility] 01-18-2025 Progress note [facility] 01-08-2025 Note HNO ID: [id number] Author: KAL VAZQUEZ, DO Service: ? Author Type: Physician Type: Progress Notes Filed: 01/08/2025 09:27 Note Text: CC: Teodoro Rizzo is a 64 year old male who presents to the office for physical HPI: Overall he is doing well CAD, HTN, HPL, taking zocor medication as prescribed. BLOOD PRESSURE has been well controlled, no CP or dyspnea or dizziness/Lh. 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 Oh. 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 Hylton CAD (coronary artery disease) Dr. Oh Cat allergies GERD (gastroesophageal reflux disease) Hyperlipidemia Kidney stones Umbilical hernia without obstruction and without gangrene PAST SURGICAL HISTORY Procedure Laterality Date COLONOSCOPY FLX DX W/COLLJ SPEC WHEN PFRMD 08/28/2012 Colonoscopy ESOPHAGOGASTRODUODENOSCOPY TRANSORAL DIAGNOSTIC 08/28/2012 EGD LAP HERNIA REPAIR W/MESH 03/22/2016 ventral and umb LAPS REPAIR HERNIA EXCEPT INCAL/INGUN REDUCIBLE 03/22/2016 PAST SURGICAL HISTORY OF 1999 [facility] Social History: SOCIAL HISTORY[1] FAMILY HISTORY Problem Relation Age of Onset Hypertension Mother Lipids Mother Breast Cancer Mother Coronary Artery Disease Mother atrial fibrillation, 4v CABG age 76 Emphysema Father Coronary Artery Disease Father other (parkinsons's disease) Maternal Grandfather Colon Cancer Paternal Uncle Current Outpatient prescriptions: simvastatin (ZOCOR) 40 mg tablet Take 1 tablet by mouth daily at bedtime. omeprazole (PRILOSEC) 20 mg capsule Take 1 capsule by mouth daily before breakfast. 1/2 hr before meal. montelukast (SINGULAIR) 10 mg tablet Take 1 tablet by mouth daily at bedtime. budesonide (PULMICORT FLEXHALER) 180 mcg/actuation aepb Inhale 2 puffs as instructed two times a day. albuterol HFA (PROAIR HFA) 90 mcg/actuation inhaler Inhale 2 puffs as instructed every 4 hours as needed. predniSONE (DELTASONE) 10 mg tablet Take 4 tabs daily for 3 days, then 2 tabs daily for 3 days, then 1 tab daily for 3 days with food. MULTI-VITAMIN ORAL Take by mouth. ascorbic acid (VITAMIN C) 500 mg tablet Take 500 mg by mouth once daily. Aspirin 81 mg ORAL Tab Take 81 mg by mouth. Allergies: ALLERGIES No Known Allergies ROS: See HPI PE: 01/08/25 0826 BP: 140/86 Pulse: 60 Resp: 16 Temp: 36.1 ?C (97 ?F) TempSrc: Right Tympanic Weight: 90.3 kg (199 lb) Height: 164 cm (5' 4.57) Gen: AANDO, NAD, non-toxic appearing, Pleasant, cooperative HEENT: NT/AC, PERRLA, EOMs intact b/l, nares clear and patent b/l, pharynx without erythema, exudate or lesions. Uvula midline. MMM, EACs without erythema or debris. TMs pearly lo with intact landmarks b/l. Neck: supple, No cervical LAD, no thyromegaly, no carotid bruits CV: RRR, normal S1 and S2, no murmurs, no gallops, no rubs, Pulses 2+ and symmetric in UE and LE b/l Lungs: normal respiratory effort, CTA b/l, no wheezing or rhonchi or rales Abd: soft, NT, ND, +BS, no hepatosplenomegaly MS: pain bilateral carpal metacarpal joints Neuro: CN II-XII intact b/l, strength 5/5 b/l UE and LE, DTRs 2/4 UE and LE, sensation intact. Skin: warm, dry, intact ASSESSMENT/PLAN: 1. Well adult exam - ICD9: V70.0, ICD10: Z00.00 (primary diagnosis) - Counseled on healthy diet and regular exercise - Discussed need for and benefit of weight loss. BMI 33.56 kg/(m2) - Risks/benefits of prostate cancer screening discussed. screening PSA ordered and is normal 2. Hyperlipidemia, unspecified hyperlipidemia type - ICD9: 272.4, ICD10: E78.5 - Controlled - Continue current medications - Counseled on healthy diet and regular exercise - Discussed need for and benefit of weight loss. BMI 33.56 kg/(m2) - SIMVASTATIN 40 MG TABLET 3. Gastroesophageal reflux disease without esophagitis - ICD9: 530.81, ICD10: K21.9 - Discussed lifestyle modifications including losing weight, limiting caffeine, no meals three hours before sleep, and head of bed elevation - OMEPRAZOLE 20 MG CAPSULE,DELAYED RELEASE 4. Moderate persistent asthma without complication (HCC) - ICD9: 493.90, ICD10: J45.40 - Moderate persistent asthma stable - Continue current medications - Avoidance of triggers recommended - MONTELUKAST 10 MG TABLET 5. Need for influenza vaccination - ICD9: V04.81, ICD10: Z23 - INFLUENZA VACCINE, PRSV FREE, AGE 65+ YR, HIGH DOSE, TRIVALENT (FLUZONE HIGH-DOSE) 6. Chronic pain of both thumbs - ICD9: 729.5, 338.29, ICD10: M79.644, G89.29, M79.645 Referral for surgical opinion - CONSULT TO ORTHOPAEDICS 7. LVH (left ventricular hypertrophy) - ICD9: 429.3, ICD10: I51.7 Stable, hx of CAD, had recent (more content not included)... [facility] 12-23-2024 Telephone encounter Note Pt. informed via My Chart. [facility] 12-23-2024 Miscellaneous Notes Pt. informed via My Chart. Please let him know that labs and UA are ordered fasting Kal Vazquez DO Pt sends [employer] message below: Will you be ordering labs before my upcoming wellness physical(01/08) as has been customary in the past? Asking so that I am aware to be on the lookout for the order...Thank you! documented in this encounter [facility] 12-23-2024 Telephone encounter Note Please let him know that labs and UA are ordered fasting Kal Vazquez DO [facility] 12-23-2024 Telephone encounter Note Pt sends [employer] message below: Will you be ordering labs before my upcoming wellness physical(01/08) as has been customary in the past? Asking so that I am aware to be on the lookout for the order...Thank you! [facility] 12-23-2024 Telephone encounter Note See TE December 23, 2024 [facility] 12-23-2024 Miscellaneous Notes See TE December 23, 2024 documented in this encounter [facility] 09-25-2024 Telephone encounter Note rx sent for pulmicort Kal Vazquez DO [facility] 09-25-2024 Miscellaneous Notes rx sent for pulmicort Kal Vazquez DO documented in this encounter [facility] 09-25-2024 Telephone encounter Note Needs to go to [facility] 09-25-2024 Miscellaneous Notes Needs to go to [facility] documented in this encounter [facility] 08-25-2024 Telephone encounter Note See refill [facility] 08-25-2024 Miscellaneous Notes See refill documented in this encounter [facility] 08-25-2024 Telephone encounter Note Images from the original note were not included. Teodoro salgado Famp My Chart Rx Pool Nahomy Vazquez, I recently requested two refills, One for albuterol HFA... which I received, the other for Pulmicort flexhaler which I have not received and it appears was not ordered as of yet. I will be retiring on September 04 and will be changing Insurance carriers and would like to get this before that time as I'm sure the transition will be a bit of a mess....Thank you! [facility] 08-25-2024 Miscellaneous Notes Images from the original note were not included. Teodoro salgado Wstr [facility] My Chart Rx Pool Nahomy Vazquez, I recently requested two refills, One for albuterol HFA... which I received, the other for Pulmicort flexhaler which I have not received and it appears was not ordered as of yet. I will be retiring on September 04 and will be changing Insurance carriers and would like to get this before that time as I'm sure the transition will be a bit of a mess....Thank you! documented in this encounter [facility] 08-17-2024 Telephone encounter Note Prescription Refill Information The patient has been identified by name and date of : Yes Caregiver verified no other encounters exist for this prescription request: Yes Caregiver confirmed with patient/requestor that no other refills are due, in the near future, with this provider at this time: No The last office visit in the department: 02/12/24 Does the patient have a future office visit with this provider/department: No Requested Prescriptions Pending Prescriptions Disp Refills albuterol HFA (PROAIR HFA) 90 mcg/actuation inhaler 18 g 5 Sig: Inhale 2 puffs as instructed every 4 hours as needed. Anneliese Vela MA August 17, 2024 11:45 AM [facility] 08-17-2024 Miscellaneous Notes Prescription Refill Information The patient has been identified by name and date of : Yes Caregiver verified no other encounters exist for this prescription request: Yes Caregiver confirmed with patient/requestor that no other refills are due, in the near future, with this provider at this time: No The last office visit in the department: 02/12/24 Does the patient have a future office visit with this provider/department: No Requested Prescriptions Pending Prescriptions Disp Refills albuterol HFA (PROAIR HFA) 90 mcg/actuation inhaler 18 g 5 Sig: Inhale 2 puffs as instructed every 4 hours as needed. Anneliese Vela MA August 17, 2024 11:45 AM documented in this encounter [facility] 08-17-2024 Telephone encounter Note Prescription Refill Information The patient has been identified by name and date of : Yes Caregiver verified no other encounters exist for this prescription request: Yes Caregiver confirmed with patient/requestor that no other refills are due, in the near future, with this provider at this time: Yes The last office visit in the department: 02/12/24 Does the patient have a future office visit with this provider/department: Yes Requested Prescriptions Pending Prescriptions Disp Refills budesonide (PULMICORT FLEXHALER) 180 mcg/actuation aepb 3 each 3 Sig: Inhale 2 puffs as instructed two times a day. Sarah Zavaleta LPN August 17, 2024 8:25 AM [facility] 08-17-2024 Miscellaneous Notes Prescription Refill Information The patient has been identified by name and date of : Yes Caregiver verified no other encounters exist for this prescription request: Yes Caregiver confirmed with patient/requestor that no other refills are due, in the near future, with this provider at this time: Yes The last office visit in the department: 02/12/24 Does the patient have a future office visit with this provider/department: Yes Requested Prescriptions Pending Prescriptions Disp Refills budesonide (PULMICORT FLEXHALER) 180 mcg/actuation aepb 3 each 3 Sig: Inhale 2 puffs as instructed two times a day. Sarah Zavaleta LPN August 17, 2024 8:25 AM documented in this encounter [facility] 04-27-2024 Telephone encounter Note Prescription Refill Information The patient has been identified by name and date of : Yes Caregiver verified no other encounters exist for this prescription request: Yes Caregiver confirmed with patient/requestor that no other refills are due, in the near future, with this provider at this time: Yes The last office visit in the department: 02/12/2024 Does the patient have a future office visit with this provider/department: No Requested Prescriptions Pending Prescriptions Disp Refills montelukast (SINGULAIR) 10 mg tablet 90 tablet 3 Sig: Take 1 tablet by mouth daily at bedtime. Hailey Breen LPN April 27, 2024 9:32 AM [facility] 04-27-2024 Miscellaneous Notes Prescription Refill Information The patient has been identified by name and date of : Yes Caregiver verified no other encounters exist for this prescription request: Yes Caregiver confirmed with patient/requestor that no other refills are due, in the near future, with this provider at this time: Yes The last office visit in the department: 02/12/2024 Does the patient have a future office visit with this provider/department: No Requested Prescriptions Pending Prescriptions Disp Refills montelukast (SINGULAIR) 10 mg tablet 90 tablet 3 Sig: Take 1 tablet by mouth daily at bedtime. Hailey Breen LPN April 27, 2024 9:32 AM documented in this encounter [facility] 02-26-2024 Telephone encounter Note Patient aware of results. 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 Amber Dawkins LPN [facility] 02-26-2024 Miscellaneous Notes Patient aware of results. 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 Amber Dawkins LPN Please inform patient that his ECHO is normal/stable and unchanged from prior testing Kal Vazquez DO documented in this encounter [facility] 02-26-2024 Telephone encounter Note Please inform patient that his ECHO is normal/stable and unchanged from prior testing Kal Vazquez DO [facility] 02-20-2024 Telephone encounter Note Pt returned call and given provider's message below with verbalized understanding. [facility] 02-20-2024 Miscellaneous Notes Pt returned call and given provider's message below with verbalized understanding. Left message to return call Nafisa Urbina MA Please inform patient that overall his labs are stable except for low vitamin d. Need to increase by extra 1000 international unit(s) a day of vitamin D3 each day with a meal Kal Vazquez DO documented in this encounter [facility] 02-20-2024 Telephone encounter Note Left message to return call Nafisa Urbina MA [facility] 02-19-2024 Telephone encounter Note Please inform patient that overall his labs are stable except for low vitamin d. Need to increase by extra 1000 international unit(s) a day of vitamin D3 each day with a meal Kal Vazquez DO [facility] 02-12-2024 History of Present illness Narrative CC: Teodoro Rizzo is a 63 year old male who presents to the office to establish care. HPI: Overall he is doing well CAD, HTN, HPL, taking zocor medication as prescribed. BLOOD PRESSURE has been well controlled, no CP or dyspnea or dizziness/Lh. 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 Oh. Hx of LVH, hasn't had a recent ECHO HPL, taking statin therapy without SE from medication Asthma, use of pulmicort, tolerating well GERD, stable, taking omeprazole Plans to retire in August 2024 PAST MEDICAL HISTORY Diagnosis Date Allergic rhinitis Asthma Dr. Hylton CAD (coronary artery disease) Dr. Oh Cat allergies GERD (gastroesophageal reflux disease) Hyperlipidemia Kidney stones Umbilical hernia without obstruction and without gangrene PAST SURGICAL HISTORY Procedure Laterality Date COLONOSCOPY FLX DX W/COLLJ SPEC WHEN PFRMD 08/28/2012 Colonoscopy ESOPHAGOGASTRODUODENOSCOPY TRANSORAL DIAGNOSTIC 08/28/2012 EGD LAP HERNIA REPAIR W/MESH 03/22/2016 ventral and umb LAPS REPAIR HERNIA EXCEPT INCAL/INGUN REDUCIBLE 03/22/2016 PAST SURGICAL HISTORY OF 1998 [facility] Social History: Social History Tobacco Use Smoking status: Never Smokeless tobacco: Never Vaping Use Vaping status: Never Used Substance Use Topics Alcohol use: Yes Comment: occasional Drug use: No FAMILY HISTORY Problem Relation Age of Onset Hypertension Mother Lipids Mother Breast Cancer Mother Coronary Artery Disease Mother atrial fibrillation, 4v CABG age 76 Emphysema Father Coronary Artery Disease Father other (parkinsons's disease) Maternal Grandfather Colon Cancer Paternal Uncle Current Outpatient prescriptions: simvastatin (ZOCOR) 40 mg tablet Take 1 tablet by mouth daily at bedtime. omeprazole (PRILOSEC) 20 mg capsule Take 1 capsule by mouth daily before breakfast. 1/2 hr before meal. predniSONE (DELTASONE) 10 mg tablet Take 4 tabs daily for 3 days, then 2 tabs daily for 3 days, then 1 tab daily for 3 days with food. albuterol HFA (PROAIR HFA) 90 mcg/actuation inhaler Inhale 2 Puffs as instructed every 4 hours as needed. budesonide (PULMICORT FLEXHALER) 180 mcg/actuation aepb Inhale 2 Puffs as instructed two times a day. montelukast (SINGULAIR) 10 mg tablet Take 1 tablet by mouth daily at bedtime. MULTI-VITAMIN ORAL Take by mouth. ascorbic acid (VITAMIN C) 500 mg tablet Take 500 mg by mouth once daily. Aspirin 81 mg ORAL Tab Take 81 mg by mouth. Allergies: ALLERGIES No Known Allergies ROS: See HPI PE: 02/12/24 1550 BP: 122/80 Pulse: 64 Resp: 20 Temp: 36.2 C (97.1 F) TempSrc: Left Tympanic Weight: 87.5 kg (193 lb) Height: 161 cm (5' 3.39) Gen: A&O, NAD, non-toxic appearing, Pleasant, cooperative HEENT: NT/AC, PERRLA, EOMs intact b/l, nares clear and patent b/l, pharynx without erythema, exudate or lesions. Uvula midline. MMM, EACs without erythema or debris. TMs pearly lo with intact landmarks b/l. Neck: supple, No cervical LAD, no thyromegaly, no carotid bruits CV: RRR, normal S1 and S2, no murmurs, no gallops, no rubs, Pulses 2+ and symmetric in UE and LE b/l Lungs: normal respiratory effort, CTA b/l, no wheezing or rhonchi or rales Abd: soft, NT, ND, +BS, no hepatosplenomegaly MS: FROM all 4 extremities Neuro: CN II-XII intact b/l, strength 5/5 b/l UE and LE, DTRs 2/4 UE and LE, sensation intact. Skin: warm, dry, intact, actinic keratosis left forearm and right forearm No edema ASSESSMENT/PLAN: 1. Well adult exam - ICD9: V70.0, ICD10: Z00.00 (primary diagnosis) - Counseled on healthy diet and regular exercise - Discussed need for and benefit of weight loss. BMI 33.77 kg/(m^2) - COMPREHENSIVE METABOLIC PANEL - PSA/PROSTATE SPECIFIC ANTIGEN SCREENING - HEMOGLOBIN A1C - LIPID PANEL BASIC - COMPLETE BLOOD COUNT AND DIFFERENTIAL - THYROID STIMULATING HORMONE - MAGNESIUM - VITAMIN B12 - VITAMIN D 25 HYDROXY 2. Need for influenza vaccination - ICD9: V04.81, ICD10: Z23 - INFLUENZA VACCINE, AGE 6MO-64YR, TRIVALENT (AFLURIA, FLULAVAL, FLUVIRIN, FLUZONE) 3. LVH (left ventricular hypertrophy) - ICD9: 429.3, ICD10: I51.7 ECHO as ordered. - ECHO - PERFLUTREN LIPID MICROSPHERES 1.1 MG/ML INJECTION IN NS 10 ML - SODIUM CHLORIDE 0.9 % (FLUSH) INJECTION SYRINGE 4. Actinic keratosis - ICD9: 702.0, ICD10: L57.0 Treated x 2 in office with cryotherapy, tolerated well, no complications, aware of care at home 5. Gastroesophageal reflux disease without esophagitis - ICD9: 530.81, ICD10: K21.9 - Discussed lifestyle modifications including losing weight, limiting caffeine, no meals three hours before sleep, and head of bed elevation - Continue treatment with Prilosec 20 mg QD 6. Coronary artery disease due to lipid rich plaque - ICD9: 414.00, 414.3, ICD10: I25.10, I25.83 stable 7. Hyperlipidemia, unspecified hyperlipidemia type - ICD9: 272.4, ICD10: E78.5 - controlled - Continue current medications - Counseled on healthy diet and regular exercise - Discussed need for and benefit of weight loss. BMI 33.77 kg/(m^2) 8. Moderate persistent asthma without complication - ICD9: 493.90, ICD10: J45.40 - Moderate persistent asthma stable - Continue current medications - Avoidance of triggers recommended Kal Vazquez DO To ER if develops chest pain, shortness of breath, or severe worsening of symptoms. Discussed risks, benefits, alternatives, and potential side effects of medications. Patient expressed understanding and agreed with the plan. Kal Vazquez DO [address] [place] [address] documented in this encounter [facility] 01-30-2024 Telephone encounter Note Prescription Refill Information The patient has been identified by name and date of : Yes Caregiver verified no other encounters exist for this prescription request: Yes Caregiver confirmed with patient/requestor that no other refills are due, in the near future, with this provider at this time: Yes The last office visit in the department: 07-31-23 Does the patient have a future office visit with this provider/department: Yes Requested Prescriptions Pending Prescriptions Disp Refills simvastatin (ZOCOR) 40 mg tablet 90 tablet 3 Sig: Take 1 tablet by mouth daily at bedtime. Please use reference #[id number] if any question. Margoth Green January 30, 2024 8:19 AM [facility] 01-30-2024 Miscellaneous Notes Prescription Refill Information The patient has been identified by name and date of : Yes Caregiver verified no other encounters exist for this prescription request: Yes Caregiver confirmed with patient/requestor that no other refills are due, in the near future, with this provider at this time: Yes The last office visit in the department: 07-31-23 Does the patient have a future office visit with this provider/department: Yes Requested Prescriptions Pending Prescriptions Disp Refills simvastatin (ZOCOR) 40 mg tablet 90 tablet 3 Sig: Take 1 tablet by mouth daily at bedtime. Please use reference #[id number] if any question. Margoth Green January 30, 2024 8:19 AM documented in this encounter [facility] 01-21-2024 Telephone encounter Note The patient has been identified by name and date of : Yes Caregiver verified no other encounters exist for this prescription request: Yes Caregiver confirmed with patient/requestor that no other refills are due, in the near future, with this provider at this time: Yes The last office visit in the department: 07/31/2023 Does the patient have a future office visit with this provider/department: Yes 02/12/2024 Requested Prescriptions Pending Prescriptions Disp Refills omeprazole (PRILOSEC) 20 mg capsule 90 capsule 3 Sig: Take 1 capsule by mouth daily before breakfast. 1/2 hr before meal. Xin Riojas RN January 21, 2024 3:54 PM [facility] 01-21-2024 Miscellaneous Notes The patient has been identified by name and date of : Yes Caregiver verified no other encounters exist for this prescription request: Yes Caregiver confirmed with patient/requestor that no other refills are due, in the near future, with this provider at this time: Yes The last office visit in the department: 07/31/2023 Does the patient have a future office visit with this provider/department: Yes 02/12/2024 Requested Prescriptions Pending Prescriptions Disp Refills omeprazole (PRILOSEC) 20 mg capsule 90 capsule 3 Sig: Take 1 capsule by mouth daily before breakfast. 1/2 hr before meal. Xin Riojas RN January 21, 2024 3:54 PM documented in this encounter [facility] 08-16-2023 History of Present illness Narrative This note was created using [email or web address]. Subjective Teodoro Rizzo is a 63 year old male. 63 year old male with PMH GERD, asthma, hyperlipidemia and CAD presents for illness Acute onset 2 weeks ago +sinus pressure +ear pressure +cough +wheezing +post nasal drainage Endorses felt like ti was getting better, but then came back States over the past day he has had dental pain. Denies CP. Denies SOB or dyspnea Denies fever or chills Denies tobacco usage. The history is provided by the patient. No language instructor was used. Sinus Problem This is a new problem. The current episode started 1 to 4 weeks ago. The problem occurs constantly. The problem has been gradually worsening. Associated symptoms include congestion, coughing, headaches and swollen glands. Pertinent negatives include no abdominal pain, anorexia, arthralgias, change in bowel habit, chest pain, chills, diaphoresis, fatigue, fever, joint swelling, myalgias, nausea, neck pain, numbness, rash, sore throat, urinary symptoms, vertigo, visual change, vomiting or weakness. Nothing aggravates the symptoms. He has tried nothing for the symptoms. The treatment provided no relief. PAST MEDICAL HISTORY Diagnosis Date Allergic rhinitis Asthma Dr. Hylton CAD (coronary artery disease) Dr. Oh Cat allergies GERD (gastroesophageal reflux disease) Hyperlipidemia Kidney stones Umbilical hernia without obstruction and without gangrene PAST SURGICAL HISTORY Procedure Laterality Date COLONOSCOPY FLX DX W/COLLJ SPEC WHEN PFRMD 08/28/2012 Colonoscopy ESOPHAGOGASTRODUODENOSCOPY TRANSORAL DIAGNOSTIC 08/28/2012 EGD LAP HERNIA REPAIR W/MESH 03/22/2016 ventral and umb LAPS REPAIR HERNIA EXCEPT INCAL/INGUN REDUCIBLE 03/22/2016 PAST SURGICAL HISTORY OF 1999 [facility] ALLERGIES Patient has no known allergies. MEDICATIONS albuterol HFA (PROAIR HFA) 90 mcg/actuation inhaler Inhale 2 Puffs as instructed every 4 hours as needed. budesonide (PULMICORT FLEXHALER) 180 mcg/actuation aepb Inhale 2 Puffs as instructed two times a day. omeprazole (PRILOSEC) 20 mg capsule Take 1 capsule by mouth daily before breakfast. 1/2 hr before meal. montelukast (SINGULAIR) 10 mg tablet Take 1 tablet by mouth daily at bedtime. simvastatin (ZOCOR) 40 mg tablet Take 1 tablet by mouth daily at bedtime. MULTI-VITAMIN ORAL Take by mouth. ascorbic acid (VITAMIN C) 500 mg tablet Take 500 mg by mouth once daily. Aspirin 81 mg ORAL Tab Take 81 mg by mouth. predniSONE (DELTASONE) 10 mg tablet Take 4 tabs daily for 3 days, then 2 tabs daily for 3 days, then 1 tab daily for 3 days with food. doxycycline (VIBRA-TABS) 100 mg tablet Take 1 tablet by mouth two times a day for 7 days. FAMILY HISTORY Problem Relation Age of Onset Hypertension Mother Lipids Mother Breast Cancer Mother Coronary Artery Disease Mother atrial fibrillation, 4v CABG age 76 Emphysema Father Coronary Artery Disease Father other (parkinsons's disease) Maternal Grandfather Colon Cancer Paternal Uncle Social History Tobacco Use Smoking status: Never Smokeless tobacco: Never Vaping Use Vaping Use: Never used Substance Use Topics Alcohol use: Yes Comment: occasional Drug use: No Review of Systems Constitutional: Negative for chills, diaphoresis, fatigue and fever. HENT: Positive for congestion, postnasal drip, sinus pressure and sinus pain. Negative for ear discharge, ear pain and sore throat. Eyes: Negative for pain, discharge and itching. Respiratory: Positive for cough. Negative for apnea, choking and chest tightness. Cardiovascular: Negative for chest pain. Gastrointestinal: Negative for abdominal pain, anorexia, change in bowel habit, nausea and vomiting. Musculoskeletal: Negative for arthralgias, joint swelling, myalgias and neck pain. Skin: Negative for rash. Allergic/Immunologic: Negative for environmental allergies, food allergies and immunocompromised state. Neurological: Positive for headaches. Negative for vertigo, weakness and numbness. Hematological: Negative for adenopathy. Does not bruise/bleed easily. Psychiatric/Behavioral: Negative for agitation and behavioral problems. Objective BP 126/66 Pulse 68 Temp 36.7 C (98.1 F) Resp 16 Wt 87.5 kg (192 lb 14.4 oz) SpO2 97% BMI 32.53 kg/m Physical Exam Vitals and nursing note reviewed. Constitutional: General: He is not in acute distress. Appearance: Normal appearance. He is not ill-appearing, toxic-appearing or diaphoretic. HENT: Head: Normocephalic and atraumatic. Right Ear: External ear normal. Left Ear: External ear normal. Ears: Comments: Bilateral TM's erythematous Nose: Congestion present. No rhinorrhea. Mouth/Throat: Mouth: Mucous membranes are moist. Pharynx: Oropharynx is clear. Posterior oropharyngeal erythema present. No oropharyngeal exudate. Eyes: General: Right eye: No discharge. Left eye: No discharge. Extraocular Movements: Extraocular movements intact. Conjunctiva/sclera: Conjunctivae normal. Pupils: Pupils are equal, round, and reactive to light. Cardiovascular: Rate and Rhythm: Normal rate and regular rhythm. Pulses: Normal pulses. Heart sounds: Normal heart sounds. No murmur heard. No friction rub. No gallop. Pulmonary: Effort: Pulmonary effort is normal. No respiratory distress. Breath sounds: Normal breath sounds. No stridor. No wheezing, rhonchi or rales. Chest: Chest wall: No tenderness. Abdominal: General: Abdomen is flat. There is no distension. Palpations: Abdomen is soft. There is no mass. Tenderness: There is no abdominal tenderness. There is no guarding or rebound. Hernia: No hernia is present. Musculoskeletal: General: No swelling, tenderness, deformity or signs of injury. Normal range of motion. Cervical back: Normal range of motion and neck supple. No rigidity or tenderness. Right lower leg: No edema. Left lower leg: No edema. Lymphadenopathy: Cervical: Cervical adenopathy present. Skin: General: Skin is warm and dry. Capillary Refill: Capillary refill takes less than 2 seconds. Coloration: Skin is not jaundiced or pale. Findings: No bruising, lesion or rash. Neurological: General: No focal deficit present. Mental Status: He is alert and oriented to person, place, and time. Cranial Nerves: No cranial nerve deficit. Sensory: No sensory deficit. Motor: No weakness. Coordination: Coordination normal. Gait: Gait normal. Deep Tendon Reflexes: Reflexes normal. Psychiatric: Mood and Affect: Mood normal. Behavior: Behavior normal. Thought Content: Thought content normal. Assessment and Plan ASSESSMENT/PLAN: 1. Rhinosinusitis - ICD9: 473.9, ICD10: J32.9 (primary diagnosis) - Will begin treatment with as per antibiotic as written, see orders - The patient should also be given OTC cough and cold meds as needed and warm salt water gargles, throat lozenges and/or OTC throat spray as needed for the first 5-7 days of treatment. - Supportive care with plenty of fluids, rest, and analgesia prn. - Follow up in 3-5 days if symptoms persist or worsen. 2. Acute cough - ICD9: 786.2, ICD10: R05.1 No red flags Cough variant asthma RX Prednisone taper F/u with PCP Padmini Lauren APRN.STENCIL TYPIST documented in this encounter [facility] 08-08-2023 Telephone encounter Note The following approved medication requests have been transmitted electronically. Requested Prescriptions Pending Prescriptions Disp Refills albuterol HFA (PROAIR HFA) 90 mcg/actuation inhaler 18 g 5 Sig: Inhale 2 Puffs as instructed every 4 hours as needed. Hailey Benitez APRN.DEXIGRAPH OPERATOR [facility] 08-08-2023 Miscellaneous Notes The following approved medication requests have been transmitted electronically. Requested Prescriptions Pending Prescriptions Disp Refills albuterol HFA (PROAIR HFA) 90 mcg/actuation inhaler 18 g 5 Sig: Inhale 2 Puffs as instructed every 4 hours as needed. Hailey Benitez APRN.CNS Patient MyChart message requesting the following refill Refill(s) Requested: Requested Prescriptions Pending Prescriptions Disp Refills albuterol HFA (PROAIR HFA) 90 mcg/actuation inhaler 18 g 5 Sig: Inhale 2 Puffs as instructed every 4 hours as needed. ALLERGIES No Known Allergies (home) [phone] (cell) Last Office Visit Date: 07/31/2023 Last Distance Health Visit: Visit date not found Future Appointment: 02/12/2024 The patients preferred pharmacy has been captured for this encounter? yes Request is for script(s) to be escript to pharmacy. Juliane Chandra LPN documented in this encounter [facility] 08-08-2023 Telephone encounter Note Patient [employer] Game [employer] message requesting the following refill Refill(s) Requested: Requested Prescriptions Pending Prescriptions Disp Refills albuterol HFA (PROAIR HFA) 90 mcg/actuation inhaler 18 g 5 Sig: Inhale 2 Puffs as instructed every 4 hours as needed. ALLERGIES No Known Allergies (home) [phone] (cell) Last Office Visit Date: 07/31/2023 Last Distance Health Visit: Visit date not found Future Appointment: 02/12/2024 The patients preferred pharmacy has been captured for this encounter? yes Request is for script(s) to be escript to pharmacy. Juliane Chandra LPN [facility] 07-31-2023 History of Present illness Narrative Pt was told he needed to schedule this appointment to get refill of inhaler, despite wellness exam in March. Inhaler was refilled Saturday and at pharmacy. No concerns or complaints. Pt is seen annually as instructed. Pt not needing this appointment. No charge or assessment completed. documented in this encounter [facility] 07-29-2023 Miscellaneous Notes Called pt got him scheduled with you this Saturday at 4pm for a physical. Patient has been identified by name and date of : Yes, Provider Dr. Vazquez Date 07/29/23 Time 11:06 Patient phones for refill(s): Requested Prescriptions Pending Prescriptions Disp Refills budesonide (PULMICORT FLEXHALER) 180 mcg/actuation aepb 3 Each 3 Sig: Inhale 2 Puffs as instructed two times a day. Date of last office visit in primary care: 03/20/2023 Date of next office visit in primary care: Visit date not found Please advise. Thank you. Ilana Cochran LPN. documented in this encounter [facility] 04-19-2023 Telephone encounter Note Patient called stating he wishes to reschedule his procedure from 04/25 to 03/02/2024 Michelle Palencia [employer] [facility] 04-19-2023 Miscellaneous Notes Patient called stating he wishes to reschedule his procedure from 04/25 to 03/02/2024 Michelle Palencia [employer] 04/25/2023 COLON ASC documented in this encounter [facility] 04-18-2023 Telephone encounter Note 04/25/2023 COLON ASC [facility] 03-20-2023 History of Present illness Narrative CC: Teodoro Rizzo is a 62 year old male who presents to the office for physical HPI: Overall he is doing well CAD, HTN, HPL, taking zocor medication as prescribed. BLOOD PRESSURE has been well controlled, no CP or dyspnea or dizziness/Lh. 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 Oh. HPL, taking statin therapy PAST MEDICAL HISTORY Diagnosis Date Allergic rhinitis Asthma Dr. Hylton CAD (coronary artery disease) Dr. Oh Cat allergies GERD (gastroesophageal reflux disease) Hyperlipidemia Kidney stones PAST SURGICAL HISTORY Procedure Laterality Date COLONOSCOPY FLX DX W/COLLJ SPEC WHEN PFRMD 08/28/2012 Colonoscopy ESOPHAGOGASTRODUODENOSCOPY TRANSORAL DIAGNOSTIC 08/28/2012 EGD LAP HERNIA REPAIR W/MESH 03/22/2016 ventral and umb LAPS REPAIR HERNIA EXCEPT INCAL/INGUN REDUCIBLE 03/22/2016 PAST SURGICAL HISTORY OF 1998 [facility] Social History: Social History Tobacco Use Smoking status: Never Smokeless tobacco: Never Vaping Use Vaping Use: Never used Substance Use Topics Alcohol use: Yes Comment: occasional Drug use: No FAMILY HISTORY Problem Relation Age of Onset Hypertension Mother Lipids Mother Breast Cancer Mother Coronary Artery Disease Mother atrial fibrillation, 4v CABG age 76 Emphysema Father Coronary Artery Disease Father other (parkinsons's disease) Maternal Grandfather Colon Cancer Paternal Uncle Current Outpatient prescriptions: omeprazole (PRILOSEC) 20 mg capsule Take 1 capsule by mouth daily before breakfast. 1/2 hr before meal. montelukast (SINGULAIR) 10 mg tablet Take 1 tablet by mouth daily at bedtime. simvastatin (ZOCOR) 40 mg tablet Take 1 tablet by mouth daily at bedtime. budesonide (PULMICORT FLEXHALER) 180 mcg/actuation aepb Inhale 2 Puffs as instructed twice daily. albuterol HFA (PROAIR HFA) 90 mcg/actuation inhaler Inhale 2 Puffs as instructed every 4 hours as needed. MULTI-VITAMIN ORAL Take by mouth. ascorbic acid (VITAMIN C) 500 mg tablet Take 500 mg by mouth once daily. Aspirin 81 mg ORAL Tab Take 81 mg by mouth. Allergies: ALLERGIES No Known Allergies ROS: See HPI PE: 03/20/23 1457 BP: 120/80 Pulse: 64 Resp: 16 Temp: 36.1 C (97 F) TempSrc: Right Tympanic Weight: 88.5 kg (195 lb) Height: 164 cm (5' 4.57) Gen: A&O, NAD, non-toxic appearing, Pleasant, cooperative HEENT: NT/AC, PERRLA, EOMs intact b/l, nares clear and patent b/l, pharynx without erythema, exudate or lesions. Uvula midline. EACs without erythema or debris. TMs pearly lo with intact landmarks b/l. Neck: supple, No cervical LAD, no thyromegaly, no carotid bruits CV: RRR, normal S1 and S2, no murmurs, no gallops, no rubs, Pulses 2+ and symmetric in UE and LE b/l Lungs: normal respiratory effort, CTA b/l, no wheezing or rhonchi or rales Abd: soft, obese, NT, ND, +BS, no hepatosplenomegaly MS: FROM all 4 extremities Neuro: CN II-XII intact b/l, strength 5/5 b/l UE and LE, DTRs 2/4 UE and LE, sensation intact. Skin: warm, dry, intact, No rashes or lesions on exposed skin. No edema, normal pulses ASSESSMENT/PLAN: 1. Screening for colon cancer - ICD9: V76.51, ICD10: Z12.11 (primary diagnosis) - COLONOSCOPY SCREENING 2. Well adult exam - ICD9: V70.0, ICD10: Z00.00 - Counseled on healthy diet and regular exercise - Colorectal cancer screening recommended - agrees to Colonoscopy 3. Hyperlipidemia, unspecified hyperlipidemia type - ICD9: 272.4, ICD10: E78.5 - Controlled - Continue current medications - Counseled on healthy diet and regular exercise - SIMVASTATIN 40 MG TABLET 4. Moderate persistent asthma without complication - ICD9: 493.90, ICD10: J45.40 - Moderate persistent asthma stable - Continue current medications - Avoidance of triggers recommended - MONTELUKAST 10 MG TABLET - PULMICORT FLEXHALER 180 MCG/ACTUATION BREATH ACTIVATED 5. Coronary artery disease due to lipid rich plaque - ICD9: 414.00, 414.3, ICD10: I25.10, I25.83 Stable, f/u with Dr. Oh 6. Gastroesophageal reflux disease without esophagitis - ICD9: 530.81, ICD10: K21.9 - Discussed lifestyle modifications including losing weight, limiting caffeine, no meals three hours before sleep, and head of bed elevation - OMEPRAZOLE 20 MG CAPSULE,DELAYED RELEASE Kal L Vazquez, DO To ER if develops chest pain, shortness of breath, or severe worsening of symptoms. Discussed risks, benefits, alternatives, and potential side effects of medications. Patient expressed understanding and agreed with the plan. Kal Vazquez DO [address] [place] [address] documented in this encounter [facility] 03-14-2023 Telephone encounter Note Left message for patient letting him know his fasting labs have been ordered. Jennifer Lynch [facility] 03-14-2023 Miscellaneous Notes Left message for patient letting him know his fasting labs have been ordered. Jennifer Lynch Please inform patient that fasting labs are ordered Kal Vazquez DO Images from the original note were not included. Teodoro Rizzo [facility] My Chart Rx Pool Will you be ordering labs for me before my Mar.20 wellness appointment? If so I will need to get them drawn on Saturday.2. Thank You documented in this encounter [facility] 03-13-2023 Telephone encounter Note Please inform patient that fasting labs are ordered Kal Vazquez DO [facility] 03-11-2023 Miscellaneous Notes See telephone note documented in this encounter [facility] 03-11-2023 Telephone encounter Note Images from the original note were not included. Teodoro Rizzo tr [facility] My Chart Rx Pool Will you be ordering labs for me before my Mar.20 wellness appointment? If so I will need to get them drawn on Saturday2. Thank You [facility] 02-01-2023 Miscellaneous Notes Requested Prescriptions Pending Prescriptions Disp Refills omeprazole (PRILOSEC) 20 mg capsule 90 capsule 0 Sig: Take 1 capsule by mouth daily before breakfast. 1/2 hr before meal. [facility] 09/05/2022 NOV not scheduled at this time Nafisa Urbina documented in this encounter [facility] 01-21-2023 Miscellaneous Notes Patient has been identified by name and date of : Yes Patient phones for refill(s): Requested Prescriptions Pending Prescriptions Disp Refills simvastatin (ZOCOR) 40 mg tablet 90 tablet 3 Sig: Take 1 tablet by mouth daily at bedtime. Refused Prescriptions Disp Refills montelukast (SINGULAIR) 10 mg tablet 90 tablet 3 Sig: Take 1 tablet by mouth daily at bedtime. Date of last office visit in primary care: [facility] 09/05/22 NOV 03/20/23 Last 2 Encounter Wt Readings: Date: Wt: 09/05/2022 87.1 kg (192 lb) 08/21/2022 87.5 kg (193 lb) Please advise. Thank you. MAT Cook documented in this encounter [facility] 08-21-2022 History of Present illness Narrative CC: Teodoro Rizzo is a 62 year old male who presents to the office for skin lesion concern HPI: Skin lesion, middle of bridge of nose. Noticed it is changing/growing. + hx of sun exposure in the past and pre cancerous lesions. Asthma. Needing to change rx back to pulmicort flexhaler due to insurance coverage changes. PAST MEDICAL HISTORY Diagnosis Date Allergic rhinitis Asthma Dr. Hylton CAD (coronary artery disease) Dr. Oh Cat allergies GERD (gastroesophageal reflux disease) Hyperlipidemia Kidney stones PAST SURGICAL HISTORY Procedure Laterality Date COLONOSCOPY FLX DX W/COLLJ SPEC WHEN PFRMD 08/28/2012 Colonoscopy ESOPHAGOGASTRODUODENOSCOPY TRANSORAL DIAGNOSTIC 08/28/2012 EGD LAP HERNIA REPAIR W/MESH 03/22/2016 ventral and umb LAPS REPAIR HERNIA EXCEPT INCAL/INGUN REDUCIBLE 03/22/2016 PAST SURGICAL HISTORY OF 1998 [facility] Current Outpatient Medications Medication Sig omeprazole (PRILOSEC) 20 mg capsule Take 1 capsule by mouth daily before breakfast. 1/2 hr before meal. fluticasone (FLOVENT HFA) 220 mcg/actuation inhaler Inhale 1 Puff as instructed twice daily. montelukast (SINGULAIR) 10 mg tablet Take 1 tablet by mouth daily at bedtime. simvastatin (ZOCOR) 40 mg tablet Take 1 tablet by mouth daily at bedtime. albuterol HFA (PROAIR HFA) 90 mcg/actuation inhaler Inhale 2 Puffs as instructed every 4 hours as needed. MULTI-VITAMIN ORAL Take by mouth. ascorbic acid (VITAMIN C) 500 mg tablet Take 500 mg by mouth once daily. Aspirin 81 mg ORAL Tab Take 81 mg by mouth. budesonide (PULMICORT FLEXHALER) 180 mcg/actuation aepb Inhale 2 Puffs as instructed twice daily. No current facility-administered medications for this visit. ALLERGIES No Known Allergies Social History Tobacco Use Smoking status: Never Smokeless tobacco: Never Vaping Use Vaping Use: Never used Substance Use Topics Alcohol use: Yes Comment: occasional Drug use: No ROS: See HPI PE: BP 120/80 Pulse 64 Temp (Src) 96.6 (Left Tympanic) Resp 16 Wt 193 lb (87.5kg) Gen: A&OX3, NAD, non-toxic appearing Skin: squamo proliferative skin lesion midline on mid bridge of nose with mild ulceration at top of lesion ASSESSMENT/PLAN: 1. Atypical squamoproliferative skin lesion - ICD9: 239.2, ICD10: D49.2 (primary diagnosis) Treated in office today with cryotherapy with his permission, he tolerated well, he is aware of post procedure wound care at home, f/u in office in 2 weeks to make sure this lesion is resolved/fully treated. 2. Moderate persistent asthma without complication - ICD9: 493.90, ICD10: J45.40 Need for change of inhaler due to insurance coverage. - Avoidance of triggers recommended Kal Vazquez DO Return if no improvement. Follow up with Kal Vazquez DO. To ER if develops chest pain, shortness of breath Discussed risks, benefits, alternatives, and potential side effects of medications. Patient/Guardian expressed understanding and agreed with the plan. See patient instructions. Kal Vazquez DO [address] [place] [address] documented in this encounter [facility] 07-30-2022 Miscellaneous Notes Patient phones requesting refills as follows: Requested Prescriptions Pending Prescriptions Disp Refills omeprazole (PRILOSEC) 20 mg capsule 90 capsule 0 Sig: Take 1 capsule by mouth daily before breakfast. 1/2 hr before meal. [facility]-01/19/22 Labs-01/13/22 NOV-none med filled 04/26/22 Please review and advise. Mara Benjamin LPN documented in this encounter [facility] 06-05-2022 History of Present illness Narrative CC: Teodoro Rizzo is a 61 year old male who presents to the office for skin lesion concerns HPI: Skin lesion, right mid cheek, present for about 1 month, hx of skin CA and pre cancers in the past. No known injury PAST MEDICAL HISTORY Diagnosis Date Allergic rhinitis Asthma Dr. Hylton CAD (coronary artery disease) Dr. Oh Cat allergies GERD (gastroesophageal reflux disease) Hyperlipidemia Kidney stones PAST SURGICAL HISTORY Procedure Laterality Date COLONOSCOPY FLX DX W/COLLJ SPEC WHEN PFRMD 08/28/2012 Colonoscopy ESOPHAGOGASTRODUODENOSCOPY TRANSORAL DIAGNOSTIC 08/28/2012 EGD LAP HERNIA REPAIR W/MESH 03/22/2016 ventral and umb LAPS REPAIR HERNIA EXCEPT INCAL/INGUN REDUCIBLE 03/22/2016 PAST SURGICAL HISTORY OF 1998 [facility] Current Outpatient Medications Medication Sig montelukast (SINGULAIR) 10 mg tablet Take 1 tablet by mouth daily at bedtime. omeprazole (PRILOSEC) 20 mg capsule Take 1 capsule by mouth daily before breakfast. 1/2 hr before meal. simvastatin (ZOCOR) 40 mg tablet Take 1 tablet by mouth daily at bedtime. albuterol HFA (PROAIR HFA) 90 mcg/actuation inhaler Inhale 2 Puffs as instructed every 4 hours as needed. MULTI-VITAMIN ORAL Take by mouth. ascorbic acid (VITAMIN C) 500 mg tablet Take 500 mg by mouth once daily. Aspirin 81 mg ORAL Tab Take 81 mg by mouth. fluticasone (FLOVENT HFA) 220 mcg/actuation inhaler Inhale 1 Puff as instructed twice daily. amoxicillin-clavulanic acid (AUGMENTIN) 875-125 mg per tablet Take 1 tablet by mouth twice daily for 10 days. budesonide (PULMICORT FLEXHALER) 180 mcg/actuation aepb Inhale 2 Puffs as instructed twice daily. No current facility-administered medications for this visit. ALLERGIES No Known Allergies Social History Tobacco Use Smoking status: Never Smokeless tobacco: Never Vaping Use Vaping Use: Never used Substance Use Topics Alcohol use: Yes Comment: occasional Drug use: No ROS: See HPI PE: BP 124/84 Pulse 64 Temp (Src) 97 (Right Tympanic) Resp 16 Wt 193 lb (87.5kg) Gen: A&OX3, NAD, non-toxic appearing Skin: exophytic squamo proliferative skin lesion at 3-4 mm size and round on right mid cheek on face ASSESSMENT/PLAN: 1. Atypical squamoproliferative skin lesion - ICD9: 239.2, ICD10: D49.2 (primary diagnosis) Treated in office today with cryotherapy, tolerated well, no complications. He is aware of care at home post procedure and f/u in office if doesn't resolve. 2. Acute upper respiratory infection - ICD9: 465.9, ICD10: J06.9 - Discussed viral etiology and rationale for treatment. - Symptomatic treatment with prn analgesia - Supportive care with fluids and rest - AMOXICILLIN 875 MG-POTASSIUM CLAVULANATE 125 MG TABLET 3. Other acute sinusitis - ICD9: 461.8, ICD10: J01.80 - AMOXICILLIN 875 MG-POTASSIUM CLAVULANATE 125 MG TABLET 4. Acute non-recurrent sinusitis of other sinus - ICD9: 461.8, ICD10: J01.80 Kal Vazquez DO Return if no improvement. Follow up with Kal Vazquez DO. To ER if develops chest pain, shortness of breath Discussed risks, benefits, alternatives, and potential side effects of medications. Patient/Guardian expressed understanding and agreed with the plan. See patient instructions. Kal Vazquez DO [address] [place] [address] documented in this encounter [facility] 03-05-2022 History of Present illness Narrative PT ASSESSMENT - CASTING ROOM Teodoro presents for Application of brace. Applied medium Actimove Rhizo Forte brace to Left hand Patient has been instructed in Care and proper application of brace.. Nazia Mohan Ma Silviano Mejia MD Department of Orthopaedics Orthopaedics [address] [facility] [address] Dept: [phone] Dept March 05, 2022 CHIEF COMPLAINT: New and Pain of the Left Hand HPI Patient here today for left thumb pain x 8 years. States it is getting progressively worse. 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 X-ray at [facility] on 02/02/2022. ASSESSMENT: M79.645, G89.29 Chronic pain of left thumb PLAN: We had a lengthy discussion about his thumb and management of CMC arthritis. He would like to try a brace for now. We did review possible surgery in the future. FOLLOW UP INSTRUCTIONS: As needed. Mr. Teodoro Rizzo was advised as to contrast therapies and/or to take analgesics/anti-inflammatories as needed and all contraindications were reviewed. OBJECTIVE: Mr. Teodoro Rizzo is a pleasant 61 year old in no apparent distress. Gen:There were no vitals taken for this visit. nl development, non obese, no deformities ENT: Normocephalic, normal hearing, moist mucosa CV: Pulses:Radial= 2+ and symmetric, capillary refill < 2 secs, no peripheral edema/varicosities Skin: no rash, bruising or lesions. Good turgor. Psych: cooperative and appropriate, alert and oriented x 3, good mood and affect. Musculoskeletal: Swelling at the base of the thumb consistent with osteoarthritis. There is some tenderness to palpation at the joint. There is pain and crepitance on motion. No hyperextension at the MCP joint. No catching at the IP joint. IMAGING: IMPRESSION: Degenerative change with joint space narrowing first metacarpal carpal and triscaphe joints. Findings compatible with osteoarthritis. No erosive process. Loading Unit Tool Setter: YUN Transcribe Date/Time: Feb 05 2022 10:29A Dictated by : GAYATRI DEVI MD This examination was interpreted and the report reviewed and electronically signed by: GAYATRI DEVI MD on Feb 05 2022 10:31AM EST Results-Findings * * *Final Report* * * DATE OF EXAM: Feb 02 2022 11:39AM [id number] [id number] - XR HAND 3V PA/LAT/OBL LT / PROCEDURE REASON: multiple diagnoses * * * * Physician Interpretation * * * * EXAMINATION: XR HAND 3V PA/LAT/OBL LT HISTORY: Chronic pain of left thumb. Negative trauma. TECHNIQUE: XR HAND 3V PA/LAT/OBL LT Laterality: LEFT Number of different views (projections): 3 M: [id number] COMPARISON: There are no prior relevant examinations available for comparison within the [facility]. RESULT: AP, oblique and lateral radiographs of the left hand show no acute osseous or articular process. Degenerative change with asymmetric joint space narrowing and marginal spurring is noted at the first metacarpal carpal articulation. There is mild narrowing of the triscaphe joint as well. Joint spaces are otherwise preserved and there are no erosive or bony destructive changes. Supporting Subjective Information Below: Past Medical History: PAST MEDICAL HISTORY Diagnosis Date Allergic rhinitis Asthma Dr. Hylton CAD (coronary artery disease) Dr. Oh Cat allergies GERD (gastroesophageal reflux disease) Hyperlipidemia Kidney stones Past Surgical History: PAST SURGICAL HISTORY Procedure Laterality Date COLONOSCOPY FLX DX W/COLLJ SPEC WHEN PFRMD 08/28/2012 Colonoscopy ESOPHAGOGASTRODUODENOSCOPY TRANSORAL DIAGNOSTIC 08/28/2012 EGD LAP HERNIA REPAIR W/MESH 03/22/2016 ventral and umb LAPS REPAIR HERNIA EXCEPT INCAL/INGUN REDUCIBLE 03/22/2016 PAST SURGICAL HISTORY OF 1999 PTCA Family History: FAMILY HISTORY Problem Relation Age of Onset Hypertension Mother Lipids Mother Breast Cancer Mother Coronary Artery Disease Mother atrial fibrillation, 4v CABG age 76 Emphysema Father Coronary Artery Disease Father other (parkinsons's disease) Maternal Grandfather Social History: Social History Tobacco Use Smoking status: Never Smokeless tobacco: Never Substance Use Topics Alcohol use: Yes Comment: occasional Drug use: No Medications: Current Outpatient Medications Medication Sig omeprazole (PRILOSEC) 20 mg capsule Take 1 capsule by mouth daily before breakfast. 1/2 hr before meal. simvastatin (ZOCOR) 40 mg tablet Take 1 tablet by mouth daily at bedtime. montelukast (SINGULAIR) 10 mg tablet Take 1 tablet by mouth daily at bedtime. fluticasone (FLOVENT HFA) 220 mcg/actuation inhaler Inhale 1 Puff as instructed twice daily. albuterol HFA (PROAIR HFA) 90 mcg/actuation inhaler Inhale 2 Puffs as instructed every 4 hours as needed. MULTI-VITAMIN ORAL Take by mouth. ascorbic acid (VITAMIN C) 500 mg tablet Take 500 mg by mouth once daily. Aspirin 81 mg ORAL Tab Take 81 mg by mouth. budesonide (PULMICORT FLEXHALER) 180 mcg/actuation aepb Inhale 2 Puffs as instructed twice daily. No current facility-administered medications for this visit. Allergies: Patient has no known allergies. ROS: General (negative for fatigue, malaise, weight loss/gain) HEENT (negative for headache, earache, recent vision changes, sinus pain, sore throat) Respiratory (no recent shortness of breath, hemoptysis) CV (negative for chest tightness, palpitations) Musculoskeletal (see HPI) Psych (no depression, anxiety) REFERRING PHYSICIAN: Mr. Teodoro Rizzo was referred to me for consultation by the following physician. This consultation note will be sent to the following physician by either mail or electronic medical record. Kal Vazquez [address] [facility] [address] Kal Vazquez DO [address] [facility] [id number] Silviano Mejia MD documented in this encounter [facility] 02-09-2022 History of Present illness Narrative POPULATION HEALTH NAVIGATION OUTREACH Action/FYI Left voicemail Pt identified by name and : NO Outreach Outcome/Action Unable to reach patient: Left message MyChart message sent Did you use a PCP flex slot to schedule this appointment? No Reason for Outreach Care Gap or Scheduling/Wellness visits Payer: Payor: DONNA / Plan: [employer] ACCESS PPO / Product Type: PPO / Care Gap Reviewed:: Specialty Scheduling Reminder: Reminder note to check Health Maintenance for items below Health Maintenance items due: SPIROMETRY Never done HIV SCREENING Never done COVID-19 VACCINE(2 - Booster for Frantz series) due on 12/01/2020 Message Sent to Practice: No Navigation Signature: Dena Diaz February 09, 2022 2:18 PM documented in this encounter [facility] 02-02-2022 History of Present illness Narrative Radiology Service Progress Note PATIENT NAME: Teodoro Rizzo DATE OF SERVICE: February 02, 2022 TIME: 11:37 AM PATIENT IDENTITY VERIFICATION COMPLETED USING TWO (2) IDENTIFIERS: Name and Date of confirmed by patient verbally. FALL SCREENING: Has the patient had 2 falls in the last year or 1 fall with injury or currently using an Ambulatory Assistive Device (Walker, Cane, Wheelchair, Crutches, etc.)? No PATIENT GENDER DATA: Male PATIENT RELEVANT IMPLANT DATA REVIEWED: Not Applicable RADIOLOGY DEPARTMENT: General X-ray: Exam(s) Completed: Upper Extremity X-Ray(s): Hand, left PERIPHERAL IV DATA: Not applicable SIGNED BY: RT Enid(R) February 02, 2022 11:37 AM documented in this encounter [facility] 01-19-2022 Instructions Kal Vazquez DO - 01/19/2022 3:08 PM EDT MCP joint arthritis Orthopedics- Dr. Mendez or Dr. Mejia, [facility] documented in this encounter [facility] 01-19-2022 History of Present illness Narrative Chief Complaint Patient presents with: Physical Immunizations: Flu vaccination HPI Teodoro Rizzo is a 61 year old male who presents here today for physical. Denies any bowel, Gi, or urinary issues. No chest pains, dizziness, or SOB. GERD: Sx controlled on Prilosec 20 mg daily. Lipid & CAD: Taking Zocor 40 mg daily, tolerating well, no myalgia or gi upset. Taking 81 mg Aspirin daily. 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 Oh yearly in the Spring Asthma: Stable on current regiment of Singulair 10 mg daily, Flovent inhaler BID, Proair inhaler every 4 hours prn, and Pulmicort 2 puffs BID. Does not follow with any Safety Lead. Skin lesion concerns on forearms Left thumb pain, present with movement and use, no known injuries. Symptoms x years but seems to be worsening. No swelling or skin changes. PSA (ng/mL) Date Value 10/04/2018 0.81 PSA Screening (ng/mL) Date Value 01/13/2022 0.95 01/14/2021 0.69 01/09/2020 0.81 07/04/2012 0.67 Cholesterol, Total Date Value Ref Range Status 01/13/2022 168 <200 mg/dL Final Comment: <200 mg/dL, Desirable 200-239 mg/dL, Borderline high >239 mg/dL, High HDL Cholesterol Date Value Ref Range Status 01/13/2022 52 >39 mg/dL Final Comment: 40-59 mg/dL, Acceptable >59 mg/dL, High: Negative risk factor for coronary heart disease <40 mg/dL, Low: Positive risk factor for coronary heart disease LDL Cholesterol Date Value Ref Range Status 01/13/2022 92 <100 mg/dL Final Comment: <100 mg/dL, Optimal 100-129 mg/dL, Near optimal/above optimal 130-159 mg/dL, Borderline high 160-189 mg/dL, High >189 mg/dL, Very high Secondary prevention optimal LDL Cholesterol levels are recommended to be < 70 mg/dL Triglyceride Date Value Ref Range Status 01/13/2022 122 <150 mg/dL Final Comment: <150 mg/dL, Normal 150-199 mg/dL, Borderline high 200-499 mg/dL, High >499 mg/dL, Very high Glucose (mg/dL) Date Value 01/13/2022 86 01/14/2021 80 Potassium (mmol/L) Date Value 01/13/2022 4.2 01/14/2021 4.2 Sodium (mmol/L) Date Value 01/13/2022 141 01/14/2021 141 Chloride (mmol/L) Date Value 01/13/2022 107 01/14/2021 106 CO2 (mmol/L) Date Value 01/13/2022 23 01/14/2021 23 Creatinine (mg/dL) Date Value 01/13/2022 0.84 01/14/2021 0.92 BUN (mg/dL) Date Value 01/13/2022 11 01/14/2021 12 Anion Gap (mmol/L) Date Value 01/13/2022 11 01/14/2021 12 Calcium (mg/dL) Date Value 01/14/2021 9.2 Calcium, Total (mg/dL) Date Value 01/13/2022 9.4 Protein, Total (g/dL) Date Value 01/13/2022 6.7 01/14/2021 6.8 Albumin (g/dL) Date Value 01/13/2022 4.4 01/14/2021 4.4 Bilirubin, Total (mg/dL) Date Value 01/13/2022 0.8 01/14/2021 1.0 Alkaline Phosphatase (U/L) Date Value 01/13/2022 75 01/14/2021 75 AST (U/L) Date Value 01/13/2022 30 01/14/2021 30 ALT (U/L) Date Value 01/13/2022 27 01/14/2021 30 Hemoglobin (g/dL) Date Value 01/13/2022 16.1 01/14/2021 16.0 Hematocrit (%) Date Value 01/13/2022 49.1 01/14/2021 50.1 WBC (k/uL) Date Value 01/13/2022 5.77 01/14/2021 5.50 Past medical history, appointments, medications, allergies reviewed. Previous Medical History PAST MEDICAL HISTORY Diagnosis Date Allergic rhinitis Asthma Dr. Hylton CAD (coronary artery disease) Dr. Oh Cat allergies GERD (gastroesophageal reflux disease) Hyperlipidemia Kidney stones Previous Surgical History PAST SURGICAL HISTORY Procedure Laterality Date COLONOSCOPY FLX DX W/COLLJ SPEC WHEN PFRMD 08/28/2012 Colonoscopy ESOPHAGOGASTRODUODENOSCOPY TRANSORAL DIAGNOSTIC 08/28/2012 EGD LAP HERNIA REPAIR W/MESH 03/22/2016 ventral and umb LAPS REPAIR HERNIA EXCEPT INCAL/INGUN REDUCIBLE 03/22/2016 PAST SURGICAL HISTORY OF 1999 PTCA Family History FAMILY HISTORY Problem Relation Age of Onset Hypertension Mother Lipids Mother Breast Cancer Mother Coronary Artery Disease Mother atrial fibrillation, 4v CABG age 76 Emphysema Father Coronary Artery Disease Father other (parkinsons's disease) Maternal Grandfather Patient Allergies ALLERGIES No Known Allergies Current Medications Current Outpatient Medications on File Prior to Visit Medication Sig omeprazole (PRILOSEC) 20 mg capsule Take 1 capsule by mouth daily before breakfast. 1/2 hr before meal. simvastatin (ZOCOR) 40 mg tablet Take 1 tablet by mouth daily at bedtime. montelukast (SINGULAIR) 10 mg tablet Take 1 tablet by mouth daily at bedtime. fluticasone (FLOVENT HFA) 220 mcg/actuation inhaler Inhale 1 Puff as instructed twice daily. albuterol HFA (PROAIR HFA) 90 mcg/actuation inhaler Inhale 2 Puffs as instructed every 4 hours as needed. budesonide (PULMICORT FLEXHALER) 180 mcg/actuation aepb Inhale 2 Puffs as instructed twice daily. MULTI-VITAMIN ORAL Take by mouth. ascorbic acid (VITAMIN C) 500 mg tablet Take 500 mg by mouth once daily. Aspirin 81 mg ORAL Tab Take 81 mg by mouth. No current facility-administered medications on file prior to visit. Social History Social History Tobacco Use Smoking status: Never Smokeless tobacco: Never Substance Use Topics Alcohol use: Yes Comment: occasional Drug use: No EXAM: BP 128/78 Pulse 68 Resp 16 Ht 163.8 cm (5' 4.5) Wt 86.6 kg (191 lb) BMI 32.28 kg/m General Appearance: Well appearing, alert, in no acute distress, well-hydrated, well nourished. and Obese. Skin: Skin color, texture, turgor normal, + actinic keratosis x 1 on right forearm, actinic keratosis x 1 on left forearm Head: Normocephalic, no masses, lesions, tenderness or abnormalities. Eyes: Anicteric sclera. Pupils are equally round and reactive to light. Extraocular movements are intact. . Ears: External ears normal, canals clear. Oropharynx: Lips, mucosa, and tongue normal, teeth and gums normal, oropharynx normal. Neck: Supple, no adenopathy; thyroid symmetric, normal size, no bruits. Back:no pain to palpation of vertebrae, good flexion and extension, good range of motion, no muscle tenderness, reflexes are 2+ and symmetric, motor and sensory appear to be normal, negative SLR test, no evidence of scoliosis Lungs: Lungs clear to auscultation. No wheezing, rhonchi, rales.. Heart: RRR without murmur, gallop, or rubs. No ectopy. Abdomen: Normal abdominal exam, Abdomen soft, non-tender. Bowel sounds normal. No masses, organomegaly, Positive findings: obese. Extremities: No deformities, edema, skin discoloration, clubbing or cyanosis. Good capillary refill. . Musculoskeletal: + left MCP joint with TTP and grinding with movement, no signs of dislocation or instability, negative danielle's testing. Peripheral Pulses: Normal. Neurologic: Gait normal. Reflexes normal and symmetric. Sensation grossly intact.. Health Maintenance List SPIROMETRY Never done HIV SCREENING Never done PNEUMOCOCCAL(2 - PCV) due on 12/25/2013 COVID-19 VACCINE(2 - Booster for Frantz series) due on 12/01/2020 DEPRESSION ASSESSMENT Never done INFLUENZA(1) due on 12/14/2021 ANNUAL PCP TEAM CHRONIC DISEASE VISIT due on 01/11/2022 COLORECTAL CANCER SCREENING due on 08/28/2022 LDL CHOLESTEROL due on 01/13/2023 DIABETES SCREEN due on 01/13/2025 LIPID SCREEN due on 01/13/2027 PROSTATE CANCER SCREENING DISCUSSION due on 01/13/2027 DTAP,TDAP,TD(3 - Td or Tdap) due on 09/27/2029 HEPATITIS C SCREENING Completed SHINGRIX VACCINE Completed Data reviewed Appointment on 01/13/2022 Component Date Value PSA Screening 01/13/2022 0.95 Hemoglobin A1C 01/13/2022 5.3 Estimated Average Glucose 01/13/2022 105 WBC 01/13/2022 5.77 RBC 01/13/2022 5.49 Hemoglobin 01/13/2022 16.1 Hematocrit 01/13/2022 49.1 MCV 01/13/2022 89.4 MCH 01/13/2022 29.3 MCHC 01/13/2022 32.8 RDW-CV 01/13/2022 13.2 Platelet Count 01/13/2022 236 MPV 01/13/2022 9.9 Neut% 01/13/2022 60.0 Abs Neut 01/13/2022 3.47 Lymph% 01/13/2022 26.0 Abs Lymph 01/13/2022 1.50 [place]% 01/13/2022 9.4 Abs [place] 01/13/2022 0.54 Eosin% 01/13/2022 3.5 Abs Eosin 01/13/2022 0.20 Baso% 01/13/2022 0.9 Abs Baso 01/13/2022 0.05 Immature Gran % 01/13/2022 0.2 Abs Immature Gran 01/13/2022 <0.03 NRBC 01/13/2022 0.0 Absolute nRBC 01/13/2022 <0.01 Diff Type 01/13/2022 Auto Protein, Total 01/13/2022 6.7 Albumin 01/13/2022 4.4 Calcium, Total 01/13/2022 9.4 Bilirubin, Total 01/13/2022 0.8 Alkaline Phosphatase 01/13/2022 75 AST 01/13/2022 30 ALT 01/13/2022 27 Glucose 01/13/2022 86 BUN 01/13/2022 11 Creatinine 01/13/2022 0.84 Sodium 01/13/2022 141 Potassium 01/13/2022 4.2 Chloride 01/13/2022 107 (A) CO2 01/13/2022 23 Anion Gap 01/13/2022 11 Estimated Glomerular [place]* 01/13/2022 99 Cholesterol, Total 01/13/2022 168 Triglyceride 01/13/2022 122 HDL Cholesterol 01/13/2022 52 Non HDL Cholesterol 01/13/2022 116 Fasting Time 01/13/2022 10 VLDL Cholesterol 01/13/2022 24 TC:HDL Ratio 01/13/2022 3.23 LDL Cholesterol 01/13/2022 92 LDL:HDL Ratio 01/13/2022 1.77 ASSESSMENT/PLAN: 1. Well adult exam - ICD9: V70.0, ICD10: Z00.00 (primary diagnosis) - Counseled on healthy diet and regular exercise - Discussed need for and benefit of weight loss. BMI 32.28 kg/(m^2) 2. Need for influenza vaccination - ICD9: V04.81, ICD10: Z23 - INFLUENZA VACCINE QUADRIVALENT 6 MO - 64 YRS IM 3. Need for pneumococcal vaccination - ICD9: V03.82, ICD10: Z23 - PNEUMOCOCCAL VACCINE (PREVNAR 20) 4. Chronic pain of left thumb - ICD9: 729.5, 338.29, ICD10: M79.645, G89.29 Xray of hand/thumb and referral to orthopedics, likely related to OA of thumb - CONSULT TO ORTHOPAEDICS - XR HAND GENERAL 3V PA/LAT/OBL LEFT 5. Hyperlipidemia, unspecified hyperlipidemia type - ICD9: 272.4, ICD10: E78.5 - to be determined upon return of lab results - Encouraged following a low fat, low cholesterol diet. - Discussed the benefits of regular aerobic exercise and weight loss. 6. Coronary artery disease due to lipid rich plaque - ICD9: 414.00, 414.3, ICD10: I25.10, I25.83 - f/u with Dr. Oh 7. Actinic keratosis - ICD9: 702.0, ICD10: L57.0 - treated x 2 in office with cryotherapy, tolerated well, no complications. Aware of wound care after procedure. Kal Vazquez DO documented in this encounter [facility] 11-09-2021 Miscellaneous Notes Patient phones requesting refills as follows: Pending Prescriptions Disp Refills SIMVASTATIN 40 MG TABLET 90 tablet 3 Sig: Take 1 tablet by mouth daily at bedtime. ELVIA: No NAVYA-01/11/21 Labs-01/14/21 NOV-none med filled 01/11/21 Please review and advise. Mara Benjamin LPN documented in this encounter [facility] 07-10-2021 Miscellaneous Notes Patient has been identified by name and date of : Yes Patient phones for refill(s): Pending Prescriptions Disp Refills MONTELUKAST 10 MG TABLET 90 tablet 3 Sig: Take 1 tablet by mouth daily at bedtime. ELVIA: No Date of last office visit in primary care: 01/11/21 Last 2 Encounter Wt Readings: Date: Wt: 04/21/2021 85.6 kg (188 lb 12.8 oz) 01/11/2021 86.6 kg (191 lb) Previous labs/tests for medication: Not applicable Please advise. Thank you. Anna Rogers LPN documented in this encounter [facility] 02-27-1999 Evaluation note Diagnosis Onset Date HLD (hyperlipidemia) chronic History of coronary artery stent placement February 27, 1999 resolved [facility] Work Phone: Evaluation note* Diagnosis Well adult exam- Primary Routine general medical examination at a health care facility Need for influenza vaccination Need for prophylactic vaccination and inoculation against influenza Need for pneumococcal vaccination Need for prophylactic vaccination against streptococcus pneumoniae (pneumococcus) Chronic pain of left thumb Hyperlipidemia, unspecified hyperlipidemia type Coronary artery disease due to lipid rich plaque Actinic keratosis [facility] Diagnosis Chronic pain of left thumb [facility] Diagnosis Primary osteoarthritis of first carpometacarpal joint of left hand- Primary Primary localized osteoarthrosis, hand Chronic pain of left thumb [facility] Diagnosis Atypical squamoproliferative skin lesion- Primary Acute upper respiratory infection Acute upper respiratory infections of unspecified site Acute non-recurrent sinusitis of other sinus [facility] Diagnosis Atypical squamoproliferative skin lesion- Primary Moderate persistent asthma without complication Unspecified asthma [facility] Diagnosis Well adult exam- Primary Routine general medical examination at a health care facility Screening for colon cancer Special screening for malignant neoplasms, colon Hyperlipidemia, unspecified hyperlipidemia type Moderate persistent asthma without complication Unspecified asthma Coronary artery disease due to lipid rich plaque Gastroesophageal reflux disease without esophagitis Esophageal reflux [facility] Diagnosis Moderate persistent asthma without complication Unspecified asthma [facility] Diagnosis Moderate persistent asthma without complication- Primary Unspecified asthma [facility] Diagnosis Rhinosinusitis- Primary Unspecified sinusitis (chronic) Acute cough [facility]* Diagnosis Well adult exam- Primary Routine general medical examination at a health care facility Hyperlipidemia, unspecified hyperlipidemia type Screening for prostate cancer Special screening for malignant neoplasm of prostate [facility]* Diagnosis Gastroesophageal reflux disease without esophagitis Esophageal reflux [facility]* Diagnosis Hyperlipidemia, unspecified hyperlipidemia type [facility]* Diagnosis Well adult exam- Primary Routine general medical examination at a health care facility Need for influenza vaccination Need for prophylactic vaccination and inoculation against influenza LVH (left ventricular hypertrophy) Cardiomegaly Actinic keratosis Gastroesophageal reflux disease without esophagitis Esophageal reflux Coronary artery disease due to lipid rich plaque Hyperlipidemia, unspecified hyperlipidemia type Moderate persistent asthma without complication Unspecified asthma [facility] Diagnosis Moderate persistent asthma without complication Unspecified asthma [facility]* Diagnosis Moderate persistent asthma without complication (HCC) Unspecified asthma [facility]* Diagnosis Well adult exam- Primary Routine general medical examination at a health care facility LVH (left ventricular hypertrophy) Cardiomegaly Hyperlipidemia, unspecified hyperlipidemia type Coronary artery disease due to lipid rich plaque Vitamin D deficiency Unspecified vitamin D deficiency [facility]* Diagnosis Onset Date Resolution Status Admit Date Back pain acute January 18 025 9:28am Segmental and somatic dysfunction of cervical region acute O ctober 2024 9:28am Segmental and somatic dysfunction of lumbar region acute Jan chloe 2024 9:28am Segmental and somatic dysfunction of pelvic region acute Jan chloe 2024 9:28am Segmental and somatic dysfunction of thoracic region acute O ctober 2024 9:28am [facility] Work Phone: Progress note Author America Agustin [facility] Note Date/Time January 18, 2025 10 :15am [facility] [address] [place] [address] OFFICE VISIT Date of Service: 01/18/25 MR#: [id number] Acct: [id number] Name: TEODORO RIZZO Rep #: [id number] : 1960 Provider: DERICK Agustin Age/Sex: 64/M Location: [facility] Status: Signed Intake Vital Signs 04/28/24 11:19 01/18/25 09:46 Height 5 ft 5 in 5 ft 5 in Weight: 197 lb BMI 32.8 BP 129/75 H 146/84 H Blood Pressure Location Lt brachial Position Sitting Respiration 18 Pulse 51 L Pulse Source Monitor Pulse Oximetry (%) 97 Intake Visit Reasons: REEVAL Chief Complaint: neck and low Back Pain Is patient in pain?: Yes (neck and low back ) Pain scale (1-10): 3 Allergies No Known Allergies Allergy (Verified 01/18/25 09:29) Medications ?Medication ?Instructions ?Recorded ?Confirmed ?Type ascorbic acid (vitamin C) 1,000 mg 1,000 mg PO DAILY 1 05/16/15 01/18/25 History tablet aspirin 81 mg tablet,delayed 81 mg PO DAILY 03/15/16 1 History release multivitamin with folic acid 400 1 tab PO DAILY 01/18/25 History mcg tablet omeprazole 20 mg capsule,delayed 20 mg PO DAILY 01/18/25 History release albuterol sulfate 90 mcg/actuation 2 puff inhalation Q 2H PRN PRN 08/09/17 01/18/25 History aerosol inhaler Asthma 30 days ##9 montelukast 10 mg tablet 10 mg PO QDAY 08/09/1701/18 History (Singulair) simvastatin 40 mg tablet 40 mg PO QHS #90 tabs 01/18/25 Rx nitroglycerin 0.4 mg sublingual 0.4 mg sublingual Q5-1 5M PRN chest 09/11/22 01/18/25 Rx tablet (Nitrostat) pain #25 tabs budesonide 180 mcg/actuation 2 inh inhalation BID 03/1601/18/25 History breath activated powder inhaler (Pulmicort Flexhaler) cholecalciferol (vitamin D3) 25 1,000 unit PO DAILY 01/18/25 History mcg (1,000 unit) capsule (Vitamin D3) Have you fallen in the past year?: No PFSH Medical History (Updated 01/18/25 @ 10:[address] 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 HLD (hyperlipidemia) Surgical History History of left heart catheterization (03/30/99) History of coronary artery stent placement (02/27/99) History of herniorrhaphy Family History Father CAD (coronary artery disease) Mother Breast cancer Social History Smoking Status: Never smoker alcohol intake: never substance use type: does not use caffeine: Yes Type: tea Number of servings: 1 what type of physical activity do you participate in: other seatbelt use: always do you feel safe at home: Yes HPI REEVAL Chief Complaint: neck and low back pain Visit Number: 1 Details: Teodoro is a 64 y/o male here for a re-evaluation of neck and back pain. Pt. has not been in for an adjustment for over 2 years. 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 He c/o low back and bilateral hip pain, left>right. He states he also experiences bilateral hip and quad numbness and tingling at times. He states he noticed the flare up in September after taking a long road trip to see his son in [place]. He was sitting the the car for long periods of time which he believes was the cause of his pain. He would like his hips checked for alignment. He also complains of L sided lower neck/upper back pain. He denies known injury.The pain has been persistent since the trip. He treats pain at timewith Motrin as needed. He states chiropractic adjustments have been helpful in the past. Location: neck, low back/ hips Duration: frequent Aggravating or associated factors: walking, driving,ROM Relieving factors: none Pain Quality: aching, dull, radiating and other (numbness) Exam Musc General: Yes normal gait, joint tenderness and decreased range of motion; No normal posture or muscle weakness Cervical Spine: Yes loss of normal cervical lordosis, Yes cervical muscular tenderness left lower , Yes pain with cervical ROM (L sided pain) with lateral flexion to right, with lateral flexion to left, with rotation to left, with rotation to right, with anterior flexion and with extension, Yes cervical spasm left greater than right lower trapezius and paracervical muscles and Yes misalignment misalignment: C5, C6 and C7 Thoracic/Lumber: No thoracic and lumbar spine normal to inspection (anterior head carriage), Yes Lasegue's sign positive on the left, Yes pain with thoraco-lumbar ROM with forward flexion and with lateral flexion to the right, Yes thoraco-lumbar ROM limited with forward flexion, with lateral flexion to the right, with lateral flexion to the left, with rotation to the right and with rotation to the left, Yes thoraco-lumbar spasm on the left greater than right (QL, ITB) and Yes misalignment T1, T2, L2, L3, L4 and LIL Sacroiliac joints: on the left tender to palpation Neuro General: patient alert, patient awake, patient oriented x3, normal light touch, pain and propioception and deep tendon reflexes 2+ bilaterally Cognition: normal cognition Speech: speech normal Gait: normal gait Motor: muscle tone normal throughout Sensory Exam: no sensory deficits noted DTR's: Rt Patellar: 2+, Lt Patellar: 2+, Rt Ankle: 2+ and Lt Ankle: 2+ Ortho Test CERVICAL Compression pain: Negative Distraction pain: relief Antonio's pain: Negative Valsalvas: Negative Shoulder depression pain: Left THORACIC Kemps: Negative LUMBAR Kemps: Positive and Left Valsalvas: Negative SLR: Negative Iliac Compression: Positive and Left Office Procedures Procedures - Chiropractic Procedures Manipulation: Cervical C6, Lumbar L3, Thoracic T2 and Pelvis LIL Manipulation: 3-4 regions Electronic Stimulation: Yes Electrical Stimulation: Lumbar 15 mins (23) mA Therapy Performed by:: Merlene Alvarez Patient Response: positive Assessment and Plan Assessment and Plan (1) Segmental and somatic dysfunction of pelvic region: Status: Acute (2) Segmental and somatic dysfunction of lumbar region: Status: Acute (3) Back pain: Status: Acute Qualifiers: Back pain location: low back pain Chronicity: acute Back pain laterality: left Sciatica presence: with sciatica Sciatica laterality: bilateral sciatica Qualified Code(s): M54.42 - Lumbago with sciatica, left side; M54.41 - Lumbago with sciatica, right side (4) Segmental and somatic dysfunction of cervical region: Status: Acute (5) Segmental and somatic dysfunction of thoracic region: Status: Acute Orders: Orders Chiropractic Treatments Today M99.03 - Segmental and somatic dysfunction of lumbar region, M99.05 - Segmental and somatic dysfunction of pelvic region Plan Patient was re-evaluated and treated without incident. Follow up in 1 week and monitor patient progress. Plan Details Goals & Barriers: Goals Decrease pain Improve ROM Decrease inflammation Follow Up: 1 Week Coding Level of Care Code Off vis,est,level 2 Diagnoses Segmental and somatic dysfunction of pelvic region M99.05 Segmental and somatic dysfunction of lumbar region M99.03 Acute left-sided low back pain with bilateral sciatica M54.42; M54.41 Back pain location: low back pain Chronicity: acute Back pain laterality: left Sciatica presence: with sciatica Sciatica laterality: bilateral sciatica Segmental and somatic dysfunction of cervical region M99.01 Segmental and somatic dysfunction of thoracic region M99.02 CPT Codes Procedures - Manipulation: 3-4 regions (15024) Procedures - Electronic Stimulation: Yes (30551) Clinical Quality Measures Falls Risk Screening/Assistive Devices Have you fallen in the past year?: No 01/18/25 1016 <Electronically signed by America Enriquez> Date _ America Agustin D.C. Cosigner Signature: Date (if applicable) CC: ~ [place] [employer] Work Phone: [facility] for referral (narrative)* Diagnostic Procedure Only (Routine) - Pending Review Specialty Diagnoses / Procedures Referred By Contac t Referred To Contact XR IMAGING Diagnoses Chronic pain of left thumb Procedures XR HAND GENERAL 3V PA/LAT/OBL LEFT RADEX HAND MINIMUM 3 VIEWS Kal Vazquez DO [address] [id number] Xr Imaging Referral ID Status Reason Start Date Expiration Date Visits Requested Visits Authorized [id number] Pending Review Auto-Generat ed Referral 01/19/2022 02/18/2023 1 1 * Consult, Test, Treat (Routine) - Authorized Specialty Diagnoses / Procedures Referred By Contac t Referred To Contact Orthopedics Diagnoses Chronic pain of left thumb Procedures CONSULT TO ORTHOPAEDICS OFFICE/OUTPATIENT [facility] 60-74 MINUTES Kal Vazquez DO [address] [place] [address] Referral ID Status Reason Start Date Expiration Date Visits Requested Visits Authorized [id number] Authorized PCP Requested Referral 01/19/2022 01/19/2023 1 1 [facility] for referral (narrative)* Diagnostic Procedure Only (Routine) - Closed Specialty Diagnoses / Procedures Referred By Contac t Referred To Contact XR IMAGING Diagnoses Chronic pain of left thumb Procedures XR HAND GENERAL 3V PA/LAT/OBL LEFT RADEX HAND MINIMUM 3 VIEWS Kal Vazquez DO [address] [place] [address] Xr Imaging Referral ID Status Reason Start Date Expiration Date V isits Requested Visits Authorized [id number] Closed Auto-Generate d Referral 01/19/2022 02/18/2023 1 1 [facility] for referral (narrative)* Outpatient Procedure (Routine) - Pending Review Specialty Diagnoses / Procedures Referred By Contac t Referred To Contact [facility] Diagnoses Screening for colon cancer Procedures COLONOSCOPY SCREENING COLONOSCOPY FLX DX W/COLLJ SPEC WHEN PFRMD Kal Vazquez DO [address] [place] [address] [facility] [address] [place] [id number] Referral ID Status Reason Start Date Expiration Date Visits Requested Visits Authorized [id number] Pending Review Auto-Generat ed Referral 03/20/2023 03/20/2024 1 1 [facility] for referral (narrative)* Outpatient Procedure (Routine) - Authorized Specialty Diagnoses / Procedures Referred By Contac t Referred To Contact [facility] Diagnoses LVH (left ventricular hypertrophy) Procedures ECHO ECHO TTHRC R-T 2D W/WOM-MODE COMPL SPEC&COLR D Kal Vazquez DO [address] [place] [address] [facility] [address] [address] Referral ID Status Reason Start Date Expiration Date Visits Requested Visits Authorized [id number] Authorized Auto-Generat ed Referral 02/11/2025 1 1 [facility] for referral (narrative)No reason for referral information [facility]St[facility] Work Phone: [facility] for [facility] Narrative* Diagnostic Procedure Only (Routine) - Closed Specialty Diagnoses / Procedures Referred By Contac t Referred To Contact XR IMAGING Diagnoses Chronic pain of left thumb Procedures XR HAND GENERAL 3V PA/LAT/OBL LEFT RADEX HAND MINIMUM 3 VIEWS Kal Vazquez DO [address] [place] [address] Xr Imaging Referral ID Status Reason Start Date Expiration Date V isits Requested Visits Authorized [id number] Closed Auto-Generate d Referral 01/19/2022 02/18/2023 1 1 [facility] Advance Directives No Advanced Directives Records FoundDocuments on File Type Date Recorded 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 Advance Directive(s) 06/04/2019 11:44 AM Documents on File Type Date Recorded 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 Advance Directive(s) 06/04/2019 11:44 AM Advance Directive Response Recorded Date/ Time Advance Directives No March 22, 2016 10:01am Living Will Yes November 13, 2019 2:57am Power of Foreign Banknote Teller Yes November 12 2:57am Advance Directive Response Recorded Date/ Time Advance Directives No March 22, 2016 11:01am Chief Complaint and Reason for Visit Chief Complaint 6 M FU CAD,DOT CAD,DOT Reason for Visit HLD (hyperlipidemia) History of coronary artery stent placement Chief Complaint Admit Date REEVAL January 18, 2025 9: 28am Reason for Visit Admit Date Back pain January 18, 2025 9: 28am Segmental and somatic dysfunction of cer vical region January 18, 2025 9:28am Segmental and somatic dysfunction of lum bar region January 18, 2025 9:28am Segmental and somatic dysfunction of pel diann region January 18, 2025 9:28am Segmental and somatic dysfunction of tho racic region January 18, 2025 9:28am Family History No Family History Records Found Relationship Condition Age at Onset Recorded Date/T aston father Coronary artery disease Unknown mother Malignant neoplasm of breast Unknown Summary Purpose Additional Source Comments Source Comments (unrecognize d section and content) In the event this informatio n is protected by the Federal Confidentiality of Alcohol and Drug Abuse Patient Records regulations: The Federal rules restrict any use of the information to criminally investigate or prosecute any alcohol or drug abuse patient.[facility] the event this information is protected by the Federal Confidentiality of Alcohol and Drug Abuse Patient Records regulations: The Federal rules restrict any use of the information to criminally investigate or prosecute any alcohol or drug abuse patient.[facility] SystemIn the event this information is protected by the Federal Confidentiality of Alcohol and Drug Abuse Patient Records regulations: The Federal rules restrict any use of the information to criminally investigate or prosecute any alcohol or drug abuse patient.[facility] SystemIn the event this information is protected by the Federal Confidentiality of Alcohol and Drug Abuse Patient Records regulations: The Federal rules restrict any use of the information to criminally investigate or prosecute any alcohol or drug abuse patient.[facility] SystemIn the event this information is protected by the Federal Confidentiality of Alcohol and Drug Abuse Patient Records regulations: The Federal rules restrict any use of the information to criminally investigate or prosecute any alcohol or drug abuse patient.[facility] SystemIn the event this information is protected by the Federal Confidentiality of Alcohol and Drug Abuse Patient Records regulations: The Federal rules restrict any use of the information to criminally investigate or prosecute any alcohol or drug abuse patient.[facility] SystemIn the event this information is protected by the Federal Confidentiality of Alcohol and Drug Abuse Patient Records regulations: The Federal rules restrict any use of the information to criminally investigate or prosecute any alcohol or drug abuse patient.[facility] SystemIn the event this information is protected by the Federal Confidentiality of Alcohol and Drug Abuse Patient Records regulations: The Federal rules restrict any use of the information to criminally investigate or prosecute any alcohol or drug abuse patient.[facility] SystemIn the event this information is protected by the Federal Confidentiality of Alcohol and Drug Abuse Patient Records regulations: The Federal rules restrict any use of the information to criminally investigate or prosecute any alcohol or drug abuse patient.[facility] System[facility] the event this information is protected by the Federal Confidentiality of Alcohol and Drug Abuse Patient Records regulations: The Federal rules restrict any use of the information to criminally investigate or prosecute any alcohol or drug abuse patient.[facility] SystemIn the event this information is protected by the Federal Confidentiality of Alcohol and Drug Abuse Patient Records regulations: The Federal rules restrict any use of the information to criminally investigate or prosecute any alcohol or drug abuse patient.[facility] SystemIn the event this information is protected by the Federal Confidentiality of Alcohol and Drug Abuse Patient Records regulations: The Federal rules restrict any use of the information to criminally investigate or prosecute any alcohol or drug abuse patient.[facility] SystemIn the event this information is protected by the Federal Confidentiality of Alcohol and Drug Abuse Patient Records regulations: The Federal rules restrict any use of the information to criminally investigate or prosecute any alcohol or drug abuse patient.[facility] SystemIn the event this information is protected by the Federal Confidentiality of Alcohol and Drug Abuse Patient Records regulations: The Federal rules restrict any use of the information to criminally investigate or prosecute any alcohol or drug abuse patient.[facility] SystemIn the event this information is protected by the Federal Confidentiality of Alcohol and Drug Abuse Patient Records regulations: The Federal rules restrict any use of the information to criminally investigate or prosecute any alcohol or drug abuse patient.[facility] SystemIn the event this information is protected by the Federal Confidentiality of Alcohol and Drug Abuse Patient Records regulations: The Federal rules restrict any use of the information to criminally investigate or prosecute any alcohol or drug abuse patient.[facility] SystemIn the event this information is protected by the Federal Confidentiality of Alcohol and Drug Abuse Patient Records regulations: The Federal rules restrict any use of the information to criminally investigate or prosecute any alcohol or drug abuse patient.[facility] SystemIn the event this information is protected by the Federal Confidentiality of Alcohol and Drug Abuse Patient Records regulations: The Federal rules restrict any use of the information to criminally investigate or prosecute any alcohol or drug abuse patient.[facility] SystemIn the event this information is protected by the Federal Confidentiality of Alcohol and Drug Abuse Patient Records regulations: The Federal rules restrict any use of the information to criminally investigate or prosecute any alcohol or drug abuse patient.[facility] SystemIn the event this information is protected by the Federal Confidentiality of Alcohol and Drug Abuse Patient Records regulations: The Federal rules restrict any use of the information to criminally investigate or prosecute any alcohol or drug abuse patient.[facility] SystemIn the event this information is protected by the Federal Confidentiality of Alcohol and Drug Abuse Patient Records regulations: The Federal rules restrict any use of the information to criminally investigate or prosecute any alcohol or drug abuse patient.[facility] SystemIn the event this information is protected by the Federal Confidentiality of Alcohol and Drug Abuse Patient Records regulations: The Federal rules restrict any use of the information to criminally investigate or prosecute any alcohol or drug abuse patient.[facility] SystemIn the event this information is protected by the Federal Confidentiality of Alcohol and Drug Abuse Patient Records regulations: The Federal rules restrict any use of the information to criminally investigate or prosecute any alcohol or drug abuse patient.[facility] SystemIn the event this information is protected by the Federal Confidentiality of Alcohol and Drug Abuse Patient Records regulations: The Federal rules restrict any use of the information to criminally investigate or prosecute any alcohol or drug abuse patient.[facility] SystemIn the event this information is protected by the Federal Confidentiality of Alcohol and Drug Abuse Patient Records regulations: The Federal rules restrict any use of the information to criminally investigate or prosecute any alcohol or drug abuse patient.[facility] SystemIn the event this information is protected by the Federal Confidentiality of Alcohol and Drug Abuse Patient Records regulations: The Federal rules restrict any use of the information to criminally investigate or prosecute any alcohol or drug abuse patient.[facility] SystemIn the event this information is protected by the Federal Confidentiality of Alcohol and Drug Abuse Patient Records regulations: The Federal rules restrict any use of the information to criminally investigate or prosecute any alcohol or drug abuse patient.[facility] SystemIn the event this information is protected by the Federal Confidentiality of Alcohol and Drug Abuse Patient Records regulations: The Federal rules restrict any use of the information to criminally investigate or prosecute any alcohol or drug abuse patient.[facility] SystemIn the event this information is protected by the Federal Confidentiality of Alcohol and Drug Abuse Patient Records regulations: The Federal rules restrict any use of the information to criminally investigate or prosecute any alcohol or drug abuse patient.[facility] the event this information is protected by the Federal Confidentiality of Alcohol and Drug Abuse Patient Records regulations: The Federal rules restrict any use of the information to criminally investigate or prosecute any alcohol or drug abuse patient.[facility] SystemIn the event this information is protected by the Federal Confidentiality of Alcohol and Drug Abuse Patient Records regulations: The Federal rules restrict any use of the information to criminally investigate or prosecute any alcohol or drug abuse patient.[facility] SystemIn the event this information is protected by the Federal Confidentiality of Alcohol and Drug Abuse Patient Records regulations: The Federal rules restrict any use of the information to criminally investigate or prosecute any alcohol or drug abuse patient.[facility] SystemIn the event this information is protected by the Federal Confidentiality of Alcohol and Drug Abuse Patient Records regulations: The Federal rules restrict any use of the information to criminally investigate or prosecute any alcohol or drug abuse patient.[facility] SystemIn the event this information is protected by the Federal Confidentiality of Alcohol and Drug Abuse Patient Records regulations: The Federal rules restrict any use of the information to criminally investigate or prosecute any alcohol or drug abuse patient.[facility] SystemIn the event this information is protected by the Federal Confidentiality of Alcohol and Drug Abuse Patient Records regulations: The Federal rules restrict any use of the information to criminally investigate or prosecute any alcohol or drug abuse patient.[facility] Reason for Visit (unrecogniz ed section and content) Reason Onset Date Comments Refill Request 07/10/2021 Reason Onset Date Comments Refill Request 11/09/2021 Reason Onset Date Comments Physical Immunizations 01/19/2022 Flu vaccination Reason Comments New Pain Specialty Diagnoses / Procedures Referred By Yuriy t Referred To Contact Orthopedics Diagnoses Chronic pain of left thumb Procedures CONSULT TO ORTHOPAEDICS OFFICE/OUTPATIENT NEW HIGH MDM 60-74 MINUTES Kal Vazquez, [address] [place] [address] Referral ID Status Reason Start Date Expiration Date V isits Requested Visits Authorized [id number] Closed PCP Requested Referral 01/19/2022 01/19/2023 1 1 Reason Comments Derm Problem skin tag/mole on rig ht cheeksore throat x 4 days Reason Onset Date Comments Refill Request 07/30/2022 Reason Comments Derm Problem lesion on nose Reason Onset Date Comments Refill Request 01/19/2023 Reason Onset Date Comments Refill Request 02/01/2023 Reason Comments Yearly Exam Reason Onset Date Comments Refill Request 07/27/2023 Reason Comments Rx Refills Reason Onset Date Comments Refill Request 08/08/2023 Reason Comments Cough Congestion and jaw p ain x2 weeks Reason Comments Orders Reason Onset Date Comments Refill Request 01/21/2024 Reason Onset Date Comments Refill Request 01/30/2024 Reason Onset Date Comments Yearly Exam Immunizations 02/12/2024 Flu vaccination Reason Comments COLON ASC Reason Onset Date Comments Refill Request 04/26/2024 Reason Onset Date Comments Refill Request 08/17/2024 Reason Onset Date Comments Refill Request 08/14/2024 Reason Onset Date Comments Refill Request 08/25/2024 Reason Onset Date Comments Refill Request 09/25/2024 Care Teams (unrecognized sec tion and content) Roto Mixer Operator Relationship Specialty Start Date End Date Kal Vazquez, DO [address] [place] [address] PCP - General Family Practice 10/14/18 Roto Mixer Operator Relationship Specialty Start Date End Date Kal Vazquez, DO [address] [place] [address] PCP - General Family Practice 10/14/18 Roto Mixer Operator Relationship Specialty Start Date End Date Kal Vazquez, DO [address] [place] [address] PCP - General Family Medicine 10/14/18 Roto Mixer Operator Relationship Specialty Start Date End Date Kal Vazquez, DO [address] [place] [address] PCP - General Family Medicine 10/14/18 Roto Mixer Operator Relationship Specialty Start Date End Date Kal Vazquez, DO [address] [place] [address] PCP - General Family Medicine 10/14/18 Roto Mixer Operator Relationship Specialty Start Date End Date Kal Vazquez, DO [address] [place] [address] PCP - General Family Medicine 10/14/18 Roto Mixer Operator Relationship Specialty Start Date End Date Kal Vazquez, DO [address] [place] [address] PCP - General Family Medicine 10/14/18 Roto Mixer Operator Relationship Specialty Start Date End Date Kal Vazquez, DO [address] [place] [address] PCP - General Family Medicine 10/14/18 Roto Mixer Operator Relationship Specialty Start Date End Date Kal Vazquez, DO [address] [place] [address] PCP - General Family Medicine 10/14/18 Roto Mixer Operator Relationship Specialty Start Date End Date Kal Vazquez, DO [address] [place] [address] PCP - General Family Medicine 10/14/18 Roto Mixer Operator Relationship Specialty Start Date End Date Kal Vazquez DO [address] [place] [address] PCP - General Family Medicine 10/14/18 Roto Mixer Operator Relationship Specialty Start Date End Date Kal Vazquez DO [address] [place] [address] PCP - General Family Medicine 10/14/18 Roto Mixer Operator Relationship Specialty Start Date End Date Kal Vazquez DO [address] [place] [address] PCP - General Family Medicine 10/14/18 Roto Mixer Operator Relationship Specialty Start Date End Date Kal Vazquez DO [address] [place] [address] PCP - General Family Medicine 10/14/18 Team Status: Active Member Role Status Dates Dr. Kal Vazquez , Family Provider Active Dr. Kal Vazquez DO Primary Care Provider Active Team Status: Inactive Member Role Status Dates Dr. Kal Vazquez DO Primary Care Provider, Referr ing Provider Active Emeli Tavera LEDGER POSTER, LEDGER POSTER-C Attending Provider Active Team Status: Active Member Role Status Dates Dr. Kal Vazquez DO Primary Care Provider Active Dr. García Oh MD Attending Provider, Referring Provider, Other Provider Active Team Status: Inactive Member Role Status Dates Dr. Kal Vazquez DO Primary Care Provider Active Dr. García Oh MD Attending Provider, Referring Pro vider Active Roto Mixer Operator Relationship Specialty Start Date End Date Kal Vazquez DO [address] [place] [address] PCP - General Family Medicine 10/14/18 Roto Mixer Operator Relationship Specialty Start Date End Date Kal Vazquez DO [address] [place] [address] PCP - General Family Medicine 10/14/18 Roto Mixer Operator Relationship Specialty Start Date End Date Kal Vazquez DO [address] [place] [address] PCP - General Family Medicine 10/14/18 Roto Mixer Operator Relationship Specialty Start Date End Date Kal Vazquez DO [address] [place] [address] PCP - General Family Medicine 10/14/18 Roto Mixer Operator Relationship Specialty Start Date End Date Kal Vazquez DO [address] [place] [address] PCP - General Family Medicine 10/14/18 Roto Mixer Operator Relationship Specialty Start Date End Date Kal Vazquez DO [address] [place] [address] PCP - General Family Medicine 10/14/18 Roto Mixer Operator Relationship Specialty Start Date End Date Kal Vazquez DO [address] [place] [address] PCP - General Family Medicine 10/14/18 Nani Lackey, RECORD CLERK.STENCIL TYPIST [address] [place] [address] Drama Professor Family Medicine 03/22/24 AlenYana, RECORD CLERK.STENCIL TYPIST [address] [place] [address] Drama Professor Family [facility] 03/22/24 Roto Mixer Operator Relationship Specialty Start Date End Date Kal Vazquez DO [address] [place] [address] PCP - General Family Medicine 10/14/18 AlenYana, RECORD CLERK.STENCIL TYPIST [address] [place] [place] [address] Drama Professor [facility] 03/22/24 Roto Mixer Operator Relationship Specialty Start Date End Date Kal Vazquez DO [address] [place] [place] [address] PCP - General Family Medicine 10/14/18 AlenYana, RECORD CLERK.STENCIL TYPIST [address] [place] [place] [address] Drama Professor Family [facility] 03/22/24 Roto Mixer Operator Relationship Specialty Start Date End Date Kal Vazquez DO [address] [place] [place] [address] PCP - General Family Medicine 10/14/18 [facility] ElmerYana, RECORD CLERK.STENCIL TYPIST [address] [place] [place] [address] Drama Professor [facility] 03/22/24 Roto Mixer Operator Relationship Specialty Start Date End Date Kal Vazquez DO [address] [place] [place] [address] PCP - General Family Medicine 10/14/18 AlenYana, RECORD CLERK.STENCIL TYPIST [address] [place] [place] [address] Drama Professor Family [facility] 03/22/24 Susan Barker, RECORD CLERK.STENCIL TYPIST [address] [place] [address] [facility]24 Roto Mixer Operator Relationship Specialty Start Date End Date Kal Vazquez DO [address] [place] [place] [address] PCP - General Family Medicine 10/14/18 [facility] ElmerYana, RECORD CLERK.STENCIL TYPIST [address] [place] [place] [address] Drama Professor Family Medicine 03/22/24 Susan Barker RECORD CLERK.STENCIL TYPIST [address] [place] [address] [facility] 09/28/24 [employer] Mixer Operator Relationship Specialty Start Date End Date Kal Vazquez DO [address] [place], [place] [id number] PCP - General Family Medicine 10/14/18 Yana Lowry, SALLY.STENCIL TYPIST [address] [place], [place] [id number] Drama Professor [facility] 03/22/24 Susan Barker, RECORD CLERK.STENCIL TYPIST [address] [place], [place] [id number] [facility] 09/28/24 Team Status: Active Member Role/Relationship Status Dates Dr. Kal Vazquez DO Primary care physician Active Team Status: Inactive Member Role/Relationship Status Dates Dr. Kal Vazquez DO Primary care physician Active Start: January 18, 2025 End: January 18, 2025 Dr. Kal Vazquez DO Referring Provider Active Start: January 18, 2025 End: January 18, 2025 Dr. America Agustin , DERICK Attending physician Active Start: January 18, 2025 End: January 18, 2025 (unrecognized sect ion and content) No Status Records FoundNo Status Records Found INFORMATION SOURCE (unrecogn ized section and content) DATE CREATED AUTHOR 02/10/2025 [facility] DATE CREATED AUTHOR AUTHOR'S ORGANIZ ATION 02/23/2025 [facility] FOR RECORDS PERTAINING TO PATIENTS WHO ARE OR HAVE BEEN ENROLLED IN A CHEMICAL DEPENDENCY/SUBSTANCEABUSE PROGRAM, SOME INFORMATION MAY BE OMITTED. This clinical summary was aggregated from multiple sources. Caution should be exercised in using it in the provision of clinical care. This summary normalizes information from multiple sources, and as a consequence, information in this document may materially change the coding, format and clinical context of patient data. In addition, data may be omitted in some cases. CLINICAL DECISIONS SHOULD BE BASED ON THE PRIMARY CLINICAL RECORDS. [facility]. provides no warranty or guarantee of the accuracy or completeness of information in this document.
== END | disposition home or self-care (01) ==
LOC: PSN 08:51
PROVIDERS: PCP Student in an Organized Health Care Education/Training Program; Referring Provider Nurse Practitioner Gerontology; Visit Provider Nurse Practitioner Gerontology
DX: I49.3 Ventricular premature depolarization (principal)
CPT/HCPCS: 93225; 93226